=== PATIENT | male | born 1970 | race Caucasian/White ===

== ENCOUNTER 2016-10-03 21:45 | Inpatient (IN) | payer OTHER ==
--- NOTE | ~2016-10-03 | BMI ---
[facility] Nutrition Therapy DATE: 10/04/16 Patient: ASHLEY MEJIA Physician: RADHA Address: [address] [facility] Room/Bed: [address], Zip: [place] [address] Admit Date: 10/03/16 Date of : [birth year] Height: 5 5 Weight: 298 135.5 HIGH BMI NOTE: ANTHROPOMETRICS: HT: 65" WT: 135.5 KG BMI: 49.7 INTERVENTION: 1. HEART HEALTHY DIET RECOMMENDATIONS: 1. CONTINUE CURRENT DIET TOLERATED IN ORDER TO PROMOTE GRADUAL WEIGHT LOSS TOWARDS A HEALTHY BMI. Respectfully, LINSEY SORIA RD, LD Food and Nutritional Services [facility] cc: client file
--- NOTE | ~2016-10-03 | EKG ---
PATIENT: ASHLEY MEJIA UNIT #: [id number] Ventricular Rate: 106 BPM Atrial Rate: 106 BPM P-R Interval: 192 ms QRS Duration: 134 ms Q-T Interval: 358 ms QTC Calculation(Bezet): 475 ms P [place]: 58 degrees Calculated R [place]: 175 degrees Calculated T [place]: 35 degrees Diagnosis Line: Sinus tachycardia with Premature supraventricular Diagnosis Line: complexes Diagnosis Line: Right bundle branch block , plus right ventricular Diagnosis Line: hypertrophy Diagnosis Line: Abnormal ECG Diagnosis Line: When compared with ECG of 27-JUL-2016 23:30, Diagnosis Line: Premature supraventricular complexes are now Diagnosis Line: Present Diagnosis Line: QRS axis Shifted right Diagnosis Line: Questionable change in initial forces of Septal Diagnosis Line: leads Diagnosis Line: Confirmed by RENA CAR, MASON ([id number]) on 10/04/2016 Diagnosis Line: 6:34:30 AM INTERPRETING MD: RENA CAR
--- NOTE | ~2016-10-03 | HP ---
Unit #: [id number] #: [id number] Patient: ASHLEY MEJIA [id number] [address] [address] [id number] I MR#: [id number] NAME: ASHLEY MEJIA ROOM: 97838 Age: 46 Sex: M Admission Date: 10/03/2016 : 1970 Attending Physician: Carine Crisostomo M.D. Primary Care Physician: Primary Care Physician No HISTORY AND PHYSICAL CHIEF COMPLAINT Vrujp-lq-ombadnz respiratory failure secondary to pneumonia, COPD exacerbation, and decompensated congestive heart failure. HISTORY OF PRESENT ILLNESS This 46-year-old male with ischemic cardiomyopathy, COPD with chronic respiratory failure, obstructive sleep apnea, is admitted for usmjo-wf-uerzhzn respiratory failure. The patient states that he was well until two weeks prior to admission when he developed increasing shortness of breath with deep cough productive of brown sputum. He has been more short of breath over the past two days. Recently developed fevers, chills, pleuritic chest discomfort and wheezing. He presented to this emergency department where his initial O2 saturation was okay on nasal cannula. However, an ABG demonstrates kjiwc-zo-lkzrtus hypoxic hypercapnic respiratory failure. Therefore, BiPAP was placed. Chest x-ray shows right lower lobe pneumonia and likely congestive heart failure, patient's BNP is higher than usual. In the ER, he currently is receiving Solu-Medrol, Rocephin, Levaquin and Lasix. He looks to be quite comfortable. In fact, he pulls off his mask to give me history. Although he has a history of obstructive sleep apnea, he states that his BiPAP machine was recently taken away from him. He is having some difficulty I believe in obtaining his home oxygen as well possibly. PAST MEDICAL HISTORY 1. Admission in June for chronic cholecystitis requiring laparoscopic cholecystectomy. 2. Obstructive sleep apnea on BiPAP. 3. Ischemic cardiomyopathy status post two-vessel CABG in 2010. Prior to that, the patient had a PCI and stent. Ejection fraction 35%. He is status post tissue mitral valve replacement and is status post AICD placement. 4. Essential hypertension. 5. Hyperlipidemia. 6. COPD on 2.5 liters of oxygen. 7. Depression. 8. Chronic right bundle branch block. 9. Morbid obesity. 10. Cholecystectomy. ALLERGIES No known drug allergies. Unit #: [id number] #: [id number] Patient: ASHLEY MEJIA HOME MEDICATIONS 1. Lisinopril 10 mg daily. 2. Ventolin inhaler. 3. Lasix 20 mg daily. 4. Aldactone 25 mg daily. 5. Coreg 3.125 mg b.i.d. 6. Pravachol 20 mg h.s. 7. Singulair 10 mg q.a.m. 8. Breo Ellipta. However, in June, patient was discharged home on: Pulmike, Perforomist, Aaron Brunson. SOCIAL HISTORY The patient lives with his and son. He smokes two cigarettes daily, denies alcohol use. FAMILY HISTORY Negative for lung disease. REVIEW OF SYSTEMS Notable for increasing shortness of breath, productive cough, fevers, sweats, chills, wheezing, pleuritic chest discomfort, STANISLAW, COPD, ischemic cardiomyopathy, essential hypertension, hyperlipidemia, cholecystectomy, tobacco use. All other systems were reviewed and are negative. PHYSICAL EXAMINATION VITAL SIGNS: Temperature 98.1, pulse 89, respirations 18, blood pressure 155/96, O2 saturation 94% on arrival to the ER but I am unsure how much oxygen patient required. GENERAL: Pleasant, 46-year-old male currently in no acute distress. HEENT: Eyes PERRLA. Extraocular muscles are intact. Pharynx difficult to see due to BiPAP in place. NECK: Supple without adenopathy or thyromegaly. CHEST: Crackles at the bases, particularly at the right. Rhonchi noted. Mild wheeze noted. HEART: Normal S1, S2 with no definite murmur. ABDOMEN: Bowel sounds are present. There is a hard area subcutaneously mid abdomen. No tenderness or hepatosplenomegaly. EXTREMITIES: Without edema. Pedal pulses are diminished. NEUROLOGIC: Awake, alert, oriented. Cranial nerves are intact. Equal strength throughout. DIAGNOSTIC STUDIES LABORATORY: Hematocrit 41.8, white blood count 10.5, normal platelet count. SMA-12 chloride 91, CO2 is 42, albumin 3.3. BNP 754. Lactic acid normal. Cardiac markers negative. ABG pH 7.25, pCO2 is 103, pO2 is 90, O2 saturation 93.5% on 4 liters. IMAGING: Chest x-ray cardiomegaly, possible congestive heart failure, right lower lobe infiltrate. CARDIOVASCULAR: EKG shows sinus tachycardia rate 106 with a right bundle branch block which was noted previously. ASSESSMENT 1. Nmjen-ls-odgggrn hypoxic hypercapnic respiratory failure due to community-acquired pneumonia, chronic obstructive pulmonary disease Unit #: [id number] #: [id number] Patient: ASHLEY MEJIA exacerbation, and decompensated congestive heart failure. 2. Zqwwr-rs-wdxedfx systolic congestive heart failure. 3. Ischemic cardiomyopathy, ejection fraction 35%, status post AICD, CABG, and tissue mitral valve replacement. 4. Morbid obesity. 5. Ongoing tobacco abuse. 6. Essential hypertension. 7. Obstructive sleep apnea. For some reason, patient's BiPAP was removed from his home. 8. Hyperlipidemia. PLAN 1. IV Lasix, obtain I's and O's and daily weights. 2. Rocephin and Levaquin pending blood and sputum cultures. Will write for Perforomist, DuoNeb, steroids. 3. DVT prophylaxis. 4. 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 5. Repeat labs in the morning. 6. Obtain urinalysis. Critical care time spent in evaluating this patient was 35 minutes. Dictated by Carine Crisostomo M.D. AML/cs TD: 10/03/2016 22:41 JOB #: [id number] HISTORY AND PHYSICAL Page 1 of 1 X Carine Crisostomo MD X HISTORY AND PHYSICAL
--- NOTE | ~2016-10-03 | CO ---
Unit #: [id number] #: [id number] Patient: ASHLEY MEJIA [id number] [address] [place], [place] [address] [id number] I MR#: [id number] NAME: ASHLEY MEJIA ROOM: CICCU3 Age: 46 Sex: M Admission Date: 10/03/2016 : 1970 Attending Physician: Lul Rice M.D. Consultation Date: 10/04/2016 CONSULTATION REPORT REASON FOR CONSULTATION Congestive heart failure. HISTORY OF PRESENT ILLNESS This is a 46-year-old white male, who is known to our group, who has a history of coronary artery disease, where he underwent coronary artery bypass graft x2 with tissue mitral valve replacement in 2010. He is known to have chronic systolic heart failure and ischemic cardiomyopathy with echocardiogram in 2012 shows an ejection fraction of 20% to 25%. He has hypertension, hyperlipidemia, and nonsustained ventricular tachycardia. The patient is admitted with a complaint of shortness of breath and cough with productive sputum that is brown. His symptoms have been ongoing for the past one week. He has increased his use of pillows to three. He reports no leg edema. He had substernal chest pain, which he describes as sharp, constant that last for three days. There was no radiation to his neck, arm, or jaw. He had a subjective fever, where he was very "hot." He eventually came to the emergency room for evaluation, where he was found to have chest x-ray that was noted for congestive heart failure and pneumonia. BNP elevated at 752. His troponin was negative with no acute ischemic changes on his EKG. He has been diuresed with one dose of IV diuretics. He was started on antibiotics for pneumonia. From a cardiac standpoint, the patient states prior to a week ago, he was doing fine after recent ventral hernia repair with cholecystectomy in June. He does not follow a fluid restriction nor has he ever been told. He drinks "a lot of" water a day. He says he is compliant and taking medications and salt restriction. PAST MEDICAL HISTORY 1. 2D echocardiogram, 09/18/2012, which shows an ejection fraction of 20% to 25% with mild concentric left ventricular hypertrophy. There is mild mitral regurgitation. Prosthetic mitral valve. 2. Repeat echocardiogram, 04/03/2014, shows very technically limited study. 3. Lexiscan Cardiolite stress test, 02/16/2013, shows no obvious stress-induced ischemia. There was severe septal hypokinesis of the left ventricle. Ejection fraction of 38%. 4. Coronary artery bypass graft x2 with tissue mitral valve replacement, 11/2010, at [facility]. 5. Ischemic cardiomyopathy, status post [employer] AICD. 6. Chronic systolic heart failure with an ejection fraction of 35%. 7. Hypertension. 8. Hyperlipidemia. Unit #: [id number] #: [id number] Patient: ASHLEY MEJIA 9. Nonsustained ventricular tachycardia. 10. Right bundle-branch block. 11. Obstructive sleep apnea, currently without a CPAP. 12. COPD, on home oxygen. 13. Asthma. 14. Morbid obesity. 15. Active smoker. PAST SURGICAL HISTORY 1. Coronary artery bypass graft x2 with tissue mitral valve replacement, 11/2010. 2. AICD implantation. 3. Laparoscopic cholecystectomy with laparoscopic ventral hernia repair, 06/2016. SOCIAL HISTORY The patient is disabled. He says he smokes two cigarettes a day that has cut back from two packs per day. He mostly uses a wheelchair. Sedentary lifestyle. Denies illicit drug or alcohol use. FAMILY HISTORY Father in his 40s from a myocardial infarction. ALLERGIES No known drug allergies. HOME MEDICATIONS Lisinopril 10 mg daily, albuterol 2 puffs q.4 hours p.r.n., furosemide 20 mg b.i.d., Aldactone 25 mg daily, carvedilol 3.125 mg b.i.d., pravastatin 20 mg q.h.s., Singulair 10 mg daily, Breo Ellipta 200/25 mg daily. REVIEW OF SYSTEMS CONSTITUTIONAL: Negative for weight gain or weight loss. Has a subjective fever. Denies chills. HEENT: No headache. No vision changes or difficulty with swallowing. No dizziness. CARDIOVASCULAR: Has chest discomfort described in the HPI. Denies palpitations. No paroxysmal nocturnal dyspnea with 3-pillow orthopnea. Denies syncope or near syncope. Denies discharge in his AICD. RESPIRATORY: Has dyspnea at rest or with productive cough with brown sputum. No hemoptysis. GASTROINTESTINAL: No abdominal pain, nausea, or vomiting. No constipation or melena. EXTREMITIES: Negative for lower extremity edema. PHYSICAL EXAMINATION VITAL SIGNS: Blood pressure 127/81, heart rate 108, temperature 97.7, BMI is 49. GENERAL: This is a very pleasant 46-year-old young, morbidly obese, white male, who is in no acute respiratory distress. NEUROLOGIC: He is awake, alert, and oriented. There are no focal weaknesses. NECK: Trachea is midline. No thyromegaly. No lymphadenopathy. No jugular venous distention. HEART: S1, S2. Heart sounds are normal. No murmurs, rubs, or clicks. Regular rate and rhythm. LUNGS: With fine crackles at both lung bases. No rhonchi or rales. ABDOMEN: Soft and obese with bowel sounds are present. No organomegaly. Unit #: [id number] #: [id number] Patient: ASHLEY MEJIA EXTREMITIES: Without leg edema. SKIN: Warm and dry. DIAGNOSTIC STUDIES LABORATORY RESULTS: Glucose 125, BUN 27, creatinine 0.8, sodium 138, potassium 4.7. BNP 754. Troponin less than 0.05 and less than 0.03. White count 11.3, hemoglobin 12.3, hematocrit 39.7, platelet count 258. IMAGING STUDIES: Chest x-ray noted for congestive heart failure. There is cardiomegaly with diffuse prominence of the pulmonary vasculature. Air space disease in the right lateral lung base, concerning for pneumonia. CARDIOVASCULAR: EKG; sinus tachycardia with a rate of 105 beats per minute with rightward axis deviation. Right bundle-branch block. Questionable old septal infarct with Q waves noted in V1 and V2. IMPRESSION 1. Acute on chronic respiratory failure. 2. Acute on chronic systolic heart failure with reduced ejection fraction of 35%. 3. Chronic obstructive pulmonary disease exacerbation. 4. Hypertension. 5. Hyperlipidemia. 6. Right bundle-branch block. 7. History of coronary artery bypass graft x2 with tissue mitral valve replacement in 2010. PLAN 1. Cardiology was consulted for congestive heart failure. The patient has been given IV diuretics, but it is changed to oral. We will start the patient on dobutamine drip and give IV diuretics. 2. Carvedilol will be held while on dobutamine drip. 3. Encourage the patient to quit smoking. 4. Encourage weight loss. 5. We will have cardiac rehab to see the patient. 6. Start on aspirin 81 mg daily. 7. Continue LAILA inhibitor for afterload reduction. 8. Trend cardiac enzymes, troponin, and EKG. 9. We will follow the patient with you. Thank you for allowing us to assist in this patient's care. Dictated by... Yonis Mahajan/bryan TD: 10/05/2016 03:26 JOB #: [id number] Unit #: [id number] #: [id number] Patient: ASHLEY MEJIA CONSULTATION REPORT Page 1 of 1 X Edward Stein APRN X CONSULTATION REPORT
--- NOTE | ~2016-10-03 | EKG ---
PATIENT: ASHLEY MEJIA UNIT #: [id number] Ventricular Rate: 110 BPM Atrial Rate: 110 BPM P-R Interval: 158 ms QRS Duration: 128 ms Q-T Interval: 346 ms QTC Calculation(Bezet): 468 ms P [place]: 61 degrees Calculated R [place]: 120 degrees Calculated T [place]: 31 degrees Diagnosis Line: Sinus tachycardia Diagnosis Line: Possible Left atrial enlargement Diagnosis Line: Right bundle branch block Diagnosis Line: Left posterior fascicular block Diagnosis Line: Bifascicular block Diagnosis Line: Anteroseptal infarct (cited on or before Diagnosis Line: 04-OCT-2016) Diagnosis Line: Abnormal ECG Diagnosis Line: When compared with ECG of 04-OCT-2016 03:49, Diagnosis Line: (unconfirmed) Diagnosis Line: No significant change was found Diagnosis Line: Confirmed by MASON CHASE MD ([id number]) on 10/06/2016 Diagnosis Line: 7:06:22 AM INTERPRETING MD: RENA CAR
--- NOTE | ~2016-10-03 | CR72 ---
[facility] A Service of [facility] & [facility] RADIOLOGY TEXT RESULTS PATIENT: ASHLEY MEJIA LOCATION: [facility] CICCU3-20 : [birth year] UNIT #: [id number] AGE: [address]: Lul Rice MD SEX: M ORDER DR: [id number] [facility] [address]. [place], [place] [address] [id number] I MR#: [id number] Acc #: [id number] NAME: ASHLEY MEJIA : 1970 SEX: M STUDY DATE/TIME: 10/03/2016 20:44 UNIT: CEDOF ROOM: 33200 STUDY DESCRIPTION: CR Chest Single View Portable Attending Physician: Carine Crisostomo M.D. Ordering Physician: Cedrick Cox M.D. Primary Care Physician: Primary Care Physician No MEDICAL IMAGING REPORT This report is preliminary unless electronic signature is present EXAM Portable chest HISTORY Shortness of air, chest pain x2 days. COMPARISON 07/27/2016 FINDINGS Portable view of the chest demonstrates parenchymal opacity right lateral lung base concerning for acute airspace disease or pneumonia. This could also represent pulmonary edema. There is cardiomegaly with diffuse prominence of the pulmonary vascularity and interstitium, which does support diffuse pulmonary edema. No sizable effusions. Stable cardiomegaly in this patient post median sternotomy. Single-lead pacemaker noted. No visible pneumothorax. Dictated by... Iris Vanessa M.D. THIS IS AN ELECTRONICALLY VERIFIED REPORT Iris Vanessa M.D. at 10/04/2016 6:36 PM BARRINGTON/yoli TD: 10/04/2016 00:47 JOB #: [id number] MEDICAL IMAGING REPORT Page 1 of 1 COPY
--- NOTE | ~2016-10-03 | CO ---
Unit #: [id number] #: [id number] Patient: ASHLEY EMJIA [id number] [address] [place], [place] [address] [id number] MR#: [id number] NAME: ASHLEY MEJIA ROOM: CIC3 Age: 46 Sex: M Admission Date: 10/03/2016 : 1970 Attending Physician: Lul Rice M.D. Primary Care Physician: Primary Care Physician No Consultation Date: 10/05/2016 CONSULTATION REPORT REASON FOR CONSULTATION Positive blood cultures. HISTORY OF PRESENT ILLNESS This is a 46-year-old morbidly obese gentleman with a history of ischemic cardiomyopathy, COPD, chronic respiratory failure, obstructive sleep apnea, history of AICD and tissue mitral valve replacement, was admitted with shortness of breath with cough and purulent sputum production. There is apparently history of subjective fever as well, but none was documented in the hospital. He was admitted to the ICU and started on ceftriaxone and Levaquin. Today, the blood cultures grew coag-negative Staph, 2/2 sets 30 minutes apart for which ID was consulted. The patient is clinically stable. He is awake and alert and does not appear to be in any distress. There is no documented hypotension, fever, etc. He does have AICD in place without any swelling or pain in that area. He also has a history of mitral valve replacement. Chest x-ray shows possible right lower lobe infiltrate. Epidemiologic history was negative. PAST MEDICAL HISTORY Chronic cholecystitis, recent cholecystectomy, obstructive sleep apnea on BiPAP, ischemic cardiomyopathy, history of AICD and tissue mitral valve, hypertension, hyperlipidemia, COPD on home oxygen, depression, chronic right bundle-branch block, morbid obesity, recent cholecystectomy, and hernia. ALLERGIES None. CURRENT MEDICATIONS Methylprednisolone, albuterol, ipratropium, budesonide, enoxaparin, formoterol, levofloxacin, and ceftriaxone. Home medications; lisinopril, Ventolin, Lasix, Aldactone, Coreg, Pravachol, Singulair, and Breo Ellipta. SOCIAL HISTORY He is . Lives with his at home. He continued to smoke daily. No history of alcohol use. FAMILY HISTORY Negative. SYSTEMIC REVIEW Shortness of breath, mild cough, subjective fever. No chest pain, headache, focal neurologic symptoms, abdominal pain, dysuria, frequency, urgency, hematuria, nausea, vomiting, or diarrhea. Unit #: [id number] #: [id number] Patient: ASHLEY MEJIA PHYSICAL EXAMINATION GENERAL: Reveals a morbidly obese male, who is awake and alert, in no acute distress. VITAL SIGNS: Stable, temperature 97.9, heart rate 100, respirations 20, blood pressure 122/62. No fever documented during this admission. HEENT: Shows poor dental hygiene. NECK: Supple. There is trace edema bilaterally. LUNGS: Reveals scattered crackles at the bases. HEART: Sounds are muffled. There are no murmurs. AICD site is clean. There is no abscess or cellulitis locally. PICC line which was placed yesterday looks fine and blood culture were drawn a day earlier, however. NEUROLOGIC: Nonfocal. DIAGNOSTIC STUDIES LABORATORY RESULTS: Blood culture 2/2 sets 30 minutes apart positive for coag-negative Staph. Sputum culture is pending. White count is 15, hematocrit 37, platelets 254, neutrophils 93%. Legionella antigen is negative. Sodium 138, potassium 4.7, chloride 90, CO2 of 41, glucose 133, BUN 28, creatinine 0.8. Strep pneumo antigen is negative. Troponin less than 0.3. Urinalysis, negative for UTI. ABG shows pCO2 of 92, pH of 7.3, PO2 of 125 on 5 L nasal cannula. Lactic acid 0.8. IMAGING STUDIES: Chest x-ray, parenchymal opacity right lateral lung base concerning for acute airspace disease, could also be consistent with pulmonary edema. Diffuse pulmonary vascularity and interstitium. No effusion. IMPRESSION Coag-negative Staph bacteremia in the setting of automatic implantable cardioverter-defibrillator and tissue mitral valve with possible congestive heart failure exacerbation versus pneumonia. There is a high suspicion for mitral endocarditis and/or pacemaker endocarditis. RECOMMENDATIONS I will repeat 2 blood cultures straightaway, ordered 2D echo. Continue vancomycin, add rifampin, discontinue levofloxacin, ceftriaxone should be adequate for community-acquired pneumonia. Further recommendation will follow. Prognosis is guarded. Dictated by... Cuauhtemoc Del Angel/bryan TD: 10/06/2016 00:56 JOB #: [id number] Unit #: [id number] #: [id number] Patient: ASHLEY MEJIA CONSULTATION REPORT Page 1 of 1 X Rafael Solomon MD CONSULTATION REPORT
--- NOTE | ~2016-10-03 | DS ---
Unit #: [id number] #: [id number] Patient: ASHLEY MEJIA [id number] [facility]. [place], [place] [address] [id number] I MR#: [id number] NAME: ASHLEY MEJIA ROOM: 310 Age: 46 Sex: M Admission Date: 10/03/2016 : 1970 Discharge Date: 10/09/2016 Attending Physician: Lul Rice M.D. Primary Care Physician: No Primary Care Physician DISCHARGE SUMMARY REASON FOR ADMISSION Acute hypoxic respiratory failure. HISTORY OF PRESENT ILLNESS/HOSPITAL COURSE Patient is a 46-year-old, morbidly obese gentleman with underlying history of chronic respiratory failure secondary to end stage COPD on home 2 liters, ischemic cardiomyopathy, obstructive sleep apnea with longstanding history of noncompliance who presents with a 2-weeks history of shortness of breath and dyspnea. Initial ABG did demonstrate acute on chronic hypoxic hypercapnic respiratory failure. BiPAP was placed. Chest x-ray revealed right lower lobe pneumonia as well as fluid overload/congestive heart failure. Patient was subsequently placed in the ICU for further evaluation. In regards to his respiratory status as well as ICU management, consultation was placed to Dr. Cabrera and associates. He was initially placed on BiPAP support, which was gradually weaned as well as IV Solu-Medrol, aerosols, and IV antibiotics. These were later discontinued and transitioned to p.o. medications. From a respiratory standpoint, they have stated patient is currently clear for discharge home. He does have a longstanding history of noncompliance with (1) nebulizers and inhalers. He, at this point in time, appears to be at baseline. His O2 requirements are ranging anywhere from 2-4 liters with ambulation. Sometimes, his O2 saturations do diminish and he will be appropriately adjusted at time of discharge. In regards to his respiratory status as well as prior history of heart failure, a consultation was placed to Dr. Joseph of [facility] Cardiology services. Patient underwent a transthoracic echocardiogram, which did reveal an ejection fraction of approximately 50%. At that time, he was on dobutamine drip secondary to heart failure exacerbation. It also revealed a bioprosthetic mitral valve versus mitral valve repair, which was not well visualized. A severely dilated right ventricle as well as severe septal hypokinesis, which was noted. From a cardiac standpoint, they continued to follow the patient. His medications were adjusted as appropriate. His initial blood cultures did come back from 10/03/2016 Staph. coag. Negative bacteremia, 07/25, and in regard to same, we placed consultation to ID services. ID services did recommend ABDIRAHMAN to which patient underwent, which did reveal ejection fraction closer to 35% with a prosthetic valve in the mitral area with no obvious vegetation. His AICD lead was very Unit #: [id number] #: [id number] Patient: ASHLEY MEJIA thickened, but there was no obvious vegetation which was noted. Repeat blood cultures from 10/05/2016 did not yield an acute bacterial growth and through the course here, he was maintained on IV antibiotics per the discussion of ID services. At time of discharge, ID has recommended IV vancomycin to be continued until 10/19/2016 as well as Omnicef 300 mg p.o. b.i.d. until 10/19/16. Once IV vancomycin is set up for the patient at home, he will be transitioned and/or discharged home. Physical and occupational therapy services have both seen and evaluated patient and have felt as though he is at baseline and stable for discharge. Overall, this patient's prognosis is guarded/poor. His chance of readmission is elevated secondary to the longstanding history of noncompliance as well as poor insight into his chronic medial conditions. He continues to smoke on a daily basis. FINAL DISCHARGE DIAGNOSES 1. Acute on chronic respiratory failure. 2. Acute hypercapnic hypoxic respiratory failure on admission. 3. Heart failure exacerbation. 4. Fluid overload. 5. Systolic heart failure, ejection fraction 35%. 6. Prosthetic mitral valve replacement. 7. Status post automatic implantable cardioverter-defibrillator placement. 8. Ischemic cardiomyopathy. 9. Obstructive sleep apnea with longstanding history of noncompliance. 10. Hypertension. 11. Hyperlipidemia. 12. End stage chronic obstructive pulmonary disease on 2-3 liters of home O2. 13. Depression. 14. Chronic right bundle branch block. 15. Morbid obesity. 16. Chronic immobility syndrome. FINAL DISCHARGE MEDICATIONS 1. Albuterol aerosol 2 puffs q.4 p.r.n. 2. DuoNeb aerosol solution q.6 scheduled. 3. Tylenol 650 mg p.o. q.4-6 p.r.n. 4. Omnicef 300 mg p.o. b.i.d. until 10/19/2016. 5. Breo Ellipta 200/25 one inhalation daily. 6. Lasix 40 mg p.o. b.i.d. 7. Pravachol 20 mg p.o. q.h.s. 8. Singulair 10 mg p.o. q.a.m. 9. Aspirin 81 mg daily. 10. Aldactone 25 mg p.o. every day. 11. Vancomycin to be administered until 10/19/2016. 12. Prednisone 40 mg p.o. every day x5 days. Dictated by... Cuauhtemoc Aguillon/lilliana TD: 10/10/2016 08:22 JOB #: [id number] Unit #: [id number] #: [id number] Patient: ASHLEY MEJIA DISCHARGE SUMMARY Page 1 of 1 X Lul Rice MD X DISCHARGE SUMMARY
--- NOTE | ~2016-10-03 | CR72 ---
[facility] A Service of [facility] RADIOLOGY TEXT RESULTS PATIENT: ASHLEY MEJIA [facility]ATION: [facility] UNIT #: [id number] AGE: [address]: Lul Rice MD SEX: M ORDER DR: [id number] [facility] [address] [facility]. [place], [place] [address] [id number] I MR#: [id number] Acc #: [id number] NAME: ASHLEY MEJIA : 1970 SEX: M STUDY DATE/TIME: 10/05/2016 5:27 UNIT: [facility] ROOM: [facility] STUDY DESCRIPTION: CR Chest Single View Portable Attending Physician: Lul Rice M.D. Ordering Physician: Rufino Cabrera M.D. Primary Care Physician: No Primary Care Physician MEDICAL IMAGING REPORT This report is preliminary unless electronic signature is present EXAM Portable chest, 10/05/2016 HISTORY Respiratory failure. Shortness of air 3 days. COMPARISON STUDIES Comparison chest 10/03/2016 FINDINGS Two frontal views of the chest demonstrate stable cardiomegaly. Persistent mild central vascular congestion and diffuse bilateral interstitial opacities are unchanged. Small right pleural effusion is slightly improved. Median sternotomy wires. Right PICC line has been placed with tip projecting over the lower SVC. No pneumothorax. Left-sided AICD complex. IMPRESSION 1. Placement of right PICC line with tip projecting over the lower SVC. No pneumothorax. 2. No change in cardiomegaly and mild bilateral interstitial opacities. 3. Slight interval improvement in small right pleural effusion Dictated by... Braden Lucas M.D. THIS IS AN ELECTRONICALLY VERIFIED REPORT Braden Lucas M.D. at 10/06/2016 8:12 AM GURPREET/olaf [facility] A Service of [facility] RADIOLOGY TEXT RESULTS PATIENT: ASHLEY MEJIA [facility] UNIT #: [id number] AGE: [address]: Lul Rice MD SEX: M ORDER DR: TD: 10/06/2016 00:11 JOB #: [id number] MEDICAL IMAGING REPORT Page 1 of 1 COPY
--- NOTE | ~2016-10-03 | CR63 ---
[facility] A Service of [facility] RADIOLOGY TEXT RESULTS PATIENT: ASHLEY MEJIA LOCATION: [facility] 310-01 : 72 UNIT #: [id number] AGE: [address]: Lul Rice MD SEX: M ORDER DR: [id number] [facility] [address] [facility]. [place], [place] [address] [id number] I MR#: [id number] Acc #: [id number] NAME: ASHLEY MEJIA : 1970 SEX: M STUDY DATE/TIME: 10/07/2016 18:20 UNIT: A U ROOM: 310 STUDY DESCRIPTION: CR Chest 2 View Attending Physician: Lul Rice M.D. Ordering Physician: Boris Garcia M.D. Primary Care Physician: Primary Care Physician No MEDICAL IMAGING REPORT This report is preliminary unless electronic signature is present EXAM Two-view chest 10/07/2016 INDICATIONS Congestive heart failure, shortness of air and weakness, respiratory failure symptoms for the past 5 days, hypertension. TECHNIQUE Frontal chest compared with 10/05/2016 FINDINGS Portions of both lung apices are excluded from view. Right-sided PICC line extends to the mid SVC level. Postop changes of median sternotomy, heart valve replacement and left-sided pacemaker/defibrillator placement present. Cardiac silhouette is enlarged; there is mild vascular congestion and interstitial edema. No new effusion, pneumothorax or dense consolidation. Faint atelectasis or infiltrate at the right CP angle. IMPRESSION 1. Cardiomegaly and mild volume overload. Findings are similar to the prior study. No pneumothorax. Dictated by... Fausto Fiore M.D. THIS IS AN ELECTRONICALLY VERIFIED REPORT Fausto Fiore M.D. at 10/08/2016 2:51 PM CHIRAG/yoli TD: 10/08/2016 00:28 JOB #: [id number] [facility] A Service of [facility] RADIOLOGY TEXT RESULTS PATIENT: ASHLEY MEJIA LOCATION: [facility] 310-01 : 72 UNIT #: [id number] AGE: [address]: Lul Rice MD SEX: M ORDER DR: MEDICAL IMAGING REPORT Page 1 of 1 COPY
--- NOTE | ~2016-10-03 | CO ---
Unit #: [id number] #: [id number] Patient: ASHLEY MEJIA [id number] [address] [place], [place] [address] [id number] I MR#: [id number] NAME: ASHLEY MEJIA ROOM: CIC3 Age: 46 Sex: M Admission Date: 10/03/2016 : 1970 Attending Physician: Lul Rice M.D. Primary Care Physician: Primary Care Physician No Consultation Date: 10/04/2016 CONSULTATION REPORT HISTORY OF PRESENT ILLNESS This is a pleasant 46-year-old gentleman with a history of obstructive sleep apnea, ischemic cardiomyopathy, COPD. The patient was previously here in 06/2016 for cholecystitis and ventral hernia repair as well as COPD exacerbation. The patient was treated and was sent home. The patient had been doing well until approximately 2 weeks prior when he started having progressive shortness of breath. However, in the past 3 to 4 days, it has gotten significantly worse with cough, shortness of air, fever, chills, nausea, vomiting, diarrhea. The cough was productive of brown sputum. The patient is having some chest pain. Chest x-ray shows right lateral lung infiltrate consistent with a new pneumonia infiltrate towards the pleura. The patient had been on his BiPAP; however, recently it was taken away from him likely for noncompliance. We are going to try to re-titrate him as an outpatient. For now, I agree with the BiPAP of 05/28 to 14 and we have been asked to see him for treatment of this pneumonia. PAST MEDICAL HISTORY Significant for chronic cholecystitis requiring laparoscopic cholecystectomy last hospitalization; obstructive sleep apnea, on BiPAP; ischemic cardiomyopathy, status post 2-vessel CABG in 2010; history of PCI; history of ejection fraction of 35%. The patient has essential hypertension and hyperlipidemia. At home, he is on 2.5 L of oxygen at rest. The patient also has a chronic right bundle-branch block and depression. PAST SURGICAL HISTORY Significant for cholecystectomy, coronary artery bypass graft. ALLERGIES The patient has no known medical allergies. HOME MEDICATIONS Include lisinopril 10 mg daily; Ventolin 2 puffs q.4 hours as needed; Lasix 20 mg daily; Aldactone 25 mg daily; Coreg 3.125 mg b.i.d.; Pravachol 20 mg q.h.s.; Singulair 10 mg q.a.m.; Breo Ellipta. SOCIAL HISTORY The patient lives with and son. Smokes about 2 cigarettes daily. FAMILY HISTORY Negative for lung disease. PHYSICAL EXAMINATION Unit #: [id number] #: [id number] Patient: ASHLEY MEJIA HEENT: Extraocular movements are intact. CHEST: Clear to auscultation bilaterally. CARDIOVASCULAR: Regular rate. No gallop. ABDOMEN: Soft, nontender, nondistended. EXTREMITIES: Show no evidence of edema. DIAGNOSTIC STUDIES LABORATORY RESULTS: Potassium 4.7, BUN and creatinine 27 and 0.8, glucose 125. Average CK of 24. INR is 1.1. White count 11.3, hemoglobin 12.3, platelets of 258. ASSESSMENT 1. Pneumonia. 2. Failure of outpatient treatment. 3. Chronic obstructive pulmonary disease exacerbation. 4. Ischemic cardiomyopathy. 5. Acute on chronic respiratory failure. 6. Ischemic cardiomyopathy. PLAN The patient is on dobutamine drip. We are going to continue broad-spectrum antibiotics. Continue flutter valve. Continue scheduled nebs. Continue steroids for another day. Hopefully, the patient will be feeling better in a day or so and we will be able to get him off the unit. The patient has 1/2 gram-positive cocci in clusters. We will continue antibiotics for now and hopefully the patient's respiratory status will return. Dictated by... Rufino Cabrera M.D. MARIE/bryan TD: 10/05/2016 06:11 JOB #: [id number] CONSULTATION REPORT Page 1 of 1 X Romel Cabrera MD X CONSULTATION REPORT
--- NOTE | ~2016-10-03 | EKG ---
PATIENT: ASHLEY MEJIA UNIT #: [id number] Ventricular Rate: 108 BPM Atrial Rate: 108 BPM P-R Interval: 170 ms QRS Duration: 134 ms Q-T Interval: 338 ms QTC Calculation(Bezet): 452 ms P [place]: 70 degrees Calculated R [place]: 132 degrees Calculated T [place]: 68 degrees Diagnosis Line: Sinus tachycardia Diagnosis Line: Possible Left atrial enlargement Diagnosis Line: Right bundle branch block , plus right ventricular Diagnosis Line: hypertrophy Diagnosis Line: Septal infarct (cited on or before 04-OCT-2016) Diagnosis Line: Abnormal ECG Diagnosis Line: When compared with ECG of 04-OCT-2016 17:30, Diagnosis Line: (unconfirmed) Diagnosis Line: Serial changes of Septal infarct Present Diagnosis Line: Confirmed by MASON CHASE MD ([id number]) on 10/06/2016 Diagnosis Line: 7:16:06 AM INTERPRETING MD: RENA CAR
--- NOTE | ~2016-10-03 | EKG ---
PATIENT: ASHLEY MEJIA UNIT #: [id number] Ventricular Rate: 105 BPM Atrial Rate: 105 BPM P-R Interval: 182 ms QRS Duration: 134 ms Q-T Interval: 360 ms QTC Calculation(Bezet): 475 ms P [place]: 62 degrees Calculated R [place]: 110 degrees Calculated T [place]: 48 degrees Diagnosis Line: Sinus tachycardia Diagnosis Line: Possible Left atrial enlargement Diagnosis Line: Right bundle branch block Diagnosis Line: Septal infarct (cited on or before 04-OCT-2016) Diagnosis Line: Abnormal ECG Diagnosis Line: When compared with ECG of 03-OCT-2016 20:14, Diagnosis Line: Premature supraventricular complexes are no longer Diagnosis Line: Present Diagnosis Line: Questionable change in initial forces of Septal Diagnosis Line: leads Diagnosis Line: Confirmed by RENA CAR, MASON ([id number]) on 10/06/2016 Diagnosis Line: 6:59:39 AM INTERPRETING MD: RENA CAR
[2016-10-03 20:22] LABS: ARTERIAL BLD GAS O2 SATURATION 93.5 % (90.0-100.0); ARTERIAL BLOOD GAS CARBOXY HB 1.2 %sat (0.0-9.0); ARTERIAL BLOOD GAS HCO3 45.2 mmol/L; ARTERIAL BLOOD GAS MET HB 1.3 %sat (0.0-2.0); ARTERIAL BLOOD GAS PO2 90.5 mmHg (80.0-100); ARTERIAL BLOOD GAS pH 7.252 (7.350-7.450)
[2016-10-03 20:26] LABS: ARTERIAL BLOOD GAS ALLEN TEST NORMAL; ARTERIAL BLOOD GAS ART SITE RIGHT RADIAL; ARTERIAL BLOOD GAS DELIVERY NASAL CANNULA; ARTERIAL DRAW? YES
[2016-10-03 20:30] LABS: POC - CKMB 2.4 ng/mL (0.0-7.9); POC - TROPONIN <0.05 ng/mL (<=0.05)
[2016-10-03 20:43] LABS: BASOPHIL% 0.3 % (0-2.5); EOSINOPHIL% 0.4 % (0.0-7.0); HEMATOCRIT 41.8 % (38.0-50.0); HEMOGLOBIN 13.1 gm/dL (13.0-16.0); LYMPHOCYTE# 1.3 X10e3 (1.0-3.5); LYMPHOCYTE% 12.1 % (17.0-45.0); MEAN CELL VOLUME 92.4 FL (83-96); MEAN CORPUSCULAR HEMOGLOBIN 28.9 PG (28-34); MEAN CORPUSCULAR HGB CONC 31.3 g/dL (30-36); MEAN PLATELET VOLUME 6.7 FL (6.5-11.5); MONOCYTE% 9.9 % (3.0-12.0); NEUTROPHIL# 8.2 X10e3 (1.5-7.1); NEUTROPHIL% 77.3 % (40-75); PLATELET COUNT 298 X10e3 (140-420); RED BLOOD COUNT 4.52 X10e (3.90-5.60); RED CELL DISTRIBUTION WIDTH 15.7 % (11.0-15.5); WHITE BLOOD COUNT 10.5 X10e3 (4.0-10.5)
[2016-10-03 20:44] LABS: DIFF IND NO
[2016-10-03 21:11] LABS: ALBUMIN SERUM 3.3 g/dL (3.5-5.0); BILIRUBIN, DIRECT 0.1 mg/dL (0.0-0.2); BILIRUBIN,INDIRECT 0.2 mg/dL (0.0-0.9); BILIRUBIN,TOTAL 0.3 mg/dL (0.2-2.0); BUN/CREATININE RATIO 28.75; CREATININE SERUM 0.8 mg/dL (0.6-1.4); GLOM FILT RATE Estimated 107.9 mL/min (>60); POTASSIUM 5.1 mmol/L (3.5-5.1); PROTEIN TOTAL SERUM 8.2 g/dL (6.0-8.3)
[~2016-10-03 21:45] MED LIST: ALB/IPRATROPIUM/1 E1 INH; ALBUTEROL MININEB NEB; ALBUTEROL17 GM INH; ALBUTEROL20 ml INH; ALDACTONE25 MG PO; ASPIRIN ENTERI325 M1 PO; ASPIRIN325 M1 PO; ASPIRIN81 MG PO; BACTROBAN22 GM TP; BREO ELLIPTA 21 EACH; CORDARONE200 M1 PO; COREG3.125 MG PO; COREG6.25 MG PO; DELTASONE20 MG PO; DUONEBS INH; HYDROCODON-ACE1 EAC9 PO; LASIX PO; LASIX20 MG PO; LASIX80 MG PO; LISINOPRIL10 MG PO; LISINOPRIL20 MG PO; LOPRESSOR PO; MONTELUKAST SOD10 MG PO; MYCOSTATIN POWD15 GM EXT; NAPROSYN500 MG PO; NEBULIZER; NO MEDICATIONS; PERFOROMIS20 MCG/2 M INH; PHENOL-SODIUM180 M1 MM; PRAVASTATIN SOD20 MG PO; PREDNISONE10 MG PO; PREDNISONE50 MG PO; PULMICORT0.5 MG/21 INH; SENNA8.6 M1 PO; SIMVASTATIN20 MG PO; SIMVASTATIN40 MG PO; SPIRIVA RESPIMAT4 G1 INH; SYMBICORT; VIBRAMYCIN100 M1 PO; ZESTRIL10 M1 PO
[2016-10-03 22:58] LABS: ARTERIAL BLD GAS O2 SATURATION 87.2 % (90.0-100.0); ARTERIAL BLOOD GAS CARBOXY HB 1.2 %sat (0.0-9.0); ARTERIAL BLOOD GAS HCO3 44.7 mmol/L; ARTERIAL BLOOD GAS pH 7.317 (7.350-7.450)
[2016-10-03 23:03] LABS: ARTERIAL BLOOD GAS ALLEN TEST NORMAL; ARTERIAL BLOOD GAS ART SITE RIGHT RADIAL; ARTERIAL BLOOD GAS PCO2 87.6 mmHg (35.0-45.0); ARTERIAL BLOOD GAS PO2 58.4 mmHg (80.0-100); ARTERIAL DRAW? YES
[2016-10-03 23:35] LABS: URINE APPEARANCE CLEAR; URINE BILIRUBIN NEG (NEG); URINE BLOOD NEG (NEG); URINE COLOR DK YELLOW; URINE GLUCOSE NEG (NEG); URINE KETONE NEG (NEG); URINE LEUKOCYTE ESTERASE NEG (NEG); URINE NITRATE NEG (NEG); URINE PH 5.5 (5-8); URINE PROTEIN TRACE (NEG); URINE SOURCE CATH; URINE SPECIFIC GRAVITY 1.018 (1.003-1.035)
[2016-10-03 23:36] LABS: CULTURE INDICATED? NO
[2016-10-04 03:28] LABS: ARTERIAL BLD GAS O2 SATURATION 96.3 % (90.0-100.0); ARTERIAL BLOOD GAS CARBOXY HB 1.1 %sat (0.0-9.0); ARTERIAL BLOOD GAS HCO3 46.4 mmol/L; ARTERIAL BLOOD GAS MET HB 1.2 %sat (0.0-2.0); ARTERIAL BLOOD GAS pH 7.308 (7.350-7.450)
[2016-10-04 03:33] LABS: ARTERIAL BLOOD GAS PCO2 92.7 mmHg (35.0-45.0)
[2016-10-04 03:34] LABS: ARTERIAL BLOOD GAS ALLEN TEST NORMAL; ARTERIAL BLOOD GAS ART SITE RIGHT RADIAL; ARTERIAL BLOOD GAS DELIVERY NASAL CANNULA; ARTERIAL DRAW? YES
[2016-10-04 08:41] LABS: BASOPHIL% 0.2 % (0-2.5); HEMATOCRIT 39.7 % (38.0-50.0); HEMOGLOBIN 12.3 gm/dL (13.0-16.0); LYMPHOCYTE# 0.6 X10e3 (1.0-3.5); LYMPHOCYTE% 5.1 % (17.0-45.0); MEAN CELL VOLUME 92.7 FL (83-96); MEAN CORPUSCULAR HEMOGLOBIN 28.6 PG (28-34); MEAN CORPUSCULAR HGB CONC 30.9 g/dL (30-36); MEAN PLATELET VOLUME 6.6 FL (6.5-11.5); MONOCYTE# 0.4 X10e3 (0-1.0); MONOCYTE% 3.7 % (3.0-12.0); NEUTROPHIL# 10.3 X10e3 (1.5-7.1); PLATELET COUNT 258 X10e3 (140-420); RED BLOOD COUNT 4.28 X10e (3.90-5.60); RED CELL DISTRIBUTION WIDTH 15.8 % (11.0-15.5); WHITE BLOOD COUNT 11.3 X10e3 (4.0-10.5)
[2016-10-04 08:43] LABS: DIFF IND NO
[2016-10-04 09:02] LABS: INR 1.1; PARTIAL THROMBOPLASTIN TIME 24.9 SECONDS (23.5-31.3); PROTHROMBIN TIME (PATIENT) 11.6 SECONDS (9.6-11.5)
[2016-10-04 09:20] LABS: BUN/CREATININE RATIO 33.75; CALCIUM SERUM 8.7 mg/dL (8.4-10.2); CREATININE SERUM 0.8 mg/dL (0.6-1.4); GLOM FILT RATE Estimated 107.9 mL/min (>60); POTASSIUM 4.7 mmol/L (3.5-5.1)
[2016-10-05 06:53] LABS: CALCIUM SERUM 8.5 mg/dL (8.4-10.2); CREATININE SERUM 0.8 mg/dL (0.6-1.4); GLOM FILT RATE Estimated 107.9 mL/min (>60); POTASSIUM 4.7 mmol/L (3.5-5.1)
[2016-10-05 09:35] LABS: BASOPHIL% 0.2 % (0-2.5); HEMATOCRIT 37.4 % (38.0-50.0); HEMOGLOBIN 11.5 gm/dL (13.0-16.0); LYMPHOCYTE# 0.5 X10e3 (1.0-3.5); LYMPHOCYTE% 3.5 % (17.0-45.0); MEAN CELL VOLUME 92.2 FL (83-96); MEAN CORPUSCULAR HEMOGLOBIN 28.4 PG (28-34); MEAN CORPUSCULAR HGB CONC 30.8 g/dL (30-36); MEAN PLATELET VOLUME 6.8 FL (6.5-11.5); MONOCYTE# 0.4 X10e3 (0-1.0); MONOCYTE% 2.5 % (3.0-12.0); NEUTROPHIL% 93.8 % (40-75); PLATELET COUNT 254 X10e3 (140-420); RED BLOOD COUNT 4.05 X10e (3.90-5.60); RED CELL DISTRIBUTION WIDTH 15.5 % (11.0-15.5)
[2016-10-05 09:36] LABS: DIFF IND NO
[2016-10-06 05:47] LABS: BASOPHIL% 0.2 % (0-2.5); HEMATOCRIT 37.4 % (38.0-50.0); HEMOGLOBIN 11.5 gm/dL (13.0-16.0); LYMPHOCYTE# 0.5 X10e3 (1.0-3.5); LYMPHOCYTE% 4.2 % (17.0-45.0); MEAN CELL VOLUME 91.9 FL (83-96); MEAN CORPUSCULAR HEMOGLOBIN 28.2 PG (28-34); MEAN CORPUSCULAR HGB CONC 30.7 g/dL (30-36); MEAN PLATELET VOLUME 6.9 FL (6.5-11.5); MONOCYTE# 0.5 X10e3 (0-1.0); MONOCYTE% 3.7 % (3.0-12.0); NEUTROPHIL# 11.6 X10e3 (1.5-7.1); NEUTROPHIL% 91.9 % (40-75); PLATELET COUNT 229 X10e3 (140-420); RED BLOOD COUNT 4.07 X10e (3.90-5.60); RED CELL DISTRIBUTION WIDTH 15.7 % (11.0-15.5); WHITE BLOOD COUNT 12.6 X10e3 (4.0-10.5)
[2016-10-06 05:51] LABS: DIFF IND NO
[2016-10-06 06:34] LABS: BUN/CREATININE RATIO 31.25; CALCIUM SERUM 8.5 mg/dL (8.4-10.2); CREATININE SERUM 0.8 mg/dL (0.6-1.4); GLOM FILT RATE Estimated 107.9 mL/min (>60)
[2016-10-07 06:06] LABS: BUN/CREATININE RATIO 32.22; CALCIUM SERUM 7.8 mg/dL (8.4-10.2); CREATININE SERUM 0.9 mg/dL (0.6-1.4); GLOM FILT RATE Estimated 102.8 mL/min (>60)
[2016-10-08 05:38] LABS: HEMATOCRIT 38.6 % (38.0-50.0); LYMPHOCYTE# 0.8 X10e3 (1.0-3.5); LYMPHOCYTE% 5.2 % (17.0-45.0); MEAN CELL VOLUME 92.5 FL (83-96); MEAN CORPUSCULAR HEMOGLOBIN 28.8 PG (28-34); MEAN CORPUSCULAR HGB CONC 31.1 g/dL (30-36); MEAN PLATELET VOLUME 7.2 FL (6.5-11.5); MONOCYTE# 0.9 X10e3 (0-1.0); MONOCYTE% 6.3 % (3.0-12.0); NEUTROPHIL# 12.9 X10e3 (1.5-7.1); NEUTROPHIL% 88.5 % (40-75); PLATELET COUNT 194 X10e3 (140-420); RED BLOOD COUNT 4.17 X10e (3.90-5.60); RED CELL DISTRIBUTION WIDTH 15.8 % (11.0-15.5); WHITE BLOOD COUNT 14.6 X10e3 (4.0-10.5)
[2016-10-08 05:41] LABS: DIFF IND YES
[2016-10-08 06:08] LABS: ANISOCYTOSIS SL; PLATELET ESTIMATE NORMAL (NORMAL); RBC NORMAL YES
[2016-10-09 06:17] LABS: HEMATOCRIT 37.5 % (38.0-50.0); HEMOGLOBIN 11.5 gm/dL (13.0-16.0); MEAN CELL VOLUME 92.2 FL (83-96); MEAN CORPUSCULAR HEMOGLOBIN 28.3 PG (28-34); MEAN CORPUSCULAR HGB CONC 30.7 g/dL (30-36); MEAN PLATELET VOLUME 7.3 FL (6.5-11.5); RED BLOOD COUNT 4.06 X10e (3.90-5.60); RED CELL DISTRIBUTION WIDTH 15.8 % (11.0-15.5); WHITE BLOOD COUNT 11.4 X10e3 (4.0-10.5)
[2016-10-09 07:04] LABS: BUN/CREATININE RATIO 25.71; CALCIUM SERUM 7.5 mg/dL (8.4-10.2); CREATININE SERUM 0.7 mg/dL (0.6-1.4)
[2016-10-09] MEDS ORDERED: COMBIVENT U/D3 M2 INH (13:18)
[2016-10-09] MEDS ORDERED: ACETAMINOPHEN650 M1 PO (13:18)
[2016-10-09] MEDS ORDERED: ASPIRIN81 M2 PO (13:19)
[2016-10-09] MEDS ORDERED: OMNICEF300 MG PO (13:19)
[2016-10-09] MEDS ORDERED: LASIX PO (13:19)
[2016-10-09] MEDS ORDERED: VANCOCIN HCL2 GM IV (13:20)
[2016-10-09] MEDS ORDERED: PREDNISONE PO (13:21)
== END 2016-10-09 17:04 | disposition home or self-care (01) | DRG 291 ==
LOC: CED 21:45 → CEDOF 22:20 → CICCU3 10-04 05:49 → C3A PCU 10-07 15:37
PROVIDERS: Emergency Medicine; Family Medicine; Internal Medicine; Internal Medicine Cardiovascular Disease
PROC: B246YZZ Ultrasonography of Right and Left Heart using Other Contrast (ICD-10-PCS; principal; 2016-10-05)
DX: I50.23 Acute on chronic systolic (congestive) heart failure (principal); J96.21 Acute and chronic respiratory failure with hypoxia; I47.2 Ventricular tachycardia; J18.9 Pneumonia, unspecified organism; J44.1 Chronic obstructive pulmonary disease with (acute) exacerbation; J44.0 Chronic obstructive pulmonary disease with (acute) lower respiratory infection; I25.10 Atherosclerotic heart disease of native coronary artery without angina pectoris; Z95.1 Presence of aortocoronary bypass graft; Z95.2 Presence of prosthetic heart valve; I25.5 Ischemic cardiomyopathy; I10 Essential (primary) hypertension; E78.5 Hyperlipidemia, unspecified; Z90.49 Acquired absence of other specified parts of digestive tract; J45.909 Unspecified asthma, uncomplicated; E66.01 Morbid (severe) obesity due to excess calories; Z95.810 Presence of automatic (implantable) cardiac defibrillator; I45.10 Unspecified right bundle-branch block
CPT/HCPCS: 36415; 36600; 51702; 71010; 71020; 80048; 80076; 80202; 81003; 82550; 82553; 82803; 83605; 83880; 84484; 85025; 85027; 85610; 85730; 87040; 87070; 87077; 87086; 87186; 87205; 87449; 87899; 93005; 93306; 93312; 94640; 94660; 94760; 94761; 96374; 97163; 99285; G0238; J0696; J1250; J1650; J1940; J1956; J2250; J2920; J2930; J3010; J3370

== ENCOUNTER 2016-10-16 23:06 | Inpatient (IN) | payer OTHER ==
--- NOTE | ~2016-10-16 | EKG ---
PATIENT: ASHLEY MEJIA UNIT #: [id number] Ventricular Rate: 105 BPM Atrial Rate: 105 BPM P-R Interval: 212 ms QRS Duration: 134 ms Q-T Interval: 330 ms QTC Calculation(Bezet): 436 ms P [place]: 65 degrees Calculated R [place]: 78 degrees Calculated T [place]: 23 degrees Diagnosis Line: Sinus tachycardia with 1st degree A-V block with Diagnosis Line: occasional PAC's Diagnosis Line: Right bundle branch block Diagnosis Line: Abnormal ECG Diagnosis Line: When compared with ECG of 05-OCT-2016 10:25, Diagnosis Line: PAC's4 are now Present Diagnosis Line: SC interval has increased Diagnosis Line: QRS axis Shifted left Diagnosis Line: Questionable change in initial forces of Septal Diagnosis Line: leads Diagnosis Line: T wave inversion now evident in Inferior leads Diagnosis Line: Confirmed by SHARON TIM MD ([id number]) on Diagnosis Line: 10/18/2016 10:55:56 PM INTERPRETING MD: ANGELIC
--- NOTE | ~2016-10-16 | HP ---
Unit #: [id number] #: [id number] Patient: ASHLEY MEJIA [id number] [address] [place], [place] [address] [id number] MR#: [id number] NAME: ASHLEY MEJIA ROOM: 325 Age: 46 Sex: M Admission Date: 10/17/2016 : 1970 Attending Physician: Carine Crisostomo M.D. Primary Care Physician: [facility] HISTORY AND PHYSICAL CHIEF COMPLAINT Acute kidney injury while on vancomycin. HISTORY This pleasant, 46-year-old male with an ischemic cardiomyopathy and COPD is admitted for acute kidney injury. The patient was admitted to this facility 10/03/2016 for community-acquired pneumonia and decompensated congestive heart failure. He had two out of two blood culture bottles positive for coag-negative Staph. He was placed on vancomycin and Rocephin, which should finish 10/19/2016. He had routine blood work performed yesterday and was told to go to the emergency department for abnormal labs. His BUN is 30 with a creatinine of 2.2 up from a BUN of 10 and creatinine of 0.7 for 10/09/2016. Patient denies recent change in his urinary output. He is taking Aldactone and Lasix. Potassium is 5.3. In the ER, he was bolused with a liter of saline. His chest x-ray shows mild vascular congestion, which is unchanged since 10/07/2016. During the patient's last hospital stay, a ABDIRAHMAN was performed, which was negative for vegetation. He was noted to have a thickened AICD lead, but without obvious infection or vegetation. PAST MEDICAL HISTORY 1. Admission 06/2016 for chronic cholecystitis requiring laparoscopic cholecystectomy. 2. Obstructive sleep apnea no longer on BiPAP. 3. Ischemic cardiomyopathy, status post 2-vessel CABG 2010. Ejection fraction 35%. Patient is status post tissue mitral valve replacement and is status post AICD placement. 4. Recent admission for community-acquired pneumonia, 10/03 through 10/09/2016. Two out of two blood culture bottles were positive for coag-negative Staph. ABDIRAHMAN did not reveal a vegetation. Ejection fraction was 35% 5. Essential hypertension. 6. Hyperlipidemia. 7. COPD on 2.5 liters of oxygen. 8. Depression. 9. Chronic right bundle branch block. 10. Morbid obesity. 11. Cholecystectomy. ALLERGIES No known drug allergies. Unit #: [id number] #: [id number] Patient: ASHLEY MEJIA HOME MEDICATIONS 1. DuoNeb q.6 hours. 2. Ventolin p.r.n. 3. Tylenol p.r.n. 4. Omnicef 300 mg b.i.d. until 10/19/2016. 5. Lasix was increased to 40 mg b.i.d. 6. Aspirin 81 mg daily. 7. Vancomycin 2 g b.i.d. until 10/19/2016. 8. Prednisone 40 mg daily. 9. Aldactone 25 mg daily. 10. Pravachol 20 mg q.h.s. 11. Singulair 10 mg q.a.m. 12. Breo Ellipta 200/25 one puff daily. FAMILY HISTORY Negative for lung disease. SOCIAL HISTORY The patient lives with his and son. He smoked up to two packs per day of tobacco, but only smokes two cigarettes daily currently. Does not drink alcohol. REVIEW OF SYSTEMS Notable for STANISLAW, COPD, ischemic cardiomyopathy with abovementioned cardiac procedures, essential hypertension, hyperlipidemia, depression, and abovementioned surgeries. All other systems were reviewed and are otherwise negative. PHYSICAL EXAMINATION GENERAL APPEARANCE: Pleasant, morbidly obese, 46-year-old male currently in no acute distress. VITAL SIGNS: Temperature 97.7, pulse 111, respirations 22, blood pressure 152/100, and O2 saturation 91% on 4 liters of oxygen. HEENT: Eyes: PERRLA. Extraocular muscles are intact. Pharynx: Benign. NECK: Supple without adenopathy or thyromegaly. CHEST: Diminished breath sounds, but clear. CARDIAC: Normal S1 and S2 without definite murmur. ABDOMEN: Bowels sounds are present. Well healed scars are noted. There is a mass-like lesion midline around the midline scar. No definite hepatosplenomegaly. EXTREMITIES: Without edema. No splinter hemorrhages noted over the fingernail beds. Patient has a right arm PICC in place. NEUROLOGIC: Patient is awake, alert, and oriented. Cranial nerves are intact. He has equal strength throughout. DIAGNOSTIC STUDIES LABORATORY: Hematocrit 35.2, down from 37.5; white blood count is 15.7 on steroids; and normal platelet count. INR is 1 and PTT is 23.2. SMA-12: BUN 30 and creatinine 2.2, up from a BUN of 18 and creatinine of 0.7 last week; potassium 4.3; calcium 8.2; and albumin is 3. Random vanc. level is pending. Lactic acid is normal. IMAGING: Chest x-ray: Cardiomegaly and mild vascular congestion unchanged from 10/07/2016. CARDIOVASCULAR: EKG shows a sinus tachycardia, rate 105, with a first degree AV block and APCs. Right bundle branch block noted. Right bundle Unit #: [id number] #: [id number] Patient: ASHLEY MEJIA branch block is old. ASSESSMENT 1. Acute kidney injury while on IV vancomycin. 2. Recent community-acquired pneumonia. Two out of two bottles were positive for coag-negative Staph. No vegetations on ABDIRAHMAN. Patient was to take vancomycin and Omnicef until 10/19/2016. 3. Ischemic cardiomyopathy. Ejection fraction 35%. Status post CABG and porcine mitral valve replacement and status post AICD. 4. COPD and obstructive sleep apnea on oxygen. 5. Essential hypertension. 6. Morbid obesity. PLANS 1. Discontinue Aldactone. One small dose of Kayexalate. Patient received a liter of saline in the ER. I will recheck the kidney function in the morning. Obviously, we will discontinue vancomycin. If worsening acute kidney injury, will consult renal. 2. Consult infectious disease. Patient may need daptomycin for a couple of days. 3. DVT prophylaxis. 4. Decrease Lasix. 5. Random vancomycin level is pending as are blood cultures. Dictated by Carine Crisostomo M.D. TAMIKA/lilliana TD: 10/17/2016 05:02 JOB #: [id number] HISTORY AND PHYSICAL Page 1 of 1 X Carine Crisostomo MD X HISTORY AND PHYSICAL
--- NOTE | ~2016-10-16 | CO ---
Unit #: [id number] #: [id number] Patient: ASHLEY MEJIA [id number] [address] [place], [place] [address] [id number] I MR#: [id number] NAME: ASHLEY MEJIA ROOM: 325 Age: 46 Sex: M Admission Date: 10/17/2016 : 1970 Attending Physician: Lul Rice M.D. Primary Care Physician: [facility] Sil[facility] Consultation Date: 10/17/2016 CONSULTATION REPORT REASON FOR CONSULTATION Follow up on patient with [employer] bacteremia. HISTORY OF PRESENT ILLNESS This is a 46-year-old male that is well known to our service who was recently discharged from the hospital on 10/09/2016. At that time, the patient was being treated by our service for coag-negative Staph. bacteremia as well as community-acquired pneumonia. The patient was discharged on IV vancomycin as well as oral Omnicef until 10/19/2016. The patient reports that he was at home and he was getting his IV antibiotics. However, they were having difficulty pulling his blood from his PICC line and does not feel like his labs were drawn twice a week. The specifics of this is unclear to me as I have not spoken with the home health team. The patient did have eventually a BMP drawn which showed an elevated creatinine and potassium and patient was admitted for acute kidney injury and ID was asked to evaluate. In discussion with patient, he denies any fever at home but does report some occasional sweats. He denies any shortness of breath or cough and reports that he is on his home oxygen level of two liters of oxygen. The patient denies any nausea, vomiting, diarrhea. He denies any nonhealing wounds but he does report decreasing urination. The patient has not been placed on any IV antibiotics at this admission. ID was asked to evaluate for further management. PAST MEDICAL HISTORY Please prior dictation. SOCIAL HISTORY The patient lives with others. He has past tobacco abuse does not drink alcohol or any other drug use. ALLERGIES No known allergies. MEDICATION The patient is not currently on any antibiotic therapy. For other medications, please refer to patient's MAR. REVIEW OF SYSTEMS Negative except for as previously mentioned in the history of present illness. PHYSICAL EXAMINATION GENERAL APPEARANCE: This is a no apparent distress male who is resting in the bed comfortably. Unit #: [id number] #: [id number] Patient: ASHLEY MEJIA VITAL SIGNS: Temperature 97.9 with a T-max of 99.4. Pulse 103. Blood pressure 116/76. Respiratory rate 18. HEENT: His pupils are equal. NECK: Supple. CARDIOVASCULAR: S1, S2 with tachycardia. PULMONARY: Diminished in the bases but no significant wheezes or rhonchi noted. ABDOMEN: Positive bowel sounds. Soft and obese but no organomegaly appreciated. EXTREMITIES: No clubbing, cyanosis or edema. DIAGNOSTIC STUDIES LABORATORY: BUN 30, creatinine 2.2, sodium 136, potassium 5.3, chloride 101, CO2 28, bilirubin 0.7, AST 12, ALT 14, lactic acid 0.6. Procalcitonin not done this admission. Vancomycin random level 6.19. WBC count 10.9 which is improved from 15.7 yesterday, hemoglobin 10.3, hematocrit 34.2, platelets 224. 10/16 blood cultures are currently pending. 10/08 blood cultures negative. 10/03 blood cultures 2/2 coag-negative Staph. IMAGIN/26, chest x-ray, please see full report for complete details. It does not show any visible airspace consolidation or pleural effusion and mild vascular congestion without significant change since last done on 10/07. CARDIOVASCULAR: Recent ABDIRAHMAN was negative. IMPRESSION This is a 46-year-old male that is known to our service with recent coag-negative Staph. bacteremia with negative ABDIRAHMAN and community-acquired pneumonia on IV vancomycin and p.o. Omnicef until 10/19/2016. The patient now is admitted with increasing creatine and potassium as well as toxic vancomycin levels. At this time, the patient does not appear that he has ongoing sepsis and will have enough vancomycin in his system without the need for any additional antistaphylococcal coverage. The patient's chest x-ray is without infiltrate and does not show any clinical signs of pneumonia. At this time, we will hold any additional doses of Omnicef. At this time, suspect that he does have antibiotic-associated acute kidney injury but would also check a UA and culture. We will follow up blood culture results. The patient may require a Nephrology consult but we will discuss with Dr. Rafael Solomon. We will check a CBC and BMP today if not already done and we will also check a BMP in the morning. We will have the nursing staff call with any positive blood cultures. Thank you for allowing us to participate in the care of this patient and further recommendations to follow pending patient's clinical course. Dictated by... Leana Brownlee A.P.R.N. for Cuauhtemoc Del Angel/oliver TD: 10/17/2016 09:40 JOB #: [id number] Unit #: [id number] #: [id number] Patient: ASHLEY MEJIA CONSULTATION REPORT Page 1 of 1 X X CONSULTATION REPORT
--- NOTE | ~2016-10-16 | US77 ---
[facility] A Service of [facility] RADIOLOGY TEXT RESULTS PATIENT: ASHLEY MEJIA LOCATION: [facility] 325-01 : 71 UNIT #: [id number] AGE: [address]: Lul Rice MD SEX: M ORDER DR: [id number] [facility] [address]. [place], [place] [address] [id number] I MR#: [id number] Acc #: [id number] NAME: ASHLEY MEJIA : 1970 SEX: M STUDY DATE/TIME: 10/18/2016 15:08 UNIT: A U ROOM: [facility] STUDY DESCRIPTION: US Kidney Bilateral Complete Attending Physician: Lul Rice M.D. Ordering Physician: Selvin Woody M.D. Primary Care Physician: [facility], MEDICAL IMAGING REPORT This report is preliminary unless electronic signature is present EXAM Bilateral renal ultrasound. INDICATION Acute kidney insufficiency. Kidney pain for 2 weeks. Pain with urination. FINDINGS The study is limited by patient's size. The left kidney appears to be about 9.8 cm in length, and no hydronephrosis is visible. Right kidney is about 7.7 cm in length and no hydronephrosis visible. The bladder has collapsed. IMPRESSION The study is limited by patient size. Both kidneys are visualized and no hydronephrosis identified. The right kidney is slightly smaller than the left. The bladder was not distended. Dictated by... Marc Holman M.D. THIS IS AN ELECTRONICALLY VERIFIED REPORT Marc Holman M.D. at 10/19/2016 10:40 PM SUMA/micheline TD: 10/18/2016 18:18 JOB #: [id number] MEDICAL IMAGING REPORT Page 1 of 1 COPY
--- NOTE | ~2016-10-16 | CR72 ---
[facility] A Service of [facility] & [facility] RADIOLOGY TEXT RESULTS PATIENT: ASHLEY MEJIA LOCATION: [facility] 325-01 : [birth year] UNIT #: [id number] AGE: [address]: Lul Rice MD SEX: M ORDER DR: [id number] [facility] [address]. [place], [place] [address] [id number] I MR#: [id number] Acc #: [id number] NAME: ASHLEY MEJIA : 1970 SEX: M STUDY DATE/TIME: 10/18/2016 1:44 UNIT: [address] ROOM: [facility] STUDY DESCRIPTION: CR Chest Single View Portable Attending Physician: Lul Rice M.D. Ordering Physician: Lul Rice M.D. Primary Care Physician: [facility], MEDICAL IMAGING REPORT This report is preliminary unless electronic signature is present EXAM Chest x-ray 10/18/2016 HISTORY Hospital inpatient complaining of left side chest pain and shortness of air tonight. Acute kidney injury. TECHNIQUE AP portable chest x-ray. FINDINGS The examination again shows moderate cardiomegaly and probable mild vascular congestion, radiographically stable since 10/16/2016. Postop changes prior cardiac surgery, including mitral valve replacement. Cardiac pacer/AICD. No airspace consolidation or pleural effusion is visible. IMPRESSION Stable portable chest radiograph, unchanged since 10/16/2016. Dictated by... Kiel Baron M.D. THIS IS AN ELECTRONICALLY VERIFIED REPORT Kiel Baron M.D. at 10/18/2016 6:01 AM MARGUERITE/yoli TD: 10/18/2016 02:55 JOB #: [id number] MEDICAL IMAGING REPORT Page 1 of 1 COPY
--- NOTE | ~2016-10-16 | CR72 ---
[facility] A Service of [facility] RADIOLOGY TEXT RESULTS PATIENT: ASHLEY MEJIA LOCATION: [facility] 325 : [birth year] UNIT #: [id number] AGE: [address]: Lul Rice MD SEX: M ORDER DR: [id number] [facility] [address] [facility]. [place], [place] [address] [id number] I MR#: [id number] Acc #: [id number] NAME: ASHLEY MEJIA : 1970 SEX: M STUDY DATE/TIME: 10/16/2016 23:18 UNIT: [address] ROOM: [facility] STUDY DESCRIPTION: CR Chest Single View Portable Attending Physician: Carine Crisostomo M.D. Ordering Physician: Jose Simpson M.D. [facility] REPORT This report is preliminary unless electronic signature is present EXAM Chest x-ray 10/16/2016 HISTORY 46-year-old male in the ED complaining of continued shortness of air, weakness and chest pain beginning at the time of the prior visit here on 10/03/2016. TECHNIQUE The examination again shows moderate cardiomegaly with pulmonary venous redistribution and diffuse interstitial prominence suggesting mild vascular congestion, unchanged since 10/07/2016. Postop changes prior heart surgery, including valve replacement. PICC in good position. No visible airspace consolidation or pleural effusion. IMPRESSION Cardiomegaly and mild vascular congestion without radiographic change since 10/07/2016. Dictated by... Kiel Baron M.D. THIS IS AN ELECTRONICALLY VERIFIED REPORT Kiel Baron M.D. at 10/17/2016 10:18 PM MARGUERITE/avelina TD: 10/16/2016 23:49 JOB #: [id number] [facility] A Service of [facility] RADIOLOGY TEXT RESULTS PATIENT: ASHLEY MEJIA LOCATION: [facility] 325- : 72 UNIT #: [id number] AGE: [address]: Lul Rice MD SEX: M ORDER DR: MEDICAL IMAGING REPORT Page 1 of 1 COPY
--- NOTE | ~2016-10-16 | DS ---
Unit #: [id number] #: [id number] Patient: ASHLEY MEJIA [id number] [address] [address] [id number] I MR#: [id number] NAME: ASHLEY MEJIA ROOM: 325 Age: 46 Sex: M Admission Date: 10/17/2016 : 1970 Discharge Date: 10/20/2016 Attending Physician: Lul Rice M.D. [facility] DIS[facility]GE SUMMARY REASON FOR ADMISSION Acute kidney injury. HISTORY OF PRESENT ILLNESS/HOSPITAL COURSE The patient is a 46-year-old male recently admitted to [facility] in the early part of September for positive bacteremia with coag negative staph. He was discharged on IV vancomycin as well as Omnicef. [facility] services continued to follow the patient at home. It was noted that he had a creatinine of 2.2, a routine baseline close to 1. Subsequently he was asked to come to [facility] for further evaluation. While here we placed consultation to infectious disease services in regard to overall antibiotic management. They stated that he has completed his course and no further antibiotics are necessary. Repeat blood cultures did not yield any bacterial growth. We also placed consultation to Dr. Kennedy of renal/nephrology services. At the time of discharge there will be no LAILA inhibitor, ARBS or Aldactone. Lasix has been restarted. The patient is to have a repeat BMP in one week post discharge per the directions of Dr. eKnnedy. He is to avoid all NSAIDs at the time of discharge. At this point in time he is medically stable for discharge home. FINAL DISCHARGE DIAGNOSES 1. Acute kidney injury. 2. Recent hospital admission secondary to coag negative staff bacteremia with antibiotic course completed. 3. Obstructive sleep apnea and noncompliance. 4. Ischemic cardiomyopathy. Estimated ejection fraction 35%. 5. Status post atrial implantable cardioverter defibrillator placement. 6. Status post in the past tissue mitral valve replacement. 7. Recent hospital admission for community acquired pneumonia 10/03/2016. 8. Hypertension. 9. Hyperlipidemia. 10. Endstage chronic obstructive pulmonary disease on 2-3 liters of home O2. 11. Major depressive disorder. 12. Morbid obesity. DISCHARGE MEDICATIONS 1. Ventolin 2 puffs q.4 h. p.r.n. 2. Duo-Neb aerosol solution q.6 h. scheduled. Unit #: [id number] #: [id number] Patient: ASHLEY MEJIA 3. Tylenol 650 mg p.o. q.6 h. p.r.n. 4. Brio/Ellipta 200/25 one inhalation daily. 5. Lasix 20 mg p.o. b.i.d., note dosage. 6. Pravastatin 20 mg p.o. at nighttime. 7. Singulair 10 mg p.o. q.a.m. 8. Aspirin 81 mg p.o. daily. DISCHARGE CONDITION Stable. DISCHARGE DISPOSITION Home. PROGNOSIS Overall long-term prognosis for this patient is guarded at best secondary to associated comorbid conditions as well as longstanding history of noncompliance. Chance of readmission significantly elevated. Dictated by... Cuauhtemoc Aguillon/reg TD: 10/21/2016 11:31 JOB #: [id number] DISCHARGE SUMMARY Page 1 of 1 X Lul Rice MD X DISCHARGE SUMMARY
--- NOTE | ~2016-10-16 | BMI ---
[facility] Nutrition Therapy DATE: 10/17/16 Patient: ASHLEY MEJIA Physician: RADHA Address: [address] [facility] Room/Bed: [address] [place] [address], Zip: [place] [address] Admit Date: 10/17/16 Date of : [birth year] Height: 5 4 Weight: 304 138 HIGH BMI NOTE: ANTHROPOMETRICS: HT: 64" WT: 138 KG BMI: 52.2 DIET: HEART HEALTHY RECOMMENDATIONS: 1. CONTINUE CURRENT DIET TO PROMOTE GRADUAL WEIGHT LOSS. Respectfully, LINSEY SORIA RD, LD [employer] and Nutrition[facility] cc: client file
--- NOTE | ~2016-10-16 | CO ---
Unit #: [id number] #: [id number] Patient: ASHLEY CASIANO [id number] [address] [place], [place] [address] [id number] I MR#: [id number] NAME: ASHLEY CASIANO ROOM: 325 Age: 46 Sex: M Admission Date: 10/17/2016 : 1970 Attending Physician: Lul Rice M.D. Primary Care Physician: [facility] Sil[facility] Consultation Date: 10/19/2016 CONSULTATION REPORT REASON FOR CONSULT Renal insufficiency, hyperkalemia. Thank you very much for asking us to see this patient in consultation. HISTORY OF PRESENT ILLNESS Mr. Ashley Casiano is a 46-year-old, male, who was here in the hospital from 10/03/2016 to 10/09/2016, where he had Staph bacteremia, pneumonia, worsening heart failure, was discharged home on Omnicef and vancomycin. The patient apparently had blood work done as an outpatient, noted to have an increased creatinine. Upon presentation here, he had a creatinine up to 2.2 on 10/16/2016, 1.9, then 1.8, and 1.8. He had a potassium that was up to 5.3 today. Because of this, I was asked to see the patient. The patient was noted on 10/09/2016 to have a creatinine of 0.7. After his discharge, he also had his Lasix went up from 20 mg a day up to 40 mg b.i.d. He also has been taking Aleve at least 2 a day over the last few months including up until the time of presentation here. He denies any chest pain. He had some chronic shortness of breath. No nausea, vomiting, or diarrhea. No skin rashes. PAST MEDICAL HISTORY History of cardiomyopathy with decreased EF around 35%, history of COPD, history of AICD, history of prosthetic mitral valve, history of obstructive sleep apnea, history of obesity, history of hypertension, history of hyperlipidemia, history of depression, history of noncompliance. ALLERGIES No known drug allergies. SOCIAL HISTORY He is . Positive smoker. No alcohol. FAMILY HISTORY Noncontributory. MEDICATIONS When he was discharged include vancomycin, inhalers, Omnicef, Lasix 40 mg b.i.d., Pravachol, 81 mg of aspirin, Aldactone 25 mg. He was on prednisone, which was discontinued. REVIEW OF SYSTEMS As mentioned in the HPI. Denies any fever or chills. Does have intermittent headaches, none now. No sinus problems. No cough or hemoptysis. No neck pain or neck stiffness. No severe abdominal pain. Unit #: [id number] #: [id number] Patient: ASHLEY CASIANO No skin rashes as mentioned above. Rest is as in the HPI. PHYSICAL EXAMINATION GENERAL: He is alert and oriented. VITAL SIGNS: Temperature is 98.7, pulse 87 to 109, blood pressure 90 to 123 over 55 to 71. He has 1240 plus in and 2500 plus out. HEENT: Normocephalic and atraumatic. Pupils are equal, round, and reactive to light. Extraocular muscles are intact. Hearing appears to be normal. Mouth is clear. No erythema. No exudate. NECK: Supple. No JVD. No adenopathy. CARDIAC: Regular rhythm without a rub. No S3 or S4. LUNGS: Have a few wheezes bilaterally. No rales are appreciated. ABDOMEN: Very obese. Bowel sounds positive. Nontender, soft. No masses felt, but limited exam. EXTREMITIES: He has no lower extremity swelling. His pulses are intact in upper and lower extremities. JOINTS: No joint pain or joint swelling. SKIN: No acute rashes. NEUROLOGIC: Appears to be intact motor and sensory grossly. : Deferred. DIAGNOSTIC STUDIES IMAGING STUDIES: He had a renal ultrasound that showed no hydronephrosis. Chest x-ray showed possible increased volume. LABORATORY RESULTS: Sodium is 138, potassium 5.3, chloride is 101, bicarb is 28, BUN and creatinine are 27 and 1.8, glucose of 98. Again, when he presented on 10/16/2016, he had a creatinine of 2.2. Calcium is 8.0, magnesium is 2.0. White count 10,800, hemoglobin is 9.5, platelets 211,000. UA shows a specific gravity of 1.01, no hematuria, no proteinuria, 5 to 10 wbc's. Blood culture negative. ASSESSMENT AND PLAN 1. Acute kidney injury. This gentleman has increased creatinine upon presentation, although slowly improving now. Most likely, it is a combination of vancomycin toxicity as well as on top of being on Aleve at home probably as well as increased dose of diuretics. All contributing to his acute renal insufficiency is slowly improving. It should hopefully continue to improve. His renal ultrasound without any obstruction. Kidneys were little small, I am not sure what is the size if that is really attributing or not, but again, no obstruction. His urinalysis showed no hematuria or proteinuria. So, I doubt if he has any type of active glomerulonephritis or post-infectious GN, etc. In reality, I am not going to do any further workup on him at this time. We will restart him on a little bit of Lasix 20 mg b.i.d. tonight. Check labs in the morning, and if everything is stable or better, then probably home tomorrow with a BMP in 1 week and follow up in 3 to 4 weeks. 2. Hyperkalemia secondary to renal insufficiency, on Aldactone. Aldactone has been stopped, which probably stay off that as well as LAILA inhibitors and angiotensin receptor blockers right now. We will put him on a 2 g potassium diet and check in a.m. 3. Cardiomyopathy, decreased ejection fraction, automatic implantable cardioverter-defibrillator, mitral valve replacement. 4. Staph bacteremia, treated. 5. Chronic obstructive pulmonary disease, on home O2, severe. 6. Hypertension. Unit #: [id number] #: [id number] Patient: ASHLEY CASIANO Dictated by.Juan C Kennedy M.D. RACHAEL/bryan TD: 10/19/2016 18:54 JOB #: [id number] CONSULTATION REPORT Page 1 of 1 X Leandro Kennedy MD X CONSULTATION REPORT
[~2016-10-16 23:06] MED LIST changes: +ACETAMINOPHEN650 M1 PO; +ASPIRIN81 M2 PO; +COMBIVENT U/D3 M2 INH; +OMNICEF300 MG PO; +PREDNISONE PO; +VANCOCIN HCL2 GM IV
[2016-10-17 00:05] LABS: BASOPHIL# 0.1 X10e3 (0-0.3); BASOPHIL% 0.8 % (0-2.5); DIFF IND YES; EOSINOPHIL# 0.2 X10e3 (0-0.7); EOSINOPHIL% 1.6 % (0.0-7.0); HEMATOCRIT 35.2 % (38.0-50.0); HEMOGLOBIN 10.7 gm/dL (13.0-16.0); LYMPHOCYTE# 1.1 X10e3 (1.0-3.5); LYMPHOCYTE% 6.7 % (17.0-45.0); MEAN CELL VOLUME 92.5 FL (83-96); MEAN CORPUSCULAR HEMOGLOBIN 28.2 PG (28-34); MEAN CORPUSCULAR HGB CONC 30.5 g/dL (30-36); MEAN PLATELET VOLUME 8.4 FL (6.5-11.5); MONOCYTE# 1.8 X10e3 (0-1.0); MONOCYTE% 11.2 % (3.0-12.0); NEUTROPHIL# 12.5 X10e3 (1.5-7.1); NEUTROPHIL% 79.7 % (40-75); PLATELET COUNT 234 X10e3 (140-420); RED BLOOD COUNT 3.81 X10e (3.90-5.60); RED CELL DISTRIBUTION WIDTH 16.1 % (11.0-15.5); WHITE BLOOD COUNT 15.7 X10e3 (4.0-10.5)
[2016-10-17 00:11] LABS: PARTIAL THROMBOPLASTIN TIME 23.2 SECONDS (23.5-31.3); PROTHROMBIN TIME (PATIENT) 10.7 SECONDS (9.6-11.5)
[2016-10-17 00:18] LABS: BILIRUBIN, DIRECT 0.1 mg/dL (0.0-0.2); BILIRUBIN,INDIRECT 0.6 mg/dL (0.0-0.9); BILIRUBIN,TOTAL 0.7 mg/dL (0.2-2.0); BUN/CREATININE RATIO 13.63; CALCIUM SERUM 8.2 mg/dL (8.4-10.2); CREATININE SERUM 2.2 mg/dL (0.6-1.4); GLOM FILT RATE Estimated 34.9 mL/min (>60); POTASSIUM 5.3 mmol/L (3.5-5.1); PROTEIN TOTAL SERUM 6.8 g/dL (6.0-8.3)
[2016-10-17 00:48] LABS: ANISOCYTOSIS MOD; PLATELET ESTIMATE NORMAL (NORMAL)
[2016-10-17 07:26] LABS: HEMATOCRIT 34.2 % (38.0-50.0); HEMOGLOBIN 10.3 gm/dL (13.0-16.0); MEAN CELL VOLUME 93.1 FL (83-96); MEAN CORPUSCULAR HGB CONC 30.1 g/dL (30-36); MEAN PLATELET VOLUME 7.8 FL (6.5-11.5); RED BLOOD COUNT 3.68 X10e (3.90-5.60); WHITE BLOOD COUNT 10.9 X10e3 (4.0-10.5)
[2016-10-17 09:49] LABS: BUN/CREATININE RATIO 16.84; CREATININE SERUM 1.9 mg/dL (0.6-1.4); GLOM FILT RATE Estimated 41.7 mL/min (>60); POTASSIUM 4.9 mmol/L (3.5-5.1)
[2016-10-17 13:23] LABS: URINE APPEARANCE CLEAR; URINE BILIRUBIN NEG (NEG); URINE BLOOD TRACE (NEG); URINE COLOR YELLOW; URINE GLUCOSE NEG (NEG); URINE KETONE NEG (NEG); URINE LEUKOCYTE ESTERASE 1+ (NEG); URINE NITRATE NEG (NEG); URINE PH 5.5 (5-8); URINE PROTEIN NEG (NEG); URINE UROBILINOGEN 0.2 MG/DL (NEG)
[2016-10-17 13:25] LABS: URBCS1 AUWI 0-2 /[HPF] (0-2); URINE BACTERIA AUWI NEG (NEGATIVE); URINE SQUAMOUS EPITHELIAL CELL NONE SEEN /[HPF]
[2016-10-18 06:18] LABS: BUN/CREATININE RATIO 16.11; CALCIUM SERUM 7.7 mg/dL (8.4-10.2); CREATININE SERUM 1.8 mg/dL (0.6-1.4); GLOM FILT RATE Estimated 44.5 mL/min (>60); POTASSIUM 4.9 mmol/L (3.5-5.1)
[2016-10-19 05:13] LABS: HEMATOCRIT 30.8 % (38.0-50.0); HEMOGLOBIN 9.5 gm/dL (13.0-16.0); MEAN CELL VOLUME 92.4 FL (83-96); MEAN CORPUSCULAR HEMOGLOBIN 28.5 PG (28-34); MEAN CORPUSCULAR HGB CONC 30.8 g/dL (30-36); MEAN PLATELET VOLUME 8.2 FL (6.5-11.5); RED BLOOD COUNT 3.34 X10e (3.90-5.60); RED CELL DISTRIBUTION WIDTH 15.8 % (11.0-15.5); WHITE BLOOD COUNT 10.8 X10e3 (4.0-10.5)
[2016-10-19 06:16] LABS: CREATININE SERUM 1.8 mg/dL (0.6-1.4); GLOM FILT RATE Estimated 44.5 mL/min (>60); POTASSIUM 5.3 mmol/L (3.5-5.1)
[2016-10-20 06:12] LABS: HEMOGLOBIN 9.6 gm/dL (13.0-16.0); MEAN CELL VOLUME 91.9 FL (83-96); MEAN CORPUSCULAR HEMOGLOBIN 28.3 PG (28-34); MEAN CORPUSCULAR HGB CONC 30.8 g/dL (30-36); MEAN PLATELET VOLUME 7.8 FL (6.5-11.5); RED BLOOD COUNT 3.37 X10e (3.90-5.60); RED CELL DISTRIBUTION WIDTH 15.8 % (11.0-15.5); WHITE BLOOD COUNT 9.8 X10e3 (4.0-10.5)
[2016-10-20 06:41] LABS: CALCIUM SERUM 8.2 mg/dL (8.4-10.2); CREATININE SERUM 1.5 mg/dL (0.6-1.4); GLOM FILT RATE Estimated 55.5 mL/min (>60); MAGNESIUM 1.9 mg/dL (1.6-3.0); PHOSPHOROUS 4.1 mg/dL (2.5-4.6); POTASSIUM 5.2 mmol/L (3.5-5.1)
== END 2016-10-20 19:05 | disposition home or self-care (01) | DRG 684 ==
LOC: CED 23:06 → CEDOF 10-17 02:25 → C3A PCU 10-17 03:31
PROVIDERS: Emergency Medicine; Family Medicine; Internal Medicine; Internal Medicine Nephrology; Physician Assistant Medical
DX: N17.9 Acute kidney failure, unspecified (principal); E87.5 Hyperkalemia; I10 Essential (primary) hypertension; G47.33 Obstructive sleep apnea (adult) (pediatric); I25.5 Ischemic cardiomyopathy; Z95.810 Presence of automatic (implantable) cardiac defibrillator; E78.5 Hyperlipidemia, unspecified; J44.9 Chronic obstructive pulmonary disease, unspecified; F32.9 Major depressive disorder, single episode, unspecified; E66.01 Morbid (severe) obesity due to excess calories; I45.10 Unspecified right bundle-branch block; Z79.82 Long term (current) use of aspirin; B95.8 Unspecified staphylococcus as the cause of diseases classified elsewhere
CPT/HCPCS: 71010; 76770; 80048; 80076; 80202; 81003; 83605; 83735; 83880; 84100; 85025; 85027; 85610; 85730; 87040; 87086; 93005; 94640; 94760; 96360; 99285; J1650; J1940; J2920

== ENCOUNTER 2016-11-18 18:15 | Inpatient (IN) | payer OTHER ==
--- NOTE | ~2016-11-18 | DS ---
Unit #: [id number] #: [id number] Patient: ASHLEY MEJIA [id number] [address] [address] [id number] I MR#: [id number] NAME: ASHLEY MEJIA ROOM: 574 Age: 46 Sex: M Admission Date: 11/18/2016 : 1970 Discharge Date: 11/22/2016 Attending Physician: Darius Abebe M.D. [facility] DISCHARGE SUMMARY DISCHARGE DIAGNOSES 1. Acute on chronic hypoxic and hypercapnic respiratory failure. 2. Chronic obstructive pulmonary disease exacerbation. 3. Morbid obesity. 4. Depression and anxiety. 5. Viral pneumonia. 6. Chronic systolic heart failure. HOSPITAL COURSE The patient is a 46-year-old male with chronic systolic heart failure and chronic hypoxic and hypercapnic respiratory failure, who presents with worsening shortness of breath. In the emergency department, he was found to have oxygen saturations in the 80s, was started on BiPAP. Given his need for BiPAP to maintain ventilation, he was initially admitted to the ICU and started on IV antibiotics for pneumonia. Ultimately, the patient's procalcitonin values were negative, improved rapidly. It was felt that he was not suffering from a bacterial/healthcare-associated pneumonia and antibiotics were stopped. The patient's respiratory status quickly improved to baseline on treatments for COPD exacerbation and the patient was subsequently transferred to the floor. The patient was seen in consultation by psychiatry as the patient had a complaint of anxiety and depression, was started on medications. The patient's (1) need for oxygen also resolved quickly and at the time of discharge is saturating 100% on his home does of O2. Given resolution of his extra oxygen needs, the patient is being discharged home now. DISCHARGE MEDICATIONS 1. Albuterol two puffs q.6 hours p.r.n. 2. Ipratropium bromide/albuterol q.6 hours. 3. Prednisone taper. 4. Amiodarone 200 mg p.o. b.i.d. 5. Sertraline 50 mg p.o. nightly. 6. Incruse Ellipta one puff daily. 7. Vistaril 25 mg p.o. t.i.d. 8. Coreg 3.125 mg p.o. b.i.d. 9. Lasix 20 mg p.o. b.i.d. 10. Pravachol 20 mg p.o. nightly. 11. Lisinopril 10 mg daily. 12. Singulair 10 mg daily. Unit #: [id number] #: [id number] Patient: ASHLEY MEJIA 13. Spironolactone 25 mg p.o. daily. FOLLOWUP 1. The patient is to follow up with Dr. Joseph, February 14, 2017 at 11:30 a.m. 2. The patient is to follow up with Dr. Cabrera in two to three weeks. Dictated by... Cuauhtemoc Aviles/yudy TD: 11/25/2016 08:57 JOB #: [id number] DISCHARGE SUMMARY Page 1 of 1 X Darius Abebe MD X DISCHARGE SUMMARY
--- NOTE | ~2016-11-18 | CR72 ---
[facility] A Service of [facility] & [facility] RADIOLOGY TEXT RESULTS PATIENT: ASHLEY MEJIA LOCATION: [address] : 71 UNIT #: [id number] AGE: [address]: Darius Abebe MD SEX: M ORDER DR: [id number] [facility] [address] [facility]. [place], [place] [address] [id number] I MR#: [id number] Acc #: [id number] NAME: ASHLEY MEJIA : 1970 SEX: M STUDY DATE/TIME: 11/18/2016 18:35 UNIT: [facility] ROOM: [facility] STUDY DESCRIPTION: CR Chest Single View Portable Attending Physician: Carine Crisostomo M.D. Ordering Physician: Magnolia Delarosa M.D. Primary Care Physician: [facility] MEDICAL IMAGING REPORT This report is preliminary unless electronic signature is present EXAM Portable chest, 11/18/2016 HISTORY Shortness of breath chest pain, cough, chest congestion for 2 days. FINDINGS The heart is enlarged but stable compared with 10/18/2016 status post median sternotomy. Cardiac pacemaker is unchanged. There has been a decrease in pulmonary edema. There are no pleural effusions. No pneumothorax. IMPRESSION Cardiomegaly with a decrease in pulmonary edema compared with 10/18/2016. Dictated by... Chato Holley M.D. THIS IS AN ELECTRONICALLY VERIFIED REPORT Chato Holley M.D. at 11/19/2016 10:41 AM JANET/miryam TD: 11/19/2016 04:44 JOB #: [id number] MEDICAL IMAGING REPORT Page 1 of 1 COPY
--- NOTE | ~2016-11-18 | EKG ---
PATIENT: ASHLEY MEJIA UNIT #: [id number] Ventricular Rate: 106 BPM Atrial Rate: 106 BPM P-R Interval: 192 ms QRS Duration: 136 ms Q-T Interval: 338 ms QTC Calculation(Bezet): 448 ms P [place]: 58 degrees Calculated R [place]: 79 degrees Calculated T [place]: 40 degrees Diagnosis Line: Sinus tachycardia Diagnosis Line: Possible Left atrial enlargement Diagnosis Line: Right bundle branch block Diagnosis Line: Septal infarct (cited on or before 18-NOV-2016) Diagnosis Line: Abnormal ECG Diagnosis Line: When compared with ECG of 16-OCT-2016 22:38, Diagnosis Line: Questionable change in initial forces of Septal Diagnosis Line: leads Diagnosis Line: Confirmed by GRACIELA CHICAS MD ([id number]) on Diagnosis Line: 11/19/2016 3:17:48 PM INTERPRETING MD: AVIVA CAR
--- NOTE | ~2016-11-18 | CR72 ---
[facility] A Service of [facility] & [facility] RADIOLOGY TEXT RESULTS PATIENT: ASHLEY MEIJA LOCATION: [facility] 574-01 : [birth year] UNIT #: [id number] AGE: [address]: Darius Abebe MD SEX: M ORDER DR: [id number] [facility] [address] [place], [place] [address] [id number] MR#: [id number] Acc #: [id number] NAME: ASHLEY MEJIA : 1970 SEX: M STUDY DATE/TIME: 11/19/2016 3:14 UNIT: [facility] ROOM: [facility] STUDY DESCRIPTION: CR Chest Single View Portable Attending Physician: Darius Abebe M.D. Ordering Physician: Carine Crisostomo M.D. Primary Care Physician: [facility] MEDICAL IMAGING REPORT This report is preliminary unless electronic signature is present EXAM Portable chest. INDICATION Respiratory failure. PROCEDURE Frontal view chest. COMPARISON 11/18/2016 at 1835 hours. FINDINGS Cardiomegaly is unchanged. No new dense consolidation. No pneumothorax. IMPRESSION Stable Dictated by... Pete Martinez M.D. THIS IS AN ELECTRONICALLY VERIFIED REPORT Pete Martinez M.D. at 11/19/2016 9:52 PM TRISTAND/jessica TD: 11/19/2016 09:03 JOB #: [id number] MEDICAL IMAGING REPORT Page 1 of 1 COPY
--- NOTE | ~2016-11-18 | HP ---
Unit #: [id number] #: [id number] Patient: ASHLEY MEJIA [id number] [address] [address] [id number] I MR#: [id number] NAME: ASHLEY MEJIA ROOM: 87674 Age: 46 Sex: M Admission Date: 11/18/2016 : 1970 Attending Physician: Carine Crisostomo M.D. Primary Care Physician: [facility] HISTORY AND PHYSICAL CHIEF COMPLAINT Acute on chronic hypoxic/hypercapnic respiratory failure and COPD exacerbation. HISTORY This pleasant 46-year-old male with ischemic cardiomyopathy, O2 dependent COPD, is admitted for respiratory failure. The patient was last admitted to this facility about three weeks ago for vancomycin-induced acute kidney injury. He states that he was well until two days prior to admission when he developed increasing shortness of breath along with increasing wheezing, and a deep cough productive of purulent sputum along with diaphoresis. EMS was called and the patient's O2 sat was found to be low. He was placed on CPAP initially which was then changed to BiPAP in this emergency department. His chest x-ray is improved. However, given concerns of possible occult pneumonia, he was treated with Zosyn, vancomycin and tobramycin, and currently is feeling better on BiPAP. PAST MEDICAL HISTORY 1. Obstructive sleep apnea. 2. Ischemic cardiomyopathy, status post two vessel CABG in 2010. Ejection fraction 35%. Patient is status post tissue mitral valve replacement and is status post AICD placement. 3. Admission for community-acquired pneumonia last month. However, two out of two blood cultures were positive for coag-negative Staph. ABDIRAHMAN was negative for vegetation. The patient was placed on two weeks of vancomycin but did develop vancomycin-induced acute kidney injury requiring admission three weeks ago. 4. Essential hypertension. 5. Hyperlipidemia. 6. COPD on 2.5 L of oxygen. 7. Depression. 8. Chronic right bundle branch block. 9. Laparoscopic cholecystectomy for chronic cholecystitis 06/2016. 10. Morbid obesity. ALLERGIES No known drug allergies. HOME MEDICATIONS His discharge summary three weeks ago lists: 1. Ventolin two puffs q.4 hours as needed. 2. Duo-Nebs q.6 hours scheduled. Unit #: [id number] #: [id number] Patient: ASHLEY MEJIA 3. Tylenol p.r.n. 4. Breo Ellipta 200/25, one puff daily. 5. Lasix 20 mg b.i.d. 6. Pravachol 20 mg q. h.s. 7. Singulair 10 mg q. a.m. 8. Aspirin 81 mg daily. FAMILY HISTORY Negative for lung disease. SOCIAL HISTORY The patient live with his and son. He smoked up two packs per day of tobacco but cut down over the past year to a few cigarettes daily. Does not drink alcohol. REVIEW OF SYSTEMS Notable for shortness of breath, wheezing, productive cough, diaphoresis, STANISLAW, COPD, ischemic cardiomyopathy with above mentioned cardiac procedures, hypertension, hyperlipidemia, depression and cholecystectomy. All other systems were reviewed and are otherwise negative. PHYSICAL EXAMINATION GENERAL APPEARANCE: Pleasant, morbidly obese 46-year-old male who currently is in no acute distress on BiPAP. VITAL SIGNS: Temperature 99.3, pulse 105, respirations 26, blood pressure 125/84. O2 saturation is 100% on BiPAP. FIO2 60%. HEENT: Eyes PERRLA. Extraocular muscles are intact. Pharynx is benign. NECK: Supple without adenopathy or thyromegaly. CHEST: Diminished breath sounds but otherwise fairly clear. CARDIAC: Normal S1 and S2 without definite murmur. ABDOMEN: Bowel sounds are present. No hepatosplenomegaly or tenderness. There is a somewhat hardened area midline. EXTREMITIES: Without edema. Pedal pulses are markedly diminished. NEUROLOGIC: The patient is awake, alert, oriented. Cranial nerves are intact. Equal strength throughout. DIAGNOSTIC STUDIES LABORATORY: Hematocrit is 40.9, normal white count and platelet count. SMA-12 - glucose 111, chloride 92, CO2 34, BNP 157 which is improved from last admission. Cardiac markers negative. ABG - 7.36, pCO2 67, pO2 96, O2 saturation 95% on an FIO2 of 60%, rate of 20 and pressures of 16/6. IMAGING: Chest x-ray - improved congestive heart failure. CARDIOVASCULAR: EKG - sinus tachycardia, rate 106 with a right bundle branch block which was noted previously. ASSESSMENT 1. Acute on chronic hypoxic/hypercapnic respiratory failure secondary to chronic obstructive pulmonary disease exacerbation, likely due to bronchitis as opposed to occult hospital-acquired pneumonia. 2. Obstructive sleep apnea. 3. Chronic obstructive pulmonary disease, on home oxygen. Unit #: [id number] #: [id number] Patient: ASHLEY MEJIA 4. Ischemic cardiomyopathy, ejection fraction 35%, status post automatic implantable cardioverter defibrillator and status post tissue valve mitral valve replacement. 5. Essential hypertension. 6. Morbid obesity. 7. Tobacco use. 8. History of vancomycin-induced acute kidney injury three weeks ago. PLANS 1. Continue BiPAP, will give routine Duo-Nebs, placed on antibiotics and steroids. Patient did receive one dose of vancomycin in the ER. I will hold further vancomycin at this time. Will place on doxycycline and cefepime pending blood an sputum cultures and repeat chest x-ray in the morning. Will likely be able to de-escalate antibiotics depending on repeat chest x-ray and cultures. 2. Pulmonary consultation. 3. DVT prophylaxis. 4. Smoking cessation counseling. Critical care time spent in evaluating this patient was 35 minutes. Dictated by Cuauhtemoc Hector/haley TD: 11/18/2016 22:15 JOB #: [id number] HISTORY AND PHYSICAL Page 1 of 1 X Carine Crisostomo MD X HISTORY AND PHYSICAL
--- NOTE | ~2016-11-18 | CO ---
Unit #: [id number] #: [id number] Patient: ASHLEY CASIANO [id number] [facility] [address] [place], [place] [address] [id number] I MR#: [id number] NAME: ASHLEY CASIANO ROOM: 574 Age: 46 Sex: M Admission Date: 11/18/2016 : 1970 Attending Physician: Darius Abebe M.D. [facility] Consultation Date: 11/22/2016 CONSULTATION REPORT REASON FOR CONSULTATION Followup. DISCUSSION Mr. Ashley Casiano is a 46-year-old moderately obese white male seen in room 574, bed 1 on 5C at [facility] on November 22, 2016. Patient is reporting still having problems with sleep, anxiety, mood lability but denied any thoughts of harming self or others or any psychotic symptoms. Patient's vital signs: 98, 93, 20, 133/52, oxygen saturation 98%. Patient reports his breathing is getting better but patient will be going to cardiac rehab. Patient was cooperative. No agitation. Patient is currently on Zoloft 50 mg at bedtime, Vistaril 25 mg three times a day, Xanax 0.5 q.4 p.r.n. for anxiety. REVIEW OF SYSTEMS Complete review of systems is unremarkable except as mentioned above. MENTAL STATUS EXAMINATION Vital signs: Please see above. General appearance: The patient is moderately obese, dressed casually, lying comfortably in bed. Attention span and concentration fair. Speech is slow in volume and rate. Oriented in time, place, and person. Mood and affect: Sad, dysphoric, flat. Thought process: Coherent. Thought content: The patient denied any thoughts of harming self or others but somewhat guarded. Recent and remote memory fair. Language intact. Fund of knowledge fair to slightly impaired. Insight and judgment fair to slightly impaired. DIAGNOSES PSYCHIATRIC: Major depressive disorder, recurrent, severe, F33.0. Anxiety disorder, not otherwise specified, F40.01. ASSESSMENT AND PLAN 1. Supportive psychotherapy and psychoeducation provided to patient. 2. Educated about benefits and side effects of medication and course and prognosis of illness. 3. Advised to continue with current combination of medication. If needed, consider further adjustment of medication. Please feel free to call if any questions, . Dictated by... Jeffrey Beltran M.D. Unit #: [id number] #: [id number] Patient: ASHLEY CASIANO FLORENCE/yudy TD: 11/24/2016 10:29 JOB #: [id number] CONSULTATION REPORT Page 1 of 1 X Jeffrey Beltran MD X CONSULTATION REPORT
--- NOTE | ~2016-11-18 | CO ---
Unit #: [id number] #: [id number] Patient: ASHLEY MEJIA [id number] [address] [address] [id number] I MR#: [id number] NAME: ASHLEY MEJIA ROOM: 574 Age: 46 Sex: M Admission Date: 11/18/2016 : 1970 Attending Physician: Darius Abebe M.D. [facility] Consultation Date: 11/21/2016 CONSULTATION REPORT REASON FOR CONSULTATION Depression, anxiety. HISTORY OF PRESENT ILLNESS Mr. Ashley Mejia is a 46-year-old male seen in room 574, bed 1 on November 21, 2016. Patient was admitted on November 18 with acute on chronic hypercapnic respiratory failure and COPD exacerbation. Patient has a history of obstructive sleep apnea, history of cardiomyopathy, depression. Patient seems somewhat anxious, nervous, sad, depressed, withdrawn, flat, sad, dysphoric. Patient denied any thoughts of harming self or others but reported severe anxiety. Denied any psychotic symptoms. No history of any substance abuse. PAST PSYCHIATRIC HISTORY Remarkable for history of depression. No history of any suicide attempt or any inpatient treatment. MEDICAL HISTORY 1. Morbid obesity. 2. Obstructive sleep apnea. 3. Ischemic cardiomyopathy. 4. Essential hypertension. 5. Hyperlipidemia. 6. COPD on 2.5 L of oxygen. 7. Depression. 8. Chronic right bundle branch block. 9. Laparoscopic cholecystectomy. ALLERGIES No known drug allergies. MEDICATIONS 1. Ventolin. 2. DuoNeb. 3. Tylenol. 4. Lasix. 5. Pravachol. 6. Singulair. 7. Aspirin. FAMILY HISTORY/SOCIAL HISTORY Poor support system. No history of abuse. No history of an substance abuse. Unit #: [id number] #: [id number] Patient: ASHLEY MEJIA REVIEW OF SYSTEMS Complete review of systems unremarkable. MENTAL STATUS EXAMINATION Vital signs: 98, 100, 20, 129/81, oxygen saturation 97%. General appearance: Patient dressed casually, sitting comfortably in chair, has a gait belt, dressed in hospital attire. Attention span and concentration poor. Speech slow. Oriented in place and person. Mood and affect sad, depressed. Thought process coherent. Thought content: Patient denied any thoughts of harming self or others but guarded, paranoid, severe anxiety. Recent and remote memory fair to slightly impaired. Language fair. Fund of knowledge fair. Insight and judgment fair to slightly impaired. DIAGNOSES PSYCHIATRIC: Major depressive disorder, recurrent, severe, F33.0. Anxiety disorder, not otherwise specified, F40.01. ASSESSMENT AND PLAN 1. Supportive psychotherapy and psychoeducation provided to patient. 2. Educated about benefits and side effects of medication and course and prognosis of illness. 3. Advise at this time to start patient on Zoloft 50 mg at bedtime for depression, Vistaril 25 mg three times a day for anxiety, Xanax 0.5 mg q.4 hours p.r.n. for severe anxiety. Please feel free to call if any questions, . Dictated by... Cuauhtemoc Jorgensen/yudy TD: 11/22/2016 09:25 JOB #: [id number] CONSULTATION REPORT Page 1 of 1 X Jeffrey Beltran MD CONSULTATION REPORT
--- NOTE | ~2016-11-18 | CR71 ---
[facility] A Service of [facility] & [facility] RADIOLOGY TEXT RESULTS PATIENT: ASHLEY MEJIA LOCATION: [facility] 574-01 : [birth year] UNIT #: [id number] AGE: [address]: Darius Abebe MD SEX: M ORDER DR: [id number] [facility] [address] [place], [place] [address] [id number] I MR#: [id number] Acc #: [id number] NAME: ASHLEY MEJIA : 1970 SEX: M STUDY DATE/TIME: 11/21/2016 5:57 UNIT: [facility] ROOM: [facility] STUDY DESCRIPTION: CR Chest Single View Attending Physician: Darius Abebe M.D. Ordering Physician: Rufino Cabrera M.D. Primary Care Physician: [facility] MEDICAL IMAGING REPORT This report is preliminary unless electronic signature is present EXAM Portable chest, 11/21 INDICATION Respiratory failure, COPD exacerbation. FINDINGS AP portable views of the chest are compared with 11/19/2016. Cardiomegaly is stable status post valve repair. There is some central vascular congestion, and there is a small left pleural effusion. No pneumothorax identified. Dictated by... Derick Crowell Jr., M.D. THIS IS AN ELECTRONICALLY VERIFIED REPORT Derick Crowell Jr., M.D. at 11/22/2016 6:06 AM LEDA/kingsley TD: 11/21/2016 10:39 JOB #: [id number] MEDICAL IMAGING REPORT Page 1 of 1 COPY
--- NOTE | ~2016-11-18 | CO ---
Unit #: [id number] #: [id number] Patient: ASHLEY MEJIA [id number] [facility]. [address] [place], [place] [address] [id number] I MR#: [id number] NAME: ASHLEY MEJIA ROOM: 574 Age: 46 Sex: M Admission Date: 11/18/2016 : 1970 Attending Physician: Darius Abebe M.D. Primary Care Physician: [facility] Consultation Date: 11/22/2016 CONSULTATION REPORT REASON FOR CONSULTATION Ventricular tachycardia. HISTORY OF PRESENT ILLNESS This is a 46-year-old white male who is known to our group and has a history of coronary artery bypass graft with tissue aortic valve replacement in 2010. He has significant cardiomyopathy where his ejection fraction was 20% to 25% with chronic systolic heart failure. He has an AICD implanted. The patient is admitted on 11/18/2016 with acute hypoxic respiratory failure with COPD exacerbation. He most likely has viral pneumonia and was in the Intensive Care Unit on BiPAP for awhile. He has been transferred to the floor. During the course of his stay, he developed periods of nonsustained ventricular tachycardia up to 10-12 beats. The patient has had no device checks since 2014 and he denies discharge of his device. He has improved shortness of breath but no cough or fever. Previous two pillow orthopnea has resolved. On admission, the patient says that he was drinking up to eight large cups of water a day and drinking occasional soda. He reports taking his medications. His electrolytes are within normal limits. PAST MEDICAL HISTORY 1. 2D echocardiogram 10/08/2016 shows an ejection fraction equal to 30% to 35% with moderately dilated left atrium. No intraatrial shunt or bubble study. Mild to moderate mitral regurgitation and mild to moderate pulmonic valvular regurgitation. Moderate tricuspid regurgitation. There is moderate to severe diffuse atherosclerosis of the aorta. 2. Coronary artery bypass graft x2 with tissue mitral valve replacement 11/2010, at [facility]. 3. Lexiscan Cardiolite stress test 02/16/2013, shows no obvious stress-induced ischemia. Ejection fraction of 38%. Suspicion for moderate ischemic cardiomyopathy. 4. Chronic systolic heart failure. 5. Hypertension. 6. Hyperlipidemia. 7. Obesity. 8. Nonsustained ventricular tachycardia. 9. Ischemic cardiomyopathy, status post [employer] AICD implantation. 10. Right bundle branch block. 11. Obstructive sleep apnea. 12. COPD. 13. Asthma. 14. Morbid obesity. 15. Active smoker. Unit #: [id number] #: [id number] Patient: ASHLEY MEJIA PAST SURGICAL HISTORY 1. Coronary artery bypass graft x2 with tissue mitral valve replacement 11/2010. 2. AICD implantation. 3. Laparoscopic cholecystectomy with laparoscopic ventral hernia repair. SOCIAL HISTORY The patient is disabled. He smokes a pack of cigarettes daily. Mostly uses a wheelchair. Lives a sedentary lifestyle. He denies illicit drug and alcohol use. FAMILY HISTORY Father from a myocardial infarction in his 40s. ALLERGIES No known drug allergies. HOME MEDICATIONS 1. Incruse Ellipta 62.5 mcg inhaled daily. 2. Aldactone 25 mg daily. 3. Carvedilol 3.125 mg b.i.d. 4. Lisinopril 10 mg daily. 5. Pravastatin 20 mg q. h.s. 6. Furosemide 20 mg b.i.d. 7. Combivent mini nebs q.6 hours. 8. Albuterol two puffs q.6 hours. 9. Singulair 10 mg daily. REVIEW OF SYSTEMS CONSTITUTIONAL: Has resolved subjective fever. No chills. No weakness or fatigue. HEENT: No headache, hearing or visual changes, no difficulty with swallowing. No dizziness. CARDIOVASCULAR: Has no symptoms of angina. Denies palpitations. No AICD discharge. On admission, positive for two pillow orthopnea that has resolved. No syncope or near syncope. RESPIRATORY: Has resolving dyspnea and occasional nonproductive cough. No hemoptysis. GASTROINTESTINAL: No current abdominal pain, nausea or vomiting. No constipation or melena. EXTREMITIES: No lower extremity edema. PHYSICAL EXAMINATION VITAL SIGNS: Blood pressure 104/59, heart rate 68, BMI is 52. GENERAL: This is a morbidly obese 46-year-old white male who is in no acute distress. NEUROLOGICAL: He is awake, alert and oriented. There are no focal weaknesses. NECK: Trachea is midline. No thyromegaly or lymphadenopathy. No jugular venous distention. HEART: S1, S2 heart sounds are normal. No murmurs, rubs or clicks. Regular rate and rhythm. LUNGS: Diminished breath sounds throughout both lungs. No rales, rhonchi or wheezing. ABDOMEN: Soft, obese with bowel sounds present. No organomegaly. EXTREMITIES: Trace lower extremity edema. SKIN: Warm and dry. Unit #: [id number] #: [id number] Patient: ASHLEY MEJIA DIAGNOSTIC STUDIES LABORATORY: Glucose 110, BUN 22, creatinine 1.1, sodium 136, potassium 4.6, hemoglobin 10.8, hematocrit 34.6, platelet count 123, white count 9.3, troponin less than 0.03. BNP 157. IMAGING: Chest x-ray shows cardiomegaly and some central vascular congestion. CARDIOVASCULAR: Admitting electrocardiogram shows sinus tachycardia, rate 106 beats/minute with right bundle branch block. Has left atrial enlargement. IMPRESSION 1. Acute hypoxic respiratory failure. 2. Hypotension. 3. Nonsustained ventricular tachycardia. 4. Probable viral pneumonia. 5. Chronic obstructive pulmonary disease. 6. Morbid obesity. 7. Chronic systolic heart failure with reduced ejection fraction of 30% to 35%. 8. Ischemic cardiomyopathy, status post automatic implantable cardioverter defibrillator. 9. History of coronary artery bypass graft x2 with tissue mitral valve replacement in 2010. PLAN 1. Cardiology was consulted for ventricular tachycardia. The patient had no device checks since 2014. Device check today shows numerous nonsustained ventricular tachycardia no longer than four seconds to no discharge of his device. Battery good with normal lead function. 2. No LAILA inhibitor or ARB for cardiomyopathy because of hypotension. 3. Will start the patient on amiodarone 200 mg b.i.d. for one week and 200 mg daily for nonsustained ventricular tachycardia. 4. Cardiac rehab consult. 5. The patient can be discharged home today to follow up with Dr. Joseph on February 14 at 11:30 a.m. He will get a device check at that time to further evaluate for arrhythmias. Thank you for allowing us to assist with this patient's care. Dictated by... Andres MahajanPDanyRDanyNDany for Cuauhtemoc Martinez/haley TD: 11/25/2016 06:37 JOB #: [id number] Unit #: [id number] #: [id number] Patient: ASHLEY MEJIA CONSULTATION REPORT Page 1 of 1 X Edward Stein APRN CONSULTATION REPORT
--- NOTE | ~2016-11-18 | BMI ---
[facility] Nutrition Therapy DATE: 11/19/16 Patient: ASHLEY MEJIA Physician: RADHA Address: [address] [facility] [facility] Room/Bed: [address], Zip: [place] [address] Admit Date: 11/18/16 Date of : [birth year] Height: 5 5 Weight: 315 143 HIGH BMI NOTE: DX: 46 Y.O. MALE ADMITTED FOR RESPIRATORY FAILURE ANTHROPOMETRICS: 5'5", WT: 315# (143 KG), BMI: 52.4 DIET: HEALTHY HEART INTERVENTION: 1. HEALTHY HEART DIET RECOMMENDATIONS: 1. CONTINUE CURRENT DIET ORDER ABOVE TO PROMOTE GRADUAL WEIGHT LOSS TOWARDS HEALTHY BMI (19.0-25.0) OR +/-10%IBW RD WILL F/U PER PROTOCOL Respectfully, LOUIE MEDINA MS, RD, LD [facility] cc: client file
--- NOTE | ~2016-11-18 | CO ---
Unit #: [id number] #: [id number] Patient: ASHLEY MEJIA [id number] [address] [address] [id number] I MR#: [id number] NAME: ASHLEY MEJIA ROOM: [facility] Age: 46 Sex: M Admission Date: 11/18/2016 : 1970 Attending Physician: Darius Abebe M.D. Primary Care Physician: [facility]. Consultation Date: 11/19/2016 CONSULTATION REPORT REFERRING PHYSICIAN Dr. Crisostomo. HISTORY OF PRESENT ILLNESS This is a pleasant 46-year-old gentleman with ischemic cardiomyopathy, O2 dependent COPD, history of STANISLAW, history of chronic respiratory failure with multiple admissions. Patient was recently here approximately three weeks ago with renal failure caused by vancomycin. Patient was discharged to home approximately two days and started developing increasing shortness of breath, increasing wheezing. He had cough productive of purulent sputum. He had worsening diaphoresis. Patient called EMS. His O2 saturations were low. He was placed on CPAP, changed to BiPAP. Chest x-ray improved and the patient was started on treatment for HCAP organisms. We have been asked to see for COPD exacerbation. PAST MEDICAL HISTORY 1. Obstructive sleep apnea. 2. Ischemic cardiomyopathy, status post two-vessel CABG in 2010. 3. History of ejection fraction 35%. 4. History of recurrent pneumonias. 5. History of hypertension. 6. Hyperlipidemia. 7. COPD on 2.5 L of oxygen. 8. Depression. 9. Chronic right bundle branch block. 10. Morbid obesity. 11. Hyperlipidemia. 12. Essential hypertension. PAST SURGICAL HISTORY 1. Coronary artery bypass graft in 2010. 2. Laparoscopic cholecystectomy in 2017. ALLERGIES No known drug allergies. DISCHARGE/HOME MEDICATIONS 1. Ventolin two puffs q.4 hours as needed. 2. DuoNeb q.6 hours scheduled. 3. Breo 200 one puff once a day. 4. Lasix 20 mg b.i.d. 5. Pravachol 20 mg nightly. 6. Singulair 10 mg q.a.m. 7. Aspirin 81 mg daily. Unit #: [id number] #: [id number] Patient: ASHLEY MEJIA FAMILY HISTORY Negative for disease. SOCIAL HISTORY Shows patient lives with and son. He smoked up to two packs a day, has cut down recently. No history of alcohol. REVIEW OF SYSTEMS Positive for shortness of breath, some cough, some wheezing, diaphoresis. No fevers, chills, nausea, vomiting, diarrhea. Otherwise, a 12-point review of systems is negative. PHYSICAL EXAMINATION VITAL SIGNS: T-current is 96.8, pulse 74, respiratory rate 18, blood pressure 99.48, saturating 99% on 40% FIO2 on BiPAP. HEENT: Extraocular movements are intact. Pupils equal, round, and reactive to light. Head is normocephalic and atraumatic. Patient is on BiPAP. NECK: Shows no JVD. There is accessory muscle use. CHEST: Shows decreased breath sounds bilaterally. CARDIOVASCULAR: Regular rate. No gallop. ABDOMEN: Soft, nontender, nondistended. Obese. EXTREMITIES: Shows trace to plus 1 edema. Pulses are 1+. DIAGNOSTIC STUDIES LABORATORY: White count 4.9, hemoglobin 11.6, platelets 108,000. Sodium 136, BUN and creatinine 22 and 1.2, glucose 146. Blood gas: 7.335, 65.6, and 99.4. ASSESSMENT 1. Chronic obstructive pulmonary disease exacerbation. 2. Acute on chronic respiratory failure, hypercapnic type. 3. Acute bronchitis with HCAP organisms. 4. History of cardiomyopathy. PLAN Plan on treatment of chronic obstructive pulmonary disease exacerbation with steroids. Continue BiPAP. I would like to continue current antibiotics. We will see a brain natriuretic peptide repeat in the morning. Dictated by... Rufino Cabrera M.D. MARIE/yudy TD: 11/19/2016 11:17 JOB #: [id number] Unit #: [id number] #: [id number] Patient: ASHLEY MEJIA CONSULTATION REPORT Page 1 of 1 X Romel Cabrera MD CONSULTATION REPORT
[2016-11-18 18:30] LABS: ARTERIAL BLD GAS O2 SATURATION 95.8 % (90.0-100.0); ARTERIAL BLOOD GAS HCO3 38.1 mmol/L; ARTERIAL BLOOD GAS pH 7.397 (7.350-7.450)
[2016-11-18 18:31] LABS: ARTERIAL BLOOD GAS ALLEN TEST NORMAL; ARTERIAL BLOOD GAS ART SITE LEFT RADIAL; ARTERIAL BLOOD GAS DELIVERY BIPAP 16/6; ARTERIAL BLOOD GAS PCO2 61.9 mmHg (35.0-45.0); ARTERIAL DRAW? YES
[2016-11-18 18:48] LABS: BASOPHIL# 0.1 X10e3 (0-0.3); BASOPHIL% 0.7 % (0-2.5); EOSINOPHIL# 0.3 X10e3 (0-0.7); EOSINOPHIL% 3.6 % (0.0-7.0); HEMATOCRIT 40.9 % (38.0-50.0); LYMPHOCYTE# 1.2 X10e3 (1.0-3.5); LYMPHOCYTE% 16.8 % (17.0-45.0); MEAN CELL VOLUME 90.2 FL (83-96); MEAN CORPUSCULAR HEMOGLOBIN 28.6 PG (28-34); MEAN CORPUSCULAR HGB CONC 31.7 g/dL (30-36); MEAN PLATELET VOLUME 7.9 FL (6.5-11.5); MONOCYTE# 0.7 X10e3 (0-1.0); MONOCYTE% 8.8 % (3.0-12.0); NEUTROPHIL# 5.2 X10e3 (1.5-7.1); NEUTROPHIL% 70.1 % (40-75); PLATELET COUNT 141 X10e3 (140-420); RED BLOOD COUNT 4.53 X10e (3.90-5.60); RED CELL DISTRIBUTION WIDTH 16.2 % (11.0-15.5); WHITE BLOOD COUNT 7.4 X10e3 (4.0-10.5)
[2016-11-18 18:49] LABS: POC - CKMB 2.1 ng/mL (0.0-7.9); POC - TROPONIN <0.05 ng/mL (<=0.05)
[2016-11-18 18:49] LABS: DIFF IND NO
[2016-11-18 19:02] LABS: PARTIAL THROMBOPLASTIN TIME 22.6 SECONDS (23.5-31.3); PROTHROMBIN TIME (PATIENT) 10.4 SECONDS (9.6-11.5)
[2016-11-18 19:13] LABS: ALBUMIN SERUM 3.7 g/dL (3.5-5.0); BILIRUBIN, DIRECT 0.1 mg/dL (0.0-0.2); BILIRUBIN,INDIRECT 0.8 mg/dL (0.0-0.9); BILIRUBIN,TOTAL 0.9 mg/dL (0.2-2.0); CALCIUM SERUM 8.8 mg/dL (8.4-10.2); GLOM FILT RATE Estimated 90.5 mL/min (>60); POTASSIUM 4.3 mmol/L (3.5-5.1); PROTEIN TOTAL SERUM 7.2 g/dL (6.0-8.3)
[2016-11-18] MEDS ORDERED: INCRUSE ELLI62.5 MCG INH (20:20)
[2016-11-18] MEDS ORDERED: LASIX20 MG PO (20:21)
[2016-11-18] MEDS ORDERED: LISINOPRIL10 MG PO (20:21)
[2016-11-18] MEDS ORDERED: COREG3.125 MG PO (20:21)
[2016-11-18] MEDS ORDERED: ALDACTONE25 MG PO (20:21)
[2016-11-18] MEDS ORDERED: PRAVACHOL20 MG PO (20:21)
[2016-11-18] MEDS ORDERED: ALB/IPRATROPIUM/1 E1 INH (20:21)
[2016-11-18] MEDS ORDERED: SINGULAIR PO (20:22)
[2016-11-18] MEDS ORDERED: ALBUTEROL17 GM INH (20:22)
[2016-11-18 20:24] LABS: ARTERIAL BLD GAS O2 SATURATION 95.4 % (90.0-100.0); ARTERIAL BLOOD GAS CARBOXY HB 2.2 %sat (0.0-9.0); ARTERIAL BLOOD GAS MET HB 0.1 %sat (0.0-2.0); ARTERIAL BLOOD GAS PO2 96.6 mmHg (80.0-100)
[2016-11-18 20:25] LABS: ARTERIAL BLOOD GAS ALLEN TEST NORMAL; ARTERIAL BLOOD GAS ART SITE RIGHT RADIAL; ARTERIAL BLOOD GAS DELIVERY BIPAP 16/6; ARTERIAL BLOOD GAS PCO2 67.2 mmHg (35.0-45.0); ARTERIAL DRAW? YES
[2016-11-19 01:50] LABS: URINE SOURCE CLEAN CATCH
[2016-11-19 01:57] LABS: URINE APPEARANCE CLOUDY; URINE BILIRUBIN NEG (NEG); URINE BLOOD NEG (NEG); URINE COLOR DK YELLOW; URINE GLUCOSE NEG (NEG); URINE KETONE TRACE (NEG); URINE LEUKOCYTE ESTERASE NEG (NEG); URINE NITRATE NEG (NEG); URINE PROTEIN 1+ (NEG); URINE SPECIFIC GRAVITY 1.025 (1.003-1.035)
[2016-11-19 02:00] LABS: CULTURE INDICATED? YES; URINE BACTERIA AUWI NEG (NEGATIVE); URINE SQUAMOUS EPITHELIAL CELL OCC /[HPF]
[2016-11-19 02:12] LABS: URBCS1 AUWI NEG /[HPF] (0-2)
[2016-11-19 04:44] LABS: ARTERIAL BLD GAS O2 SATURATION 95.1 % (90.0-100.0); ARTERIAL BLOOD GAS CARBOXY HB 1.2 %sat (0.0-9.0); ARTERIAL BLOOD GAS HCO3 34.9 mmol/L; ARTERIAL BLOOD GAS MET HB 1.3 %sat (0.0-2.0); ARTERIAL BLOOD GAS PO2 99.4 mmHg (80.0-100); ARTERIAL BLOOD GAS pH 7.335 (7.350-7.450)
[2016-11-19 05:01] LABS: ARTERIAL BLOOD GAS ALLEN TEST NORMAL; ARTERIAL BLOOD GAS ART SITE RIGHT RADIAL; ARTERIAL BLOOD GAS DELIVERY BIPAP 16/6; ARTERIAL BLOOD GAS PCO2 65.6 mmHg (35.0-45.0); ARTERIAL DRAW? YES
[2016-11-19 06:59] LABS: EOSINOPHIL% 0.2 % (0.0-7.0); HEMATOCRIT 36.9 % (38.0-50.0); HEMOGLOBIN 11.6 gm/dL (13.0-16.0); LYMPHOCYTE# 0.4 X10e3 (1.0-3.5); LYMPHOCYTE% 8.1 % (17.0-45.0); MEAN CELL VOLUME 90.1 FL (83-96); MEAN CORPUSCULAR HEMOGLOBIN 28.2 PG (28-34); MEAN CORPUSCULAR HGB CONC 31.3 g/dL (30-36); MEAN PLATELET VOLUME 7.9 FL (6.5-11.5); MONOCYTE# 0.1 X10e3 (0-1.0); NEUTROPHIL# 4.4 X10e3 (1.5-7.1); NEUTROPHIL% 88.7 % (40-75); PLATELET COUNT 108 X10e3 (140-420); RED BLOOD COUNT 4.09 X10e (3.90-5.60); RED CELL DISTRIBUTION WIDTH 15.6 % (11.0-15.5); WHITE BLOOD COUNT 4.9 X10e3 (4.0-10.5)
[2016-11-19 07:01] LABS: DIFF IND NO
[2016-11-19 07:40] LABS: BUN/CREATININE RATIO 18.33; CALCIUM SERUM 8.5 mg/dL (8.4-10.2); CREATININE SERUM 1.2 mg/dL (0.6-1.4); GLOM FILT RATE Estimated 72.6 mL/min (>60); POTASSIUM 4.8 mmol/L (3.5-5.1)
[2016-11-20 07:48] LABS: BASOPHIL% 0.1 % (0-2.5); HEMATOCRIT 35.3 % (38.0-50.0); HEMOGLOBIN 11.2 gm/dL (13.0-16.0); LYMPHOCYTE# 0.5 X10e3 (1.0-3.5); LYMPHOCYTE% 4.8 % (17.0-45.0); MEAN CELL VOLUME 89.6 FL (83-96); MEAN CORPUSCULAR HEMOGLOBIN 28.5 PG (28-34); MEAN CORPUSCULAR HGB CONC 31.8 g/dL (30-36); MEAN PLATELET VOLUME 8.5 FL (6.5-11.5); MONOCYTE# 0.5 X10e3 (0-1.0); MONOCYTE% 4.3 % (3.0-12.0); NEUTROPHIL# 9.6 X10e3 (1.5-7.1); NEUTROPHIL% 90.8 % (40-75); PLATELET COUNT 112 X10e3 (140-420); RED BLOOD COUNT 3.94 X10e (3.90-5.60); RED CELL DISTRIBUTION WIDTH 15.8 % (11.0-15.5)
[2016-11-20 07:52] LABS: DIFF IND NO; WHITE BLOOD COUNT 10.5 X10e3 (4.0-10.5)
[2016-11-20 08:25] LABS: CALCIUM SERUM 8.3 mg/dL (8.4-10.2); GLOM FILT RATE Estimated 90.5 mL/min (>60); POTASSIUM 4.8 mmol/L (3.5-5.1)
[2016-11-20 08:35] LABS: PROCALCITONIN 0.1 NG/ML
[2016-11-21 07:15] LABS: HEMATOCRIT 37.6 % (38.0-50.0); HEMOGLOBIN 11.6 gm/dL (13.0-16.0); MEAN CORPUSCULAR HEMOGLOBIN 28.2 PG (28-34); MEAN CORPUSCULAR HGB CONC 30.7 g/dL (30-36); MEAN PLATELET VOLUME 8.9 FL (6.5-11.5); RED BLOOD COUNT 4.09 X10e (3.90-5.60); RED CELL DISTRIBUTION WIDTH 16.6 % (11.0-15.5); WHITE BLOOD COUNT 11.6 X10e3 (4.0-10.5)
[2016-11-21 07:39] LABS: CALCIUM SERUM 8.4 mg/dL (8.4-10.2); CREATININE SERUM 0.8 mg/dL (0.6-1.4); GLOM FILT RATE Estimated 107.9 mL/min (>60); POTASSIUM 4.7 mmol/L (3.5-5.1)
[2016-11-22 06:26] LABS: HEMATOCRIT 34.6 % (38.0-50.0); HEMOGLOBIN 10.8 gm/dL (13.0-16.0); MEAN CELL VOLUME 91.7 FL (83-96); MEAN CORPUSCULAR HEMOGLOBIN 28.5 PG (28-34); MEAN CORPUSCULAR HGB CONC 31.1 g/dL (30-36); MEAN PLATELET VOLUME 8.9 FL (6.5-11.5); RED BLOOD COUNT 3.78 X10e (3.90-5.60); RED CELL DISTRIBUTION WIDTH 16.3 % (11.0-15.5); WHITE BLOOD COUNT 9.3 X10e3 (4.0-10.5)
[2016-11-22 08:05] LABS: CREATININE SERUM 1.1 mg/dL (0.6-1.4); GLOM FILT RATE Estimated 80.7 mL/min (>60); POTASSIUM 4.6 mmol/L (3.5-5.1)
[2016-11-22] MEDS ORDERED: AMIODARONE PO (16:09)
[2016-11-22] MEDS ORDERED: HYDROXYZINE PAM25 MG PO (16:10)
[2016-11-22] MEDS ORDERED: ZOLOFT50 MG PO (16:11)
[2016-11-22] MEDS ORDERED: PREDNISONE10 M1 PO (16:12)
== END 2016-11-22 18:29 | disposition home or self-care (01) | DRG 189 ==
LOC: CED 18:15 → CEDOF 21:54 → CED 21:54 → CICCU2 21:54 → CEDOF 22:11 → C5C 22:11 → CICCU2 11-19 02:42 → CEDOF 11-19 02:42 → CICCU2 11-19 08:03 → C5C 11-19 18:17
PROVIDERS: Emergency Medicine; Internal Medicine; Internal Medicine Pulmonary Disease
PROC: 5A09457 Assistance with Respiratory Ventilation, 24-96 Consecutive Hours, Continuous Positive Airway Pressure (ICD-10-PCS; principal; 2016-11-18)
DX: J96.21 Acute and chronic respiratory failure with hypoxia (principal); I47.2 Ventricular tachycardia; J12.9 Viral pneumonia, unspecified; I11.0 Hypertensive heart disease with heart failure; I50.22 Chronic systolic (congestive) heart failure; Z99.81 Dependence on supplemental oxygen; J44.0 Chronic obstructive pulmonary disease with (acute) lower respiratory infection; J44.1 Chronic obstructive pulmonary disease with (acute) exacerbation; F33.0 Major depressive disorder, recurrent, mild; J20.9 Acute bronchitis, unspecified; I25.5 Ischemic cardiomyopathy; E78.5 Hyperlipidemia, unspecified; E66.01 Morbid (severe) obesity due to excess calories; J45.909 Unspecified asthma, uncomplicated; F41.9 Anxiety disorder, unspecified; I45.10 Unspecified right bundle-branch block; Z90.49 Acquired absence of other specified parts of digestive tract
CPT/HCPCS: 36415; 36600; 71010; 80048; 80076; 81003; 82308; 82550; 82553; 82803; 83605; 83735; 83880; 84484; 85025; 85027; 85610; 85730; 87040; 87070; 87086; 87205; 93005; 94640; 94660; 94664; 94760; 94761; 96365; 96367; 97110; 97116; 97163; 97166; 97530; 97535; 99285; G8987-GO; G8988-GO; J0692; J1650; J2543; J2920; J2930; J3260; J3370

== ENCOUNTER 2016-12-11 16:57 | Inpatient (IN) | payer OTHER ==
--- NOTE | ~2016-12-11 | CT16 ---
[facility] A Service of [facility] RADIOLOGY TEXT RESULTS PATIENT: ASHLEY MEJIA LOCATION: [facility] [address] : [birth year] UNIT #: [id number] AGE: [address]: Saranya Wheat MD SEX: M ORDER DR: [id number] [facility] [address] [place], [place] [address] [id number] MR#: [id number] Acc #: [id number] NAME: ASHLEY MEJIA : 1970 SEX: M STUDY DATE/TIME: 12/11/2016 22:23 [facility]: 22774 STUDY DESCRIPTION: CT Angio Chest for PE Attending Physician: Carine Crisostomo M.D. Ordering Physician: Carine Crisostomo M.D. Primary Care Physician: [facility] [place] IMAGING REPORT This report is preliminary unless electronic signature is present EXAM CT chest PE protocol. HISTORY Shortness of air, chest pain for [address] chest 07/28/2016 TECHNIQUE Axial images performed through the chest following IV contrast. 3-D coronal and sagittal reconstructed images were reviewed at a workstation. This CT exam was performed with one or more of the following radiation dose reduction techniques: automatic exposure control, adjustment of mA and/or kV according to patient size, and iterative reconstruction. FINDINGS Calcified granuloma right middle lobe. No infiltrates or effusions. Suspected mild centrilobular emphysema. Trachea and bronchi unremarkable. Cardiomegaly in this patient post median sternotomy and mitral valve replacement. Pacemaker leads noted. Normal enhancement of the pulmonary arteries, no evidence of embolus. Shotty mediastinal lymphadenopathy. Patient is noted to have an apparent persistent left hemiazygos vein. Upper abdomen unremarkable. Osseous structures, thoracic inlet unremarkable. Pacemaker noted over the left chest. IMPRESSION 1. No acute intrathoracic abnormality identified. 2. Cardiomegaly with extensive coronary artery atherosclerotic changes. [facility] A Service of [facility] & [facility] RADIOLOGY TEXT RESULTS PATIENT: ASHLEY MEJIA LOCATION: [facility] 558-01 : [birth year] UNIT #: [id number] AGE: [address]: Saranya Wheat MD SEX: M ORDER DR: Patient is apparently post CABG and mitral valve replacement. Pacemaker noted. 3. Pulmonary parenchymal changes suggesting mild centrilobular emphysema. Dictated by... Iris Vanessa M.D. THIS IS AN ELECTRONICALLY VERIFIED REPORT Iris Vanessa M.D. at 12/12/2016 2:48 PM BARRINGTON/miryam TD: 12/11/2016 23:07 JOB #: [id number] MEDICAL IMAGING REPORT Page 1 of 1 COPY
--- NOTE | ~2016-12-11 | DS ---
Unit #: [id number] #: [id number] Patient: ASHLEY MEJIA [id number] [address] [address] [id number] I MR#: [id number] NAME: ASHLEY MEJIA ROOM: 558 Age: 46 Sex: M Admission Date: 12/11/2016 : 1970 Discharge Date: Attending Physician: Saranya Wheat M.D. [facility] DIS[facility] SUMMARY DISCHARGE DIAGNOSES 1. Chronic obstructive pulmonary disease exacerbation. 2. Gram positive bacteremia, which turned out to be contamination. Repeat blood cultures were negative. 3. Morbid obesity. 4. Chronic respiratory failure. 5. Depression. 6. (1) chronic systolic congestive heart failure with an ejection fraction of 35%. HOSPITAL COURSE 46-year-old male with a history of ischemic cardiomyopathy, chronic respiratory failure, COPD, oxygen dependent is admitted with increasing shortness of air and hypotension. He was treated with IV fluids and started on IV antibiotics and IV steroids and Solu-Medrol. He had blood cultures, which turned out to be gram-positive, but repeated blood cultures were negative. He is clinically improved. He is stable to be discharged home today. DISCHARGE MEDICATIONS 1. Prednisone tapering doses 40 mg. 2. Albuterol and Ipratropium nebulizers. 3. Amiodarone 200 m daily. 4. Zoloft 50 mg daily at bedtime. 5. Hydroxyzine 25 mg t.i.d. 6. Carvedilol 6.25 mg b.i.d. 7. Furosemide 20 mg p.o. b.i.d. 8. Pravastatin 20 mg p.o. at bedtime. 9. Lisinopril 10 mg daily. 10. Singulair 10 mg daily. 11. Spironolactone 25 mg daily. DISPOSITION To home. FOLLOWUP Follow with the primary care in 1-2 weeks. Dictated by... Bonnie Barber M.D. Unit #: [id number] #: [id number] Patient: ASHLEY MEJIA MELISSA/rosa maria TD: 12/15/2016 14:45 JOB #: [id number] DISCHARGE SUMMARY Page 1 of 1 X Bonnie Barber MD X DISCHARGE SUMMARY
--- NOTE | ~2016-12-11 | CR72 ---
[facility] A Service of [facility] & [facility] RADIOLOGY TEXT RESULTS PATIENT: ASHLEY MEJIA LOCATION: [facility] 558- : [birth year] UNIT #: [id number] AGE: [address]: Saranya Wheat MD SEX: M ORDER DR: [id number] [facility] [address] [place] [facility] [place], [place] [address] [id number] MR#: [id number] Acc #: [id number] NAME: ASHLEY MEJIA : 1970 SEX: M STUDY DATE/TIME: 12/11/2016 18:08 UNIT: [facility] ROOM: STUDY DESCRIPTION: CR Chest Single View Portable Attending Physician: Cedrick Cox M.D. Ordering Physician: Cedrick Cox M.D. Primary Care [facility]AG[facility] REPORT This report is preliminary unless electronic signature is present EXAM Portable chest HISTORY Shortness of air chest pain onset today. History of CHF. Prior CABG. COMPARISON 11/21/2016 FINDINGS Portable view of the chest demonstrates pulmonary hyperinflation. No definite infiltrates or effusions. Scattered parenchymal densities may represent sequela of old granulomas disease. Stable cardiomegaly in this patient post median sternotomy and valve replacement. Pacemaker noted. No pneumothorax. Dictated by... Iris Vanessa M.D. THIS IS AN ELECTRONICALLY VERIFIED REPORT Iris Vanessa M.D. at 12/12/2016 2:46 PM BARRINGTON/alan TD: 12/11/2016 18:56 JOB #: [id number] MEDICAL IMAGING REPORT Page 1 of 1 COPY
--- NOTE | ~2016-12-11 | BMI ---
[facility] DATE: 12/12/16 Patient: ASHLEY MEJIA Physician: RADHA Address: [address] [facility] Room/Bed: [address] [place] [address], Zip: [place] [address] Admit Date: 12/11/16 Date of : [birth year] Height: 5 4 Weight: 285 129.3 HIGH BMI NOTE: DX: 46 Y.O. MALE ADMITTED FOR DYSPNEA, HYPOTENSION, CHEST PAIN ANTHROPOMETRICS: 5'5", WT: 285# (130 KG), BMI: 47.4 DIET: HEALTHY HEART DIET RECOMMENDATIONS: 1. CONTINUE CURRENT DIET ORDER ABOVE TO PROMOTE GRADUAL WEIGHT LOSS TOWARDS HEALTHY BMI (19.0-25.0) OR +/-10%IBW RD WILL F/U PER PROTOCOL Respectfully, LOUIE MEDINA MS, RD, LD [facility] Nutrition[facility] cc: client file
--- NOTE | ~2016-12-11 | EKG ---
PATIENT: ASHLEY MEJIA UNIT #: [id number] Ventricular Rate: 99 BPM Atrial Rate: 99 BPM P-R Interval: 188 ms QRS Duration: 132 ms Q-T Interval: 366 ms QTC Calculation(Bezet): 469 ms P [place]: 70 degrees Calculated R [place]: 75 degrees Calculated T [place]: 56 degrees Diagnosis Line: Normal sinus rhythm Diagnosis Line: Possible Left atrial enlargement Diagnosis Line: Right bundle branch block Diagnosis Line: Abnormal ECG Diagnosis Line: When compared with ECG of 18-NOV-2016 18:33, Diagnosis Line: No significant change was found Diagnosis Line: Confirmed by SHARON TIM MD ([id number]) on Diagnosis Line: 12/12/2016 7:29:36 AM INTERPRETING VANDANA ATWOOD
--- NOTE | ~2016-12-11 | HP ---
Unit #: [id number] #: [id number] Patient: ASHLEY MEJIA [id number] [address] [address] [id number] E MR#: [id number] NAME: ASHLEY MEJIA ROOM: Age: 46 Sex: M Admission Date: 12/11/2016 : 1970 Attending Physician: Pete Orozco M.D. [facility] HISTORY AND PHYSICAL CHIEF COMPLAINT Chest pain, shortness of breath, hypotension, hypocalcemia. HISTORY OF PRESENT ILLNESS This 46-year-old male with an ischemic cardiomyopathy and O2-dependent COPD is admitted for complaints of chest pain and shortness of breath. This patient was last admitted to this facility November 18, 2016, for COPD exacerbation. He was noted to have long runs of nonsustained ventricular tachycardia and was started on amiodarone. He states that he was well until yesterday when he began to experience pleuritic chest pain, low back pain, increasing shortness of breath, and lightheadedness. He notes a nonproductive cough with the above, along with sweats. He did have wheezing initially which has improved. He presented to this ER with a blood pressure of 82/62. He was given a liter of saline and current systolic blood pressure is 108. Patient was given 125 mg of Solu-Medrol. His calcium was found to be quite low at 5.7, and he was given 1 amp of calcium gluconate. He still is complaining of chest pain and shortness of breath, although his pulmonary examination at this time reveals clear lungs. He does have reproducible chest wall tenderness. Chest x-ray does not reveal acute disease. PAST MEDICAL HISTORY 1. Obstructive sleep apnea. 2. Ischemic cardiomyopathy, status post two-vessel CABG in 2010. Ejection fraction 35%. Patient is status post tissue mitral valve replacement and is status post AICD placement. He does have a history of nonsustained ventricular tachycardia and was started on amiodarone over the past month. Last Lexiscan Cardiolite stress test in September 2012 was negative for obvious stress-induced ischemia. On echo in September 2016, patient had mild to moderate MR and mild to moderate pulmonary valvular regurgitation with moderate TR and moderate to severe diffuse atherosclerosis of the aorta. 3. Obstructive sleep apnea currently not on BiPAP. Apparently, there is some problem with the machine or patient needs another sleep study, I am unsure. 4. Vancomycin-induced kidney injury when being treated with vancomycin for MRSA pneumonia. 5. Essential hypertension. 6. Hyperlipidemia. 7. Chronic obstructive pulmonary disease, on 2.5 to 3 liters of oxygen. 8. Depression. 9. Chronic right bundle branch block. Unit #: [id number] #: [id number] Patient: ASHLEY MEJIA 10. Laparoscopic cholecystectomy for chronic cholecystitis in June 2016. 11. Morbid obesity. ALLERGIES No known drug allergies. HOME MEDICATIONS 1. Albuterol 2 puffs q.6 hours as needed. 2. DuoNebs q.6 hours. 3. Amiodarone 200 mg b.i.d. 4. Zoloft 50 mg at bedtime. 5. Incruse Ellipta 1 puff daily. 6. Vistaril 25 mg t.i.d. 7. Coreg 3.125 mg b.i.d. 8. Lasix 20 mg b.i.d. 9. Pravachol 20 mg at bedtime. 10. Lisinopril 10 mg daily. 11. Singulair 10 mg daily. 12. Spironolactone 25 mg daily. The amiodarone, lisinopril, Spironolactone, and Coreg were new medicines at the time of the patient's last discharge. FAMILY HISTORY Negative for lung disease. SOCIAL HISTORY The patient lives with his and son. He smoked up to two packs per day of tobacco but cut down over the past year and has not smoked for the five days. He does not drink alcohol. REVIEW OF SYSTEMS Notable for shortness of breath, wheezing, nonproductive cough, diaphoresis, chest pain, STANISLAW, COPD, ischemic cardiomyopathy, above-mentioned cardiac procedures, hypertension, hyperlipidemia, depression, cholecystectomy, and back pain. All other systems were reviewed and are otherwise negative. PHYSICAL EXAMINATION: GENERAL: An uncomfortable-appearing, morbidly obese, 46-year-old male. VITAL SIGNS: Temperature 98.5, pulse 95, respirations 20, initial blood pressure 82/62, current blood pressure 145/107, and O2 saturation is 95% on 3 liters of oxygen. HEENT: Eyes PERRLA. Extraocular muscles are intact. Pharynx is benign. NECK: Supple without adenopathy or thyromegaly. CHEST: Actually currently clear. There is reproducible chest wall tenderness on exam. CARDIAC: Normal S1 and S2 with a soft systolic murmur. ABDOMEN: Bowel sounds are present. There is a chronic, hard, superficial mass over the mid abdomen. No definite hepatosplenomegaly. Mild generalized tenderness. EXTREMITIES: Without edema. Pedal pulses are diminished. NEUROLOGIC: Patient is awake, alert, and oriented. Cranial nerves are intact. Equal strength throughout. DIAGNOSTIC STUDIES ADMISSION LABORATORY: Hematocrit is 43, white blood count is 16.5, and Unit #: [id number] #: [id number] Patient: ASHLEY MEJIA normal platelet count. SMA-12: BUN 29, creatinine 0.5, chloride 99, and calcium 5.7, down from a calcium of 8 with an albumin of 3, so the calcium corrects to about 6. Cardiac markers negative. IMAGING: Chest x-ray shows no acute disease, scattered parenchymal densities may represent sequelae of old granulomatous disease, stable cardiomegaly, and postop changes. CARDIOLOGY: EKG shows a sinus rhythm, rate 99, with a right bundle branch block which is old. ASSESSMENT 1. Complaints of dyspnea and pleuritic chest pain. May be related to bronchitis and patient's chronic obstructive pulmonary disease. Will rule out pulmonary embolism. 2. Hypocalcemia. Rule out laboratory error. Will repeat calcium and obtain a magnesium. If calcium is still low, will work up further. 3. Near syncope with low blood pressure. Patient's cardiac medications were increased during last hospitalization. 4. Obstructive sleep apnea. 5. Chronic obstructive pulmonary disease, on home oxygen. 6. Ischemic cardiomyopathy, status post two-vessel coronary artery bypass grafting, with ejection fraction of 35%, associated with valvular heart disease. The patient is status post tissue mitral valve replacement. He does take amiodarone and is status post automatic implantable cardioverter-defibrillator placement for nonsustained ventricular tachycardia. 7. History of hypertension with low blood pressure. 8. Depression. 9. Morbid obesity. PLANS 1. CT of the chest. 2. Hold lisinopril and Spironolactone. 3. Calcium gluconate given in the ER. Will recheck a calcium now and obtain magnesium before working up further. 4. DVT prophylaxis. 5. DuoNebs and steroids. 6. Further plans including antibiotics depending on CT scan of the chest. 1. Dictated by Cuauhtemoc Hector/hillary TD: 12/11/2016 22:09 JOB #: [id number] Unit #: [id number] #: [id number] Patient: ASHLEY MEJIA HISTORY AND PHYSICAL Page 1 of 1 X Carine Crisostomo MD X HISTORY AND PHYSICAL
[~2016-12-11 16:57] MED LIST changes: +AMIODARONE PO; +HYDROXYZINE PAM25 MG PO; +INCRUSE ELLI62.5 MCG INH; +PRAVACHOL20 MG PO; +PREDNISONE10 M1 PO; +SINGULAIR PO; +ZOLOFT50 MG PO
[2016-12-11 17:56] LABS: POC - CKMB <1.0 ng/mL (0.0-7.9); POC - TROPONIN <0.05 ng/mL (<=0.05)
[2016-12-11 18:23] LABS: EOSINOPHIL# 0.1 X10e3 (0-0.7); EOSINOPHIL% 0.7 % (0.0-7.0); HEMOGLOBIN 13.6 gm/dL (13.0-16.0); LYMPHOCYTE# 1.6 X10e3 (1.0-3.5); LYMPHOCYTE% 9.9 % (17.0-45.0); MEAN CORPUSCULAR HEMOGLOBIN 28.1 PG (28-34); MEAN CORPUSCULAR HGB CONC 31.6 g/dL (30-36); MEAN PLATELET VOLUME 8.2 FL (6.5-11.5); MONOCYTE# 1.3 X10e3 (0-1.0); MONOCYTE% 7.6 % (3.0-12.0); NEUTROPHIL# 13.5 X10e3 (1.5-7.1); NEUTROPHIL% 81.8 % (40-75); PLATELET COUNT 178 X10e3 (140-420); RED BLOOD COUNT 4.83 X10e (3.90-5.60); RED CELL DISTRIBUTION WIDTH 15.9 % (11.0-15.5); WHITE BLOOD COUNT 16.5 X10e3 (4.0-10.5)
[2016-12-11 18:25] LABS: DIFF IND YES
[2016-12-11 18:43] LABS: BILIRUBIN, DIRECT 0.1 mg/dL (0.0-0.2); BILIRUBIN,INDIRECT 1.1 mg/dL (0.0-0.9); BILIRUBIN,TOTAL 1.2 mg/dL (0.2-2.0); CREATININE SERUM 0.5 mg/dL (0.6-1.4); GLOM FILT RATE Estimated 130.9 mL/min (>60); POTASSIUM 3.6 mmol/L (3.5-5.1); PROTEIN TOTAL SERUM 4.1 g/dL (6.0-8.3)
[2016-12-11 18:44] LABS: CALCIUM SERUM 5.7 mg/dL (8.4-10.2)
[2016-12-11 18:58] LABS: PLATELET ESTIMATE NORMAL (NORMAL)
[2016-12-12 00:20] LABS: MAGNESIUM 1.8 mg/dL (1.6-3.0)
[2016-12-12 00:21] LABS: CALCIUM SERUM 8.2 mg/dL (8.4-10.2)
[2016-12-12] MEDS ORDERED: COREG6.25 M1 PO (01:56)
[2016-12-12] MEDS ORDERED: ELLIPTA INH (02:15)
[2016-12-12 02:16] LABS: CALCIUM SERUM 8.1 mg/dL (8.4-10.2); MAGNESIUM 1.7 mg/dL (1.6-3.0)
[2016-12-12 02:18] LABS: CK TOTAL 17 IU/L (36-174)
[2016-12-12 07:48] LABS: CK TOTAL 15 IU/L (36-174)
[2016-12-12 12:04] LABS: MEAN CORPUSCULAR HEMOGLOBIN 28.7 PG (28-34); MEAN CORPUSCULAR HGB CONC 31.8 g/dL (30-36); MEAN PLATELET VOLUME 8.7 FL (6.5-11.5); RED BLOOD COUNT 4.89 X10e (3.90-5.60); RED CELL DISTRIBUTION WIDTH 16.1 % (11.0-15.5); WHITE BLOOD COUNT 17.9 X10e3 (4.0-10.5)
[2016-12-12 12:11] LABS: CALCIUM SERUM 8.6 mg/dL (8.4-10.2); GLOM FILT RATE Estimated 90.5 mL/min (>60); MAGNESIUM 1.8 mg/dL (1.6-3.0)
[2016-12-12 12:15] LABS: POTASSIUM 5.5 mmol/L (3.5-5.1)
[2016-12-12 16:48] LABS: BUN/CREATININE RATIO 32.22; CALCIUM SERUM 8.6 mg/dL (8.4-10.2); CREATININE SERUM 0.9 mg/dL (0.6-1.4); GLOM FILT RATE Estimated 102.8 mL/min (>60); POTASSIUM 5.4 mmol/L (3.5-5.1)
[2016-12-12 20:48] LABS: URINE APPEARANCE CLEAR; URINE BILIRUBIN NEG (NEG); URINE BLOOD NEG (NEG); URINE COLOR YELLOW; URINE GLUCOSE NEG (NEG); URINE KETONE NEG (NEG); URINE LEUKOCYTE ESTERASE NEG (NEG); URINE NITRATE NEG (NEG); URINE PROTEIN NEG (NEG); URINE SPECIFIC GRAVITY 1.006 (1.003-1.035); URINE UROBILINOGEN 0.2 MG/DL (NEG)
[2016-12-13 09:46] LABS: HEMATOCRIT 41.5 % (38.0-50.0); HEMOGLOBIN 13.1 gm/dL (13.0-16.0); MEAN CELL VOLUME 89.6 FL (83-96); MEAN CORPUSCULAR HEMOGLOBIN 28.4 PG (28-34); MEAN CORPUSCULAR HGB CONC 31.7 g/dL (30-36); MEAN PLATELET VOLUME 8.4 FL (6.5-11.5); RED BLOOD COUNT 4.63 X10e (3.90-5.60); WHITE BLOOD COUNT 19.1 X10e3 (4.0-10.5)
[2016-12-13 10:14] LABS: BUN/CREATININE RATIO 28.88; CALCIUM SERUM 8.6 mg/dL (8.4-10.2); CREATININE SERUM 0.9 mg/dL (0.6-1.4); GLOM FILT RATE Estimated 102.8 mL/min (>60)
[2016-12-13 10:16] LABS: POTASSIUM 5.6 mmol/L (3.5-5.1)
[2016-12-13 16:19] LABS: CREATININE SERUM 0.8 mg/dL (0.6-1.4); GLOM FILT RATE Estimated 107.9 mL/min (>60)
[2016-12-14 06:08] LABS: HEMOGLOBIN 12.6 gm/dL (13.0-16.0); MEAN CORPUSCULAR HEMOGLOBIN 28.4 PG (28-34); MEAN CORPUSCULAR HGB CONC 31.5 g/dL (30-36); MEAN PLATELET VOLUME 8.3 FL (6.5-11.5); RED BLOOD COUNT 4.44 X10e (3.90-5.60); RED CELL DISTRIBUTION WIDTH 16.1 % (11.0-15.5); WHITE BLOOD COUNT 16.7 X10e3 (4.0-10.5)
[2016-12-14 06:29] LABS: BUN/CREATININE RATIO 22.22; CALCIUM SERUM 7.9 mg/dL (8.4-10.2); CREATININE SERUM 0.9 mg/dL (0.6-1.4); GLOM FILT RATE Estimated 102.8 mL/min (>60); POTASSIUM 4.6 mmol/L (3.5-5.1)
[2016-12-15 08:25] LABS: BUN/CREATININE RATIO 21.25; CREATININE SERUM 0.8 mg/dL (0.6-1.4); GLOM FILT RATE Estimated 107.9 mL/min (>60); POTASSIUM 4.4 mmol/L (3.5-5.1)
[2016-12-15] MEDS ORDERED: PREDNISONE PO (13:49)
[2016-12-15] MEDS ORDERED: TRAMADOL HCL50 M2 PO (13:50)
[2016-12-15] MEDS ORDERED: KEFLEX500 MG PO (13:50)
[2016-12-15] MEDS ORDERED: LASIX20 MG PO (14:05)
== END 2016-12-15 15:35 | disposition home or self-care (01) | DRG 191 ==
LOC: CED 16:57 → CEDOF 21:40 → C5B 12-12 00:27
PROVIDERS: Emergency Medicine; Internal Medicine; Internal Medicine Endocrinology, Diabetes & Metabolism
PROC: B32TYZZ Computerized Tomography (CT Scan) of Left Pulmonary Artery using Other Contrast (ICD-10-PCS; principal; 2016-12-11)
PROC: B32SYZZ Computerized Tomography (CT Scan) of Right Pulmonary Artery using Other Contrast (ICD-10-PCS; 2016-12-11)
DX: J44.1 Chronic obstructive pulmonary disease with (acute) exacerbation (principal); Z68.42 Body mass index [BMI] 45.0-49.9, adult; J96.10 Chronic respiratory failure, unspecified whether with hypoxia or hypercapnia; I11.0 Hypertensive heart disease with heart failure; I95.9 Hypotension, unspecified; I50.22 Chronic systolic (congestive) heart failure; Z99.81 Dependence on supplemental oxygen; E66.01 Morbid (severe) obesity due to excess calories; F32.9 Major depressive disorder, single episode, unspecified; I25.5 Ischemic cardiomyopathy; Z95.810 Presence of automatic (implantable) cardiac defibrillator; Z95.2 Presence of prosthetic heart valve; Z95.5 Presence of coronary angioplasty implant and graft; Z90.49 Acquired absence of other specified parts of digestive tract; I25.10 Atherosclerotic heart disease of native coronary artery without angina pectoris; F17.210 Nicotine dependence, cigarettes, uncomplicated; G47.33 Obstructive sleep apnea (adult) (pediatric); E83.51 Hypocalcemia; K59.00 Constipation, unspecified; R07.89 Other chest pain
CPT/HCPCS: 36415; 71010; 71275; 80048; 80076; 81003; 82310; 82550; 82553; 83605; 83735; 83880; 84484; 85025; 85027; 87040; 93005; 94640; 94660; 94760; 96361; 96374; 96375; 97116; 97162; 99291; J0610; J1650; J1940; J2020; J2920; J2930; Q9967

== ENCOUNTER 2017-01-03 13:36 | Inpatient (IN) | payer OTHER ==
[~2017-01-03] VITALS: Ht 165.1 cm; Wt 137.0 kg
--- NOTE | ~2017-01-03 | EKG ---
PATIENT: ASHLEY MEJIA UNIT #: [id number] Ventricular Rate: 113 BPM Atrial Rate: 113 BPM P-R Interval: 188 ms QRS Duration: 140 ms Q-T Interval: 316 ms QTC Calculation(Bezet): 433 ms P [place]: 65 degrees Calculated R [place]: 71 degrees Calculated T [place]: 47 degrees Diagnosis Line: ?? Sinus tachycardia Diagnosis Line: Right bundle branch block Diagnosis Line: Septal infarct (cited on or before 04-JAN-2017) Diagnosis Line: Abnormal ECG Diagnosis Line: Poor data quality Diagnosis Line: When compared with ECG of 11-DEC-2016 17:31, Diagnosis Line: no new changes noted Diagnosis Line: Confirmed by WINDY CAR, NICOLE ([id number]) on Diagnosis Line: 01/06/2017 12:16:30 PM INTERPRETING MD: NUBIA
--- NOTE | ~2017-01-03 | CR72 ---
[facility] A Service of [facility] & [facility] RADIOLOGY TEXT RESULTS PATIENT: ASHLEY MEJIA LOCATION: [address] : [birth year] UNIT #: [id number] AGE: [address]: Jacek Nolen MD SEX: M ORDER DR: [id number] [facility] [address] [facility] [address] [place], [place] [address] [id number] I MR#: [id number] Acc #: [id number] NAME: ASHLEY MEJIA : 1970 SEX: M STUDY DATE/TIME: 01/14/2017 17:03 UNIT: [facility] ROOM: [facility] STUDY DESCRIPTION: CR Chest Single View Portable Attending Physician: Jacek Nolen Jr., M.D. Ordering Physician: David Lozano M.D. Primary Care Physician: [facility] IMAGING REPORT This report is preliminary unless electronic signature is present EXAM Portable chest x-ray 01/14/2017 HISTORY Status post intubation. Short of air. FINDINGS AP radiograph of the chest is presented. Comparison 01/13/2017. Endotracheal tube terminates 5.6 cm above the ashley. It terminates at about the T2 vertebral body level. For placement in the mid thoracic trachea, it could be advanced about 2-3 cm and reassessed radiographically. The right internal jugular central venous catheter is unchanged. Status post median sternotomy and CABG. Cardiac pacemaker unchanged. Stable cardiac enlargement. Ongoing pulmonary vascular congestion with pulmonary vascular prominence. There are increased interstitial markings in the central lung zones and there is probably some perihilar patchy airspace disease. Appearance suggests cardiogenic pulmonary edema with interstitial and airspace components. There is ill-defined left lateral costophrenic sulcus which is unchanged. This may reflect pleural thickening or unchanged pleural effusion. If this is pleural fluid, it could be at least partially loculated. There is no pneumothorax. Given lower lung volumes than on the prior study, the overall appearance of the pulmonary parenchyma is probably not significantly changed. Note also made of prior cardiac valve replacement. Dictated by... Carlos Durán M.D. THIS IS AN ELECTRONICALLY VERIFIED REPORT Carlos Durán M.D. at 01/15/2017 6:04 PM ISAIAH/grisel [facility]. [facility] A Service of [facility] & [facility] RADIOLOGY TEXT RESULTS PATIENT: ASHLEY MEJIA LOCATION: [address] : [birth year] UNIT #: [id number] AGE: [address]: Jacek Nolen MD SEX: M ORDER DR: TD: 01/15/2017 06:23 JOB #: [id number] MEDICAL IMAGING REPORT Page 1 of 1 COPY
--- NOTE | ~2017-01-03 | CR72 ---
[facility] A Service of [facility] & [facility] RADIOLOGY TEXT RESULTS PATIENT: ASHLEY MEJIA LOCATION: [address] : [birth year] UNIT #: [id number] AGE: [address]: Jacek Nolen MD SEX: M ORDER DR: [id number] [facility] [address] [facility]. [place], [place] [address] [id number] I MR#: [id number] #: [id number] NAME: ASHLEY MEJIA : 1970 SEX: M STUDY DATE/TIME: 01/05/2017 5:34 [facility] STUDY DESCRIPTION: CR Chest Single View Portable Attending Physician: Jacek Nolen Jr., M.D. Ordering Physician: Chuy Carty M.D. MEDICAL IMAGING REPORT This report is preliminary unless electronic signature is present EXAM AP view of the chest COMPARISON January 03, 2017 and December 11, 2016. HISTORY 46-year-old male with dyspnea and left-sided chest pain for the last 10-15 days intermittently. History of CABG. FINDINGS The exam is limited due to nonstandard positioning. The patient could not cooperate with positioning due to pain per technologist report. Internal jugular catheter is again noted, in grossly stable position near the confluence of the brachiocephalic vein and SVC. Single-lead left chest pacemaker/defibrillator device appears stable. Single cardiac valvular prosthesis appears stable when allowing for differences in patient positioning. Changes of CABG noted. No evidence of sternotomy dehiscence. No evidence of pneumothorax. Although the appearance is not significantly changed, left basilar atelectasis, pneumonia or pleural effusion cannot be excluded, although evaluation of left lung base is limited by overlapping heart shadow. Interstitial prominence throughout the right lung is grossly stable and I suspect that there is interstitial prominence throughout the left lung which is not well evaluated due to shifting of the heart over the left chest. Findings would seem to reflect mild pulmonary vascular congestion/interstitial edema which is stable. IMPRESSION 1. Allowing for differences in positioning, interstitial prominence of the lungs is likely stable, likely reflecting mild pulmonary vascular congestion/interstitial edema. The heart is shifted over the left STS. [facility] A Service of [facility] & [facility] RADIOLOGY TEXT RESULTS PATIENT: ASHLEY MEJIA LOCATION: [facility]-03 : [birth year] UNIT #: [id number] AGE: [address]: Jacek Nolen MD SEX: M ORDER DR: lung base due to positioning and left basilar atelectasis, pneumonia and/or pleural effusion cannot be excluded, although the appearance is not appreciably changed from 2 days ago. Dictated by... Darrel Jaquez M.D. THIS IS AN ELECTRONICALLY VERIFIED REPORT Darrel Jaquez M.D. at 01/12/2017 3:54 PM BLM/pcl TD: 01/05/2017 10:33 JOB #: [id number] MEDICAL IMAGING REPORT Page 1 of 1 COPY
--- NOTE | ~2017-01-03 | CO ---
Unit #: [id number] #: [id number] Patient: ASHLEY MEJIA [id number] [address] [address] [id number] I MR#: [id number] NAME: ASHLEY MEJIA ROOM: [facility] Age: 46 Sex: M Admission Date: 01/04/2017 : 1970 Attending Physician: Jacek Nolen Jr., M.D. Primary Care Physician: [facility] Consultation Date: 01/04/2017 CONSULTATION REPORT HISTORY OF PRESENT ILLNESS This 46-year-old white male patient who is being followed by , has been complaining of generalized abdominal pain and constipation for about four days. The patient has incarcerated hernia, and he needs surgery. This morning, the patient became hypotensive and was transferred to CCU. He has a history of CABG and a tissue aortic valve replacement in 2010. The patient had ischemic cardiomyopathy, ejection fraction in the past has been 20% to 25%. He also has history of nonsustained ventricular tachycardia. He has an AICD. The patient has shortness of breath even on minimal exertion. No PND or orthopnea. He denies any chest pains at this time. On September 2016, ejection fraction was 30% to 35%, phvo-ip-bdqroupf mitral and moderate pulmonic regurgitation noted. Moderate tricuspid regurgitation noted. His heart surgery was at the [facility] [place] [facility]. He has hypertension, hyperlipidemia, exogenous obesity, right bundle-branch block, and sleep apnea. He is an active smoker. PAST SURGICAL HISTORY Include laparoscopic cholecystectomy and ventral hernia repair. PERSONAL HISTORY He smokes a pack of cigarettes per day. He is mostly in the wheelchair. FAMILY HISTORY Father of heart attack in his 40s. ALLERGIES No drug allergies. HOME MEDICATIONS Include: 1. Ultram. 2. Coreg. 3. Aldactone. 4. Pravachol. 5. Vistaril. 6. Zestril. 7. Bumex. 8. Lasix. 9. Ventolin. REVIEW OF SYSTEMS No fever, chills, night sweats, or weight loss. All others negative except as mentioned above. Unit #: [id number] #: [id number] Patient: ASHLEY MEJIA PHYSICAL EXAMINATION VITAL SIGNS: Blood pressure 80/60, heart rate 102 per minute and regular, and respiratory rate 18 per minute. GENERAL APPEARANCE: The patient is well developed. The patient is obese. HEENT: Oral mucosa without cyanosis or pallor. No xanthelasma. NECK: No JVD. CARDIOVASCULAR: Regular rate and rhythm. PMI is nondisplaced on auscultation. S1 and S2 normal. No S3, S4, murmur, rubs, or clicks noted. VASCULAR: Carotid pulses are brisk without bruit. Abdominal aorta without bruit. Femoral and pedal pulses are normal with normal pulse amplitude. LUNGS: Few scattered rales noted. No wheezing noted. Mild accessory muscle use noted. ABDOMEN: Soft and nontender. No hepatosplenomegaly. RECTAL: Deferred. EXTREMITIES: Warm and dry. No cyanosis or clubbing. 1+ pedal edema. MUSCULOSKELETAL: No scoliosis. DERMATOLOGIC: No stasis dermatitis. NEUROLOGIC: Alert and oriented x3. Pleasant affect. LABORATORY DATA Glucose 102, BUN 25, creatinine 1.5, sodium 134, and potassium 4.1. WBC 10.8, hemoglobin 10.8, hematocrit is 32.9, and platelet count 139,000. IMPRESSION 1. Hypotension, possible cardiogenic shock. 2. History of severe ischemic cardiomyopathy, status post automatic implantable cardioverter defibrillator. 3. History of coronary artery bypass grafting and a tissue aortic valve replacement in 2010. 4. Incarcerated abdominal hernia. 5. Hypertension. 6. Hyperlipidemia. 7. Obesity. 8. Sleep apnea. PLAN At this time, we will treat him with Levophed. We will stabilize him before surgery. Thank you for letting me to participate in his care. Dictated by... Chuy Carty M.D. YAHAIRA/bryan TD: 01/07/2017 04:51 JOB #: [id number] Unit #: [id number] #: [id number] Patient: ASHLEY MEJIA CONSULTATION REPORT Page 1 of 1 X Chuy Carty MD CONSULTATION REPORT
--- NOTE | ~2017-01-03 | EKG ---
PATIENT: ASHLEY MEJIA UNIT #: [id number] Ventricular Rate: 132 BPM Atrial Rate: 132 BPM P-R Interval: 170 ms QRS Duration: 130 ms Q-T Interval: 304 ms QTC Calculation(Bezet): 450 ms P [place]: 82 degrees Calculated R [place]: 66 degrees Calculated T [place]: 54 degrees Diagnosis Line: Sinus tachycardia Diagnosis Line: Right bundle branch block Diagnosis Line: Septal infarct (cited on or before 04-JAN-2017) Diagnosis Line: Abnormal ECG Diagnosis Line: When compared with ECG of 04-JAN-2017 08:53, Diagnosis Line: Serial changes of Septal infarct Present Diagnosis Line: Confirmed by MASON CHASE MD ([id number]) on 01/07/2017 Diagnosis Line: 7:28:14 PM INTERPRETING MD: RENA CAR
--- NOTE | ~2017-01-03 | CO ---
Unit #: [id number] #: [id number] Patient: ASHLEY MEJIA [id number] [facility]. [place], [place] [address] [id number] I MR#: [id number] NAME: ASHLEY MEJIA ROOM: [facility] Age: 46 Sex: M Admission Date: 01/03/2017 : 1970 Attending Physician: Jacek Nolen Jr., M.D. [facility] Consultation Date: 01/05/2017 CONSULTATION REPORT REASON FOR CONSULTATION Evaluate for sepsis. HISTORY OF PRESENT ILLNESS This is a 46-year-old obese male who is currently on a BiPAP mask, and it is difficult to obtain some history. Patient was recently at [facility], and details of this admission are unclear, but he believes it may have been for pneumonia. Patient now came to the emergency room with abdominal pain with some mild vomiting and nausea. Patient was admitted to the hospital after a CT scan was consistent with incarcerated ventral hernia, and Surgery was going to evaluate him for OR. While patient was on the floor, he developed some hypotension, and he was moved to the ICU. He is now maintained on a Elijah-Synephrine drip. He developed some tachycardia as well with some diaphoresis. He has been added on a dobutamine drip as well. Patient had a normal lactic acid and procalcitonin level; however, there is concern for developing abdominal sepsis, and ID was asked to evaluate. In discussion with the patient, he denies ever having any fever. However, in the emergency room, he had a T-max of 101 degrees Fahrenheit which has since improved. He reports that he sweats all the time, and this is a chronic condition that is not new. He denies any chills, headaches, shortness of breath, or productive sputum. He does report he does have some abdominal pain that is located midline at the place of his hernia. He denies any significant diarrhea, nonhealing wounds, or swelling of his extremities. PAST MEDICAL HISTORY Mainly obtained via the chart due to him being on BiPAP. 1. Cardiac disease with valve replacement. 2. Congestive heart failure. 3. Hypertension. 4. Respiratory problems with moderate to severe chronic obstructive pulmonary disease, not on home oxygen therapy. 5. Gastroesophageal reflux disease. 6. Depression. 7. Hypercholesterolemia. 8. Asthma. PAST SURGICAL HISTORY 1. Valve replacement as previously stated above. 2. Stent. 3. Defibrillator. 4. Coronary artery bypass graft. Unit #: [id number] #: [id number] Patient: ASHLEY MEJIA ALLERGIES No known allergies. MEDICATIONS Patient is currently on cefepime and Flagyl. For other medications, please refer to patient's MAR. He is also on a Elijah-Synephrine drip and dobutamine drip. SOCIAL HISTORY Per the chart, he has positive tobacco, no alcohol abuse, and IV drug use is unknown. REVIEW OF SYSTEMS Negative except as previously mentioned in the History of Present Illness. PHYSICAL EXAMINATION VITAL SIGNS: Temperature 99.4 with a T-max of 101 degrees Fahrenheit, pulse is 113, blood pressure is 112/74, and respiratory rate is 19. GENERAL: This is an awake male who is currently on BiPAP with some diaphoresis. HEENT: Pupils are equal. NECK: Supple. CARDIOVASCULAR: S1 and S2 with tachycardia. PULMONARY: Diminished throughout with a few rales. ABDOMEN: Decreased bowel sounds. There is warmth noted near his ventral hernia with significant tenderness when trying to reduce the hernia. There is no tenderness in other areas of the abdomen. EXTREMITIES: No clubbing, cyanosis, or edema. He has an IJ line in place without any evidence of cellulitis. DIAGNOSTIC STUDIES LABORATORY: BUN 17, creatinine 0.8 which is improved from a creatinine of 2.1, sodium 134, potassium 4.5, chloride 102, CO2 of 27, bilirubin 0.2, AST 14, and ALT 10. Amylase 58 and lipase 24. BNP 1335. Lactic acid 1 which is improved from 1.6 on admission. Procalcitonin level is 0.15. White blood cell count is 12.8 which is improved from 14.8 on admission, hemoglobin 10.3, hematocrit 31.9, and platelets 150,000. Urinalysis is unremarkable. Microbiology data: Blood cultures are currently pending. Outside hospital blood cultures were negative to date. IMAGING: CT scan of the abdomen and pelvis, please see full report for complete details. In summary, the CT scan of the chest does not show any cardiopulmonary findings, and there is some emphysema. CT scan of the abdomen shows two anterior abdominal wall hernias: One is midline of the supraumbilical anterior abdominal wall that contains fat with extensive inflammatory stranding suggestive of incarceration, and second umbilical hernia that contains fat as well. IMPRESSION AND PLAN This is a 46-year-old male who was recently in the hospital for presumed pneumonia, however, will obtain the Discharge Summary at the outside hospital, and now is admitted for abdominal pain and found to have existing ventral hernias now incarcerated. Surgery is following and plan to go to operating room. However, patient has developed some hypotension, tachycardia, and some abnormal arterial blood gases. At this time, patient's lactic acid and procalcitonin do not support sepsis. However, with recent admission to an outside hospital and the [facility] Unit #: [id number] #: [id number] Patient: ASHLEY MEJIA sepsis, would recommend to continue patient on antibiotic therapy but change to Zosyn 3.375 grams IV every eight hours. Will also give one dose of vancomycin as well. Will have the nursing staff call with any positive blood cultures. Will obtain the Discharge Summary from the outside hospital and check routine lab work in the morning. This case was discussed with Dr. Rafael Solomon at the time of this dictation. Thank you for allowing us to participate in the care of this patient, and further recommendations will follow pending patient's clinical course. Dictated by... Leana Brownlee A.P.R.N. for Cuauhtemoc Del Angel/hlilary TD: 01/05/2017 16:21 JOB #: [id number] CONSULTATION REPORT Page 1 of 1 X X CONSULTATION REPORT
--- NOTE | ~2017-01-03 | CR72 ---
[facility] A Service of [facility] & [facility] RADIOLOGY TEXT RESULTS PATIENT: ASHLEY MEJIA LOCATION: [facility] 466- : [birth year] UNIT #: [id number] AGE: [address]: Jacek Nolen MD SEX: M ORDER DR: [id number] [facility] [address] [facility] [address] [place], [place] [address] [id number] I MR#: [id number] Acc #: [id number] NAME: ASHLEY MEJIA : 1970 SEX: M STUDY DATE/TIME: 01/12/2017 04:25 [facility] STUDY DESCRIPTION: CR Chest Single View Portable Attending Physician: Jacek Nolen Jr., M.D. Ordering Physician: Rufino Cabrera M.D. Primary Care Physician: [facility] MEDICAL IMAGING REPORT This report is preliminary unless electronic signature is present EXAM Portable chest, 01/12 at 04:25 INDICATION Hypotension, shortness of air and tachycardia. FINDINGS AP portable chest is compared with 01/09/2017. Cardiomegaly is stable. There is some mild vascular congestion. Scattered granulomatous calcifications are present. There is continued left side pleural fluid. No pneumothorax. Dictated by... Derick Crowell Jr., M.D. THIS IS AN ELECTRONICALLY VERIFIED REPORT Derick Crowell Jr., M.D. at 01/12/2017 9:24 PM LEDA/kingsley TD: 01/12/2017 16:07 JOB #: [id number] MEDICAL IMAGING REPORT Page 1 of 1 COPY
--- NOTE | ~2017-01-03 | CR72 ---
[facility] A Service of [facility] & [facility] RADIOLOGY TEXT RESULTS PATIENT: ASHLEY MEJIA LOCATION: [address] : [birth year] UNIT #: [id number] AGE: [address]: Jacek Nolen MD SEX: M ORDER DR: [id number] [facility] [address] [facility]. [place], [place] [address] [id number] I MR#: [id number] #: [id number] NAME: ASHLEY MEJIA : 1970 SEX: M STUDY DATE/TIME: 01/09/2017 5:17 UNIT: [facility] ROOM: [facility] STUDY DESCRIPTION: CR Chest Single View Portable Attending Physician: Jacek Nolen Jr., M.D. Ordering Physician: Rufino Cabrera M.D. Primary Care Physician: [facility] MEDICAL IMAGING REPORT This report is preliminary unless electronic signature is present EXAM Portable chest. INDICATIONS Chest pain and shortness of air today. PROCEDURE Frontal view chest. COMPARISON 01/07/2017 FINDINGS Cardiomegaly and left pleural effusion are stable. No new dense consolidation or visible pneumothorax. IMPRESSION Stable. Dictated by... Pete Martinez M.D. THIS IS AN ELECTRONICALLY VERIFIED REPORT Pete Martinez M.D. at 01/09/2017 9:53 PM EED/lilliana TD: 01/09/2017 12:09 JOB #: [id number] MEDICAL IMAGING REPORT Page 1 of 1 COPY
--- NOTE | ~2017-01-03 | CR72 ---
[facility] A Service of [facility] RADIOLOGY TEXT RESULTS PATIENT: ASHLEY MEJIA LOCATION: [facility] 473-01 : [birth year] UNIT #: [id number] AGE: [address]: Jacek Nolen MD SEX: M ORDER DR: [id number] [facility] [address] [place], [place] [address] [id number] I MR#: [id number] Acc #: [id number] NAME: ASHLEY MEJIA : 1970 SEX: M STUDY DATE/TIME: 01/16/2017 6:26 UNIT: [facility] ROOM: [facility] STUDY DESCRIPTION: CR Chest Single View Portable Attending Physician: Jacek Nolen Jr., M.D. Ordering Physician: Rufino Cabrera M.D. Primary Care Physician: [facility] IMAGING REPORT This report is preliminary unless electronic signature is present EXAM Frontal chest, 01/16/2017. INDICATIONS Respiratory failure in a 46-year-old male, hypotension. COPD, congestive heart failure, tobacco abuse. History of valve replacement. TECHNIQUE Frontal chest compared with 01/15/2017. FINDINGS The patient has been extubated. The right-sided central line from a neck approach is unchanged in this patient status post median sternotomy. Heart valve replacement and pacemaker/defibrillator placement. Cardiac silhouette enlarged, but stable. Bronchovascular crowding favored over mild central vascular congestion. Opacities in the left lung base are unchanged along with blunting of the left CP angle, which may reflect a chronic effusion or chronic pleural thickening. No pneumothorax. IMPRESSION 1. Removal of the ET tube. No pneumothorax. 2. No other significant interval change from 01/15/2017. Dictated by... Fausto Fiore M.D. THIS IS AN ELECTRONICALLY VERIFIED REPORT Fausto Fiore M.D. at 01/16/2017 5:12 PM Samm TD: 01/16/2017 08:27 JOB #: [id number] [facility] A Service of [facility] RADIOLOGY TEXT RESULTS PATIENT: ASHLEY MEJIA LOCATION: [facility] 473-01 : [birth year] UNIT #: [id number] AGE: [address]: Jacek Nolen MD SEX: M ORDER DR: MEDICAL IMAGING REPORT Page 1 of 1 COPY
--- NOTE | ~2017-01-03 | CO ---
Unit #: [id number] #: [id number] Patient: ASHLEY MEJIA [id number] [address] [place], [place] [address] [id number] I MR#: [id number] NAME: ASHLEY MEJIA ROOM: [facility] Age: 46 Sex: M Admission Date: 01/04/2017 : 1970 Attending Physician: Jacek Nolen Jr., M.D. Primary Care Physician: [facility] CONSULTATION REPORT We were asked to see him for COPD and sepsis. HISTORY OF PRESENT ILLNESS Mr. Mejia is a 46-year-old male followed by us who presents with nausea, vomiting, diarrhea. He complained of just feeling badly also. He has had a cough with brown sputum, although he says it is not all that different. He says every time he coughs quite a bit, he throws up. He did smoke, but he basically quit about a month ago and then last cigarette actually was maybe 5 days ago, but was only one. PAST MEDICAL HISTORY Significant for obstructive sleep apnea, ischemic cardiomyopathy, ejection fraction of 35%, pneumonia, hypertension, hyperlipidemia, COPD, chronic hypoxemia, requiring oxygen, depression, right bundle-branch block, morbid obesity, hyperlipidemia, hypertension. PAST SURGICAL HISTORY Include coronary artery bypass grafting in 2010, laparoscopic cholecystectomy in 2017. I believe he has had ventral hernia repair before. MEDICATIONS On admission had included Ultram 50 mg p.o. q.6, Coreg 6.25 mg p.o. b.i.d., Aldactone 25 mg p.o. daily, Pravachol 20 mg p.o. at bedtime, Vistaril 25 mg t.i.d., Zestril 10 mg p.o. daily, Bumex 1 mg p.o. b.i.d., Lasix 40 mg p.o. b.i.d., Ventolin should be 2 puffs q.4h p.r.n., albuterol/Atrovent mini nebs q.6h. p.r.n. ALLERGIES No known drug allergies. SOCIAL HISTORY He did smoke and at most, he smoked a pack a day, probably has not done that at least in a month, may be longer than that. He has cut down and he stated quit, but then he did smoke maybe one cigarette about a week ago. FAMILY HISTORY Negative for lung disease definitely, although he thought maybe his father could have had something wrong with his lungs. REVIEW OF SYSTEMS He has nausea and vomiting. He has had leg swelling. He has felt poorly. He has a cough with brown sputum. He has had sharp stabbing chest pain. All other systems are negative except as mentioned. Unit #: [id number] #: [id number] Patient: ASHLEY MEJIA PHYSICAL EXAMINATION GENERAL: He presents as a middle-aged male, who is obese, in no acute distress. VITAL SIGNS: Temperature 97.7, pulse 96, respirations 15, blood pressure 92/50, saturation 97% on 2.5 L nasal cannula. NECK: Thick and no adenopathy. He has a right IJ line. LUNGS: Reveals his breathing is not labored. He has a little bit of inspiratory rhonchi at the bases. HEART: Regular. ABDOMEN: Soft and tender in midline. He has some old midline scars. He does have bowel sounds present. EXTREMITIES: Maybe trace edema. NEUROLOGIC: He is awake and alert. DIAGNOSTIC STUDIES IMAGING STUDIES: Chest x-ray to my exam reveals increased interstitial markings bilaterally, which I think is nonspecific. This was read as no pneumothorax and otherwise stable. He had a CT of abdomen and pelvis, which is dated 01/03/2017 with incompletely visualized anterior midline abdominal wall hernia containing only fat. There was extensive inflammatory stranding and haziness in the herniated fat, which is suggesting incarceration and evolving fat necrosis. There is a second umbilical hernia containing fat and this has evidence of fat necrosis also. LABORATORY RESULTS: Blood gas on 3 L, pH 7.32, pCO2 of 49, pO2 of 88. Serum chemistries; BUN 25, creatinine 1.5, sodium was 134, bicarb was 26. BNP was 68, but that was 12/11/2016. He had a lactic acid of 0.7, previous was 1.6. White blood cell count was 10.8, H and H of 10.8 and 32, platelets 139,000. IMPRESSION 1. Sepsis although technically lactic acid really isn't elevated, but he does have hypotension. 2. chronic obstructive pulmonary disease, not necessarily worse. 3. Cardiomyopathy with ejection fraction about 35%. 4. Two incarcerated ventral hernias, each containing fat. PLAN Only careful IV fluids. He is on dangelo, which is fine. I have suggested cefepime and Flagyl for infection. I would be okay with surgery if necessary. Thank you very much for allowing me to participate in the care of this patient. Dictated by... Cuauhtemoc Lopez/bryan TD: 01/07/2017 00:36 JOB #: [id number] CC: Jacek Nolen Jr, M.D. Unit #: [id number] #: [id number] Patient: ASHLEY MEJIA CONSULTATION REPORT Page 1 of 1 X [place] MD X CONSULTATION REPORT
--- NOTE | ~2017-01-03 | BMI ---
[facility] Nutrition Therapy DATE: 01/04/17 Patient: ASHLEY MEJIA Physician: NAYA Address: [address] Room/Bed: [address] [place] [address], Zip: [place] [address] Admit Date: 01/03/17 Date of : [birth year] Height: 5 5 Weight: 290 131.54 HIGH BMI NOTE: DX: 46 Y.O. MALE ADMITTED FOR [facility]THROPOMETR[facility]: 5'5", WT: 290# (132 KG), BMI: 48.3 DIET: REGULAR RECOMMENDATIONS: 1. RECOMMEND TO CHANGE CURRENT DIET ORDER TO HEALTHY HEART TO PROMOTE GRADUAL WEIGHT LOSS TOWARDS HEALTHY BMI (19.0-25.0) OR +/-10%IBW RD WILL F/U PER PROTOCOL Respectfully, LOUIE MEDINA MS, RD, LD Food and Nutritional Services [facility] cc: client file
--- NOTE | ~2017-01-03 | CR72 ---
[facility] A Service of [facility] & [facility] RADIOLOGY TEXT RESULTS PATIENT: ASHLEY MEJIA LOCATION: [address] : [birth year] UNIT #: [id number] AGE: [address]: Jacek Nolen MD SEX: M ORDER DR: [id number] [facility] [address] [facility]. [place], [place] [address] [id number] I MR#: [id number] Acc #: [id number] NAME: AHSLEY MEJIA : 1970 SEX: M STUDY DATE/TIME: 01/07/2017 6:03 UNIT: [facility] ROOM: [facility] STUDY DESCRIPTION: CR Chest Single View Portable Attending Physician: Jacek Nolen Jr., M.D. Ordering Physician: Rufino Cabrera M.D. Primary Care Physician: [facility] MEDICAL IMAGING REPORT This report is preliminary unless electronic signature is present EXAM Portable chest INDICATION Chest pain and shortness of breath for 4 days. COMPARISON Yesterday FINDINGS Support lines and devices are stable. Stable small left pleural effusion. Stable pulmonary vascularity and interstitial prominence. Heart size stable. IMPRESSION No significant change in the appearance of the chest. Dictated by... Stanislav Vanessa M.D. THIS IS AN ELECTRONICALLY VERIFIED REPORT Stanislav Vanessa M.D. at 01/08/2017 5:00 PM Anne TD: 01/07/2017 14:06 JOB #: [id number] MEDICAL IMAGING REPORT Page 1 of 1 COPY
--- NOTE | ~2017-01-03 | CR72 ---
[facility] A Service of [facility] & [facility] RADIOLOGY TEXT RESULTS PATIENT: ASHLEY MEJIA LOCATION: [address] : [birth year] UNIT #: [id number] AGE: [address]: Jacek Nolen MD SEX: M ORDER DR: [id number] [facility] [address] [facility]. [place], [place] [address] [id number] I MR#: [id number] Acc #: [id number] NAME: ASHLEY MEJIA : 1970 SEX: M STUDY DATE/TIME: 01/07/2017 16:41 UNIT: [facility] ROOM: [facility] STUDY DESCRIPTION: CR Chest Single View Portable Attending Physician: Jacek Nolen Jr., M.D. Ordering Physician: Selvin Woody M.D. Primary Care Physician: [facility], MEDICAL IMAGING REPORT This report is preliminary unless electronic signature is present EXAM Portable chest INDICATIONS Chest pain and shortness of air for 4 days. COMPARISON 01/07/2017 at 6 a.m. FINDINGS Three views of the chest were obtained, all in the AP position. There appears to be a hcxjy-xx-cfjyzwic left pleural effusion. It is unchanged from earlier today. The heart size is enlarged and there are sternotomy wires and a single-lead pacemaker present. The right lung is clear. Dictated by... Marc Holman M.D. THIS IS AN ELECTRONICALLY VERIFIED REPORT Marc Holman M.D. at 01/08/2017 7:08 AM FEL/psc TD: 01/08/2017 02:59 JOB #: [id number] MEDICAL IMAGING REPORT Page 1 of 1 COPY
--- NOTE | ~2017-01-03 | OR ---
Unit #: [id number] #: [id number] Patient: ASHLEY MEJIA [id number] [address] [place], [place] [address] [id number] Joaquim MR#: [id number] NAME: ASHLEY MEJIA ROOM: [facility] Date of Procedure: 01/14/2017 Admission Date: 01/04/2017 Surgeon: Derick Garcia M.D. : 1970 Attending Physician: Jacek Nolen Jr., M.D. Primary Care Physician: [facility] OPERATIVE REPORT PREOPERATIVE DIAGNOSIS Incarcerated ventral hernia x2. POSTOPERATIVE DIAGNOSIS Incarcerated ventral hernia x2. PROCEDURES PERFORMED Exploratory laparotomy, primary repair incarcerated ventral hernia. ANESTHESIA General endotracheal anesthesia. ESTIMATED BLOOD LOSS Less than 30 mL. INDICATIONS FOR PROCEDURE Mr. Mejia is a 46-year-old gentleman with severe comorbid conditions. He was admitted to the hospital because of abdominal pain and he was found to have the incarcerated hernias, but the hernias were incarcerated with fat. Because of his severe comorbid conditions, he was put in the intensive care unit and extensively evaluated by Cardiology and Pulmonology. After he was stabilized, the patient still complained of pain and had a palpable incarcerated incisional hernias. After a long discussion, the patient stated he wanted to proceed with repair because of the discomfort. He was cleared by Cardiology and pulmonology. DESCRIPTION OF PROCEDURE The patient was transported from his hospital room to the operating room, and after induction of general endotracheal anesthesia, he received IV antibiotics per protocol for a person who had a previous valve replacement. He was prepped and draped in usual sterile fashion. At the umbilicus, he had one palpable hernia and in the upper midline, he had a second palpable hernia. A vertical incision was made to include both areas. We dissected the incarcerated hernia sac and hernia out of the soft tissue and dissected down to the fascia. At both sites, the fascial defect was very small and once the hernia sac and the incarcerated fat were excised, I opened this area just to palpate and could not feel any other fascial defects. There was already some mesh in the area. The defects were small enough and his risk of infection was great enough that I irrigated the soft tissue with saline and Betadine and then closed the small defects primarily with interrupted #1 Vicryl sutures. At the umbilicus, an umbilicoplasty was performed. I then closed the soft tissue Unit #: [id number] #: [id number] Patient: ASHLEY MEJIA in layers to prevent or minimize seroma. The skin was closed with sterile skin kayley. The umbilical skin which was very irritated was cleaned with Betadine despite being previously prepped and then after the abdominal wall was cleaned, Neosporin ointment was placed in the umbilical skin and a dry sterile dressing was placed over the operative site. The patient tolerated the procedure well and was transported to recovery in stable condition. There was no family available to discuss the findings with. In recovery, the patient's pulmonary status was such that he will be left on the ventilator to stabilize after anesthesia and readmitted to the intensive care unit. Dictated by... Cuauhtemoc Edwards/bryan TD: 01/14/2017 19:26 JOB #: [id number] OPERATIVE REPORT Page 1 of 1 X Derick Garcia MD X PROCEDURE OPERATIVE NOTE
--- NOTE | ~2017-01-03 | CR72 ---
[facility] A Service of [facility] & [facility] RADIOLOGY TEXT RESULTS PATIENT: ASHLEY MEJIA LOCATION: [id number] : [birth year] UNIT #: [id number] AGE: [address]: Jacek Nolen MD SEX: M ORDER DR: [id number] [facility] [address] [facility]. [place], [place] [address] [id number] I MR#: [id number] Acc #: [id number] NAME: ASHLEY MEJIA : 1970 SEX: M STUDY DATE/TIME: 01/15/2017 04:15 UNIT: CICCU2 ROOM: [facility] STUDY DESCRIPTION: CR Chest Single View Portable Attending Physician: Jacek Nolen Jr., M.D. Ordering Physician: Jacek Nolen Jr., M.D. Primary Care Physician: [facility] MEDICAL IMAGING REPORT This report is preliminary unless electronic signature is present EXAM Portable chest, 01/15 at 04:15 INDICATION Respiratory failure and hypotension. Symptoms for 11 days. FINDINGS AP portable chest is compared with 01/14/2017. ET tube and right IJ line are unchanged. Cardiomegaly is stable. There is persistent small left effusion. There is some mild infiltrate in the left gxs-xw-tgfze lung. There is some vascular congestion. No pneumothorax. Dictated by... Derick Crowell Jr., M.D. THIS IS AN ELECTRONICALLY VERIFIED REPORT Derick Crowell Jr., M.D. at 01/15/2017 9:41 PM LEDA/kingsley TD: 01/15/2017 10:11 JOB #: [id number] MEDICAL IMAGING REPORT Page 1 of 1 COPY
--- NOTE | ~2017-01-03 | EKG ---
PATIENT: ASHLEY MEJIA UNIT #: [id number] Ventricular Rate: 99 BPM Atrial Rate: 99 BPM P-R Interval: 194 ms QRS Duration: 134 ms Q-T Interval: 358 ms QTC Calculation(Bezet): 459 ms P Cassatt: 71 degrees Calculated R Cassatt: 68 degrees Calculated T Cassatt: 53 degrees Diagnosis Line: Normal sinus rhythm Diagnosis Line: Possible Left atrial enlargement Diagnosis Line: Right bundle branch block Diagnosis Line: Abnormal ECG Diagnosis Line: When compared with ECG of 07-JAN-2017 16:53, Diagnosis Line: Questionable change in initial forces of Septal Diagnosis Line: leads Diagnosis Line: Confirmed by SHARON TIM MD ([id number]) on Diagnosis Line: 01/10/2017 8:21:23 AM INTERPRETING VANDANA ATWOOD
--- NOTE | ~2017-01-03 | CT4 ---
[facility] A Service of [facility] RADIOLOGY TEXT RESULTS PATIENT: ASHLEY MEJIA LOCATION: CICCU2 CICCU2-03 : [birth year] UNIT #: [id number] AGE: [address]: Jacek Nolen MD SEX: M ORDER DR: [id number] [facility] [address] [facility]. [place], [place] [address] [id number] I MR#: [id number] Acc #: [id number] NAME: ASHLEY MEJIA : 1970 SEX: M STUDY DATE/TIME: 01/03/2017 14:23 UNIT: C2A ROOM: 239 STUDY DESCRIPTION: CT Abd and Pelv Wo Cont Attending Physician: Jacek Nolen Jr., M.D. Ordering Physician: Selvin Woody M.D. Primary Care Physician: [facility], [facility] MED[facility] IMAGING REPORT This report is preliminary unless electronic signature is present EXAM CT abdomen and pelvis, 01/03/2017. HISTORY Abdominal pain. Diffuse abdomen pain for today. Nausea, vomiting and diarrhea today. TECHNIQUE CT abdomen and pelvis performed without administration of oral or intravascular contrast. This CT exam was performed with one or more of the following radiation dose reduction techniques: automatic exposure control, adjustment of mA and/or kV according to patient size, and iterative reconstruction. COMPARISON 06/25/2016. FINDINGS The lung bases show densely calcified granuloma right middle lobe. No change. There is no acute pulmonary disease at the lung bases. Mild cardiac enlargement. Cardiac pacing lead at the right ventricular level. Prior mitral valve replacement. The liver and spleen show calcified granulomata. No acute-appearing abnormality. Status post cholecystectomy. No biliary dilatation. Pancreas, adrenal glands unremarkable. No renal calculi or obstruction. No cystic or solid mass lesion. CT PELVIS: There is no inguinal adenopathy. The urinary bladder is unremarkable. There is no fluid collection in the pelvis. No pelvic adenopathy. No retroperitoneal adenopathy. The distal esophagus, stomach, small bowel unremarkable. No small bowel dilatation. The appendix is normal. Colon unremarkable. [facility] A Service of [facility] RADIOLOGY TEXT RESULTS PATIENT: ASHLEY MEJIA [id number] [birth year] UNIT #: [id number] AGE: [address]: Jacek Nolen MD SEX: M ORDER DR: There is an incompletely visualized anterior midline abdominal wall hernia. It contains only fat. The visualized portion measures approximately 7.3 cm x 3.7 cm x 7.3 cm. This hernia was present on the prior examination when it contains fat and a knuckle of transverse colon. On the prior examination, there was no evidence of complication. The involved fat is pristine. On the current study, there is haziness and stranding in the herniated fat suggesting incarceration with developing fat necrosis. No associated air or drainable fluid collection. There is haziness and stranding in the subjacent omental fat likely reflecting spread of inflammatory change from the incarcerated hernia. Again there is no intraabdominal free air or fluid collection. There is a second previously demonstrated umbilical hernia. The overall hernia at the umbilicus appears smaller on today's examination measuring approximately 4.8 cm x 3.2 cm x 4.8 cm. Again, on the prior examination the herniated fat was pristine and on today's examination there is extensive haziness and stranding in the umbilical hernia fat suggesting incarceration and developing fat necrosis. Please correlate with clinical examination. Atherosclerotic arterial calcifications. Degenerative changes in the spine. No acute-appearing bony abnormality. IMPRESSION 1. The patient has 2 anterior abdominal wall hernias. One of these is in the midline of the supraumbilical anterior abdominal wall. The hernia contains fat and measures up to 7.3 cm in diameter. On the prior examination, the herniated fat was pristine. On the current study, there is extensive inflammatory stranding and haziness in the herniated fat suggesting incarceration and evolving fat necrosis. Please correlate with clinical examination. There is no associated air or fluid collection. The hernia is not completely visualized. It does not contain any bowel components. On the prior examination it contained a knuckle of transverse colon. 2. There is a second umbilical hernia measuring up to 4.8 cm in diameter. It contains fat as well. On prior study, the fat was pristine and on the current study there is extensive haziness and stranding in the umbilical hernia fat also consistent with incarceration and developing fat necrosis. Again, no drainable fluid collection or associated free air. 3. There is some haziness and stranding in the omental fat subjacent to the above described hernia, is favored to be reactive inflammatory change secondary to changes in the incarcerated hernia as described above. Again, there is no intraabdominal fluid collection or free air. 4. Status post cholecystectomy. 5. Pancreas, kidneys, appendix normal. No small bowel colonic dilatation. 6. Atherosclerotic arterial calcifications. 7. Stable postoperative changes of mitral valve replacement and cardiac pacemaker placement. 8. See remainder of incidental findings in body of report above. [facility] A Service of [facility] RADIOLOGY TEXT RESULTS PATIENT: ASHLEY MEJIA LOCATION: [address] : [birth year] UNIT #: [id number] AGE: [address]: Jacek Nolen MD SEX: M ORDER DR: Dictated by... Carlos Durán M.D. THIS IS AN ELECTRONICALLY VERIFIED REPORT Carlos Durán M.D. at 01/06/2017 7:52 AM Nick TD: 01/03/2017 20:25 JOB #: [id number] MEDICAL IMAGING REPORT Page 1 of 1 COPY
--- NOTE | ~2017-01-03 | CR72 ---
[facility] A Service of [facility] & [facility] RADIOLOGY TEXT RESULTS PATIENT: ASHLEY MEJIA LOCATION: [facility] 466-01 : [birth year] UNIT #: [id number] AGE: [address]: Jacek Nolen MD SEX: M ORDER DR: [id number] [facility] [address] [facility] [place], [place] [address] [id number] I MR#: [id number] Acc #: [id number] NAME: ASHLEY MEJIA : 1970 SEX: M STUDY DATE/TIME: 01/13/2017 UNIT: [facility] ROOM: [facility] STUDY DESCRIPTION: CR Chest Single View Portable Attending Physician: Jacek Noeln Jr., M.D. Ordering Physician: Rufino Cabrera M.D. Primary Care Physician: [facility], [facility] MED[facility] IMAGING REPORT This report is preliminary unless electronic signature is present EXAM Portable chest, 01/13/2017 at 05:01. INDICATIONS Hypotension and shortness of air. Tachycardia. FINDINGS AP portable chest is compared with 01/12/2017. Cardiomegaly is stable status post valve repair. Chronic opacity in the lateral left base is stable. There is some vascular congestion. Lungs otherwise are clear. There is no pneumothorax. Dictated by... Derick Crowell Jr., M.D. THIS IS AN ELECTRONICALLY VERIFIED REPORT Derick Crowell Jr., M.D. at 01/13/2017 9:11 PM LEDA/adryan TD: 01/13/2017 11:42 JOB #: [id number] MEDICAL IMAGING REPORT Page 1 of 1 COPY
--- NOTE | ~2017-01-03 | HP ---
Unit #: [id number] #: [id number] Patient: ASHLEY MEJIA [id number] [address] [address] [id number] I MR#: [id number] NAME: ASHLEY MEJIA ROOM: CIC2 Age: 46 Sex: M Admission Date: 01/03/2017 : 1970 Attending Physician: Jacek Nolen Jr., M.D. Primary Care Physician: [facility] HISTORY AND PHYSICAL CHIEF COMPLAINT Abdominal pain with nausea. HISTORY OF PRESENT ILLNESS The patient is a morbidly obese, 46-year-old white male, who presented to the emergency room with the complaint of two weeks history of abdominal pain centrally. He has had some nausea but no significant vomiting along with it. He has mostly been tender over the mid part of his abdomen and is approximately six months status post repair of ventral hernia by Dr. Garcia and now has evidence of recurrence of two hernias in the midline. He has had no obstructive symptoms, otherwise, he has been doing okay. He has had some diarrhea along with this. He has had some chest pain as well. He is on several inhalers. He does smoke one pack of cigarettes per day. PAST MEDICAL HISTORY He has had a history of cardiac disease with a valve replacement, congestive heart failure, hypertension, respiratory problems with moderately severe chronic obstructive pulmonary disease but he is not on any home oxygen. He has also had gastroesophageal reflux disease and a psych history besides his morbid obesity. He has had depression. He has also had hypercholesterol problems and asthma. SURGERIES IN THE PAST He has had a valve replacement, stent placement x1, and defibrillator pacer as well as coronary artery bypass grafts. HOME MEDICATIONS He is on: 1. Incruse Ellipta 2. Aldactone 3. Lisinopril 4. Pravachol 5. Albuterol 6. Ventolin 7. Singulair 8. Cordarone 9. Hydroxyzine 10. Zoloft 11. Coreg 12. Prednisone 13. Tramadol 14. Cephalexin recently as well as Lasix Unit #: [id number] #: [id number] Patient: ASHLEY MEJIA ALLERGIES None known. TRANSFUSIONS None in the past. FAMILY HISTORY Noncontributory. SOCIAL HISTORY The patient is single, smokes approximately a pack of cigarettes per day. He is a nondrinker. IMMUNIZATIONS Up to date. REVIEW OF SYSTEMS Ten system review has been performed which is non-remarkable except in history of present illness. PHYSICAL EXAMINATION VITAL SIGNS: Temperature on admission 97.5, pulse 91, respirations 19, blood pressure 112/82. GENERAL DESCRIPTION: The patient is a morbidly obese, 46-year-old white male, in no acute distress. HEENT: Non-remarkable. NECK: Supple. CHEST: There is equal bilateral expansion with wheezing bilaterally. HEART: Regular rhythm without evidence of any murmurs or gallops. ABDOMEN: Soft, moderately tender in the midline with an obvious incarcerated ventral hernia and a small hernia in the area of the umbilicus. There are no masses or organomegaly, no gross abdominal distention although his abdomen is obese, no guarding or rebound. Active bowel sounds are present. EXTREMITIES: Full range of motion without limitations and there is no evidence of peripheral edema. BACK EXAM: There is no costovertebral angle tenderness. NEUROLOGICAL: Grossly intact. IMPRESSION By CT scan the patient has recurrent ventral hernias and has significant problems with both his heart as well as his lungs, plan will be to get cardiology to see him as well as pulmonary before considering any surgery. Dictated by Jacek Nolen Jr., M.D. MIRYAM/jimmy TD: 01/04/2017 09:30 JOB #: [id number] Unit #: [id number] #: [id number] Patient: ASHLEY MEJIA HISTORY AND PHYSICAL Page 1 of 1 X Jacek Nolen MD X HISTORY AND PHYSICAL
--- NOTE | ~2017-01-03 | CR72 ---
[facility] A Service of [facility] & [facility] RADIOLOGY TEXT RESULTS PATIENT: ASHLEY MEJIA LOCATION: CICCU2 CICCU2-03 : [birth year] UNIT #: [id number] AGE: [address]: Jacek Nolen MD SEX: M ORDER DR: [id number] [facility] [address] [facility]. [place], [place] [address] [id number] I MR#: [id number] Acc #: [id number] NAME: ASHLEY MEJIA : 1970 SEX: M STUDY DATE/TIME: 01/03/2017 15:55 UNIT: C2A ROOM: 239 STUDY DESCRIPTION: CR Chest Single View Portable Attending Physician: Jacek Nolen Jr., M.D. Ordering Physician: [facility] MEDICAL IMAGING REPORT This report is preliminary unless electronic signature is present EXAM Portable chest 01/03/2017 HISTORY Post-invasive procedure central line placement today. Congestive heart failure. Benign essential hypertension. FINDINGS The heart is enlarged but stable compared with 12/11/2016 status post median sternotomy and valvular replacement. Cardiac pacemaker is unchanged. Right internal jugular central line has been inserted with the tip in the superior vena cava. There is no pneumothorax. Dictated by... Chato Holley M.D. THIS IS AN ELECTRONICALLY VERIFIED REPORT Chato Holley M.D. at 01/06/2017 10:14 AM JANET/avelina TD: 01/03/2017 20:07 JOB #: [id number] MEDICAL IMAGING REPORT Page 1 of 1 COPY
--- NOTE | ~2017-01-03 | CR72 ---
[facility] A Service of [facility] & [facility] RADIOLOGY TEXT RESULTS PATIENT: ASHLEY MEJIA LOCATION: [place] [address]-03 : [birth year] UNIT #: [id number] AGE: [address]: Jacek Nolen MD SEX: M ORDER DR: [id number] [facility] [address] [place], [place] [address] [id number] I MR#: [id number] Acc #: [id number] NAME: ASHLEY MEJIA : 1970 SEX: M STUDY DATE/TIME: 01/06/2017 2:25 UNIT: [facility] ROOM: [facility] STUDY DESCRIPTION: CR Chest Single View Portable Attending Physician: Jacek Nolen Jr., M.D. Ordering Physician: [place] M.D. Primary Care Physician: [facility], [facility] MED[facility] IMAGING REPORT This report is preliminary unless electronic signature is present EXAM Portable chest INDICATION Respiratory failure follow up. PROCEDURE Frontal view of the chest. COMPARISON 01/05/2017 FINDINGS Stable cardiomegaly with vascular congestion. No new dense consolidation. No pneumothorax. IMPRESSION Stable. Dictated by... Pete Martinez M.D. THIS IS AN ELECTRONICALLY VERIFIED REPORT Pete Martinez M.D. at 01/06/2017 10:02 PM ALEX/regine TD: 01/06/2017 10:34 JOB #: [id number] MEDICAL IMAGING REPORT Page 1 of 1 COPY
--- NOTE | ~2017-01-03 | A ---
[facility] Nutrition Therapy DATE: 01/10/17 Patient: ASHLEY MEJIA Physician: NAYA Address: [address] Room/Bed: [address], Zip: [place] [address] Admit Date: 01/04/17 Date of : [birth year] Height: 5 5 Weight: 306 139 NUTRITIONAL ASSESSMENT: REASON: LOS IN ICU ASSESSMENT PT IS 46 Y.O. MALE ADMITTED FOR HERNIA PMH: CHF, HTN, COPD, GERD, HLD, ASTHMA, STANISLAW, CABG, OBESITY Anthropometrics: 5'5", WT: 290-306# (132 KG-139 KG) SINCE ADMIT, BMI: 48.3-50.9 Labs: CA+:8.3, ALB: 2.9 Meds: FUROSEMIDE, SENOKOT, LIPITOR I/O & Bowel function: 2350/2775 Skin Integrity: PEDAL PITTING EDEMA; BILATERAL HANDS GENERAL EDEMA Assessment: CHART REVIEWED AND EVENTS NOTED. PT SEEN FOR LENGTH OF STAY IN ICU (5 DAYS). PT REPORTS GOOD PO INTAKE AND APPETITE, NO C/O N/V/D. PER RN AND CHART, PT ON BIPAP AT NIGHT, CONSUMING 100% OF MEALS. THIS RD PROVIDED WRITTEN AND VERBAL HH + WEIGHT LOSS DIET EDUCATION. PT REPORTS NOT FOLLOWING ANY SPECIFIC DIET AT HOME. PT DEMONSTRATED UNDERSTANDING OF THE TOPIC. PT REPORTED NO DIET QUESTIONS AT THIS TIME. RD TO REMAIN AVAILABLE. Dx: EXCESSIVE CALORIC INTAKE R/T LIFESTYLE AEB BMI OF 48-50, PT REPORT ABOVE. Intervention: 1. 2 GM NA + 1800 ML FLUID RESTRICTION 2. DIET EDUCATION Monitoring, Evaluation and Goals: 1. ORAL INTAKE; CONSUME >50% OF MEALS 2. WEIGHTS; PROMOTE GRADUAL WEIGHT LOSS TOWARDS HEALTHY BMI MONITOR GOALS ABOVE Recommendations: 1. RECOMMEND TO ADD HEART HEALTHY TO CURRENT DIET ORDER ABOVE TO PROMOTE GRADUAL WEIGHT LOSS TOWARDS HEALTHY BMI (19.0-25.0) OR +/-10%IBW 2. CONSULT RD IF FURTHER DIET EDUCATION REQUESTED RD WILL F/U PER PROTOCOL PT IS MILDLY COMPROMISED [facility] Nutrition Therapy DATE: 01/10/17 Patient: ASHLEY MEJIA Physician: NAYA Address: [address] Room/Bed: [address], Zip: [place] [address] Admit Date: 01/04/17 Date of : [birth year] Height: 5 5 Weight: 306 139 Respectfully, LOUIE MEDINA MS, RD, LD Food and Nutritional Services [facility] cc: client file
--- NOTE | ~2017-01-03 | CR72 ---
[facility] A Service of [facility] & [facility] RADIOLOGY TEXT RESULTS PATIENT: ASHLEY MEJIA LOCATION: [address] : [birth year] UNIT #: [id number] AGE: [address]: Jacek Nolen MD SEX: M ORDER DR: [id number] [facility] [address] [place], [place] [address] [id number] I MR#: [id number] Acc #: [id number] NAME: ASHLEY MEJIA : 1970 SEX: M STUDY DATE/TIME: 01/05/2017 12:32 UNIT: [facility] ROOM: [facility] STUDY DESCRIPTION: CR Chest Single View Portable Attending Physician: Jacek Nolen Jr., M.D. Ordering Physician: Selvin Woody M.D. Primary Care Physician: [facility], MEDICAL IMAGING REPORT This report is preliminary unless electronic signature is present EXAM Portable chest HISTORY Shortness of air and chest pain for 10 days. FINDINGS Right IJ line tip is in the right upper mediastinum, at the level of the right brachiocephalic vein. Low lung volumes accentuate the cardiac size and pulmonary vascularity, and there is probably wsms-bj-mnqrrqli central vascular congestion and there is mild interstitial prominence, which could be due to edema. Postop changes of prior cardiac surgery. No significant change compared to earlier today. Dictated by... Dell Miller M.D. THIS IS AN ELECTRONICALLY VERIFIED REPORT Dell Miller M.D. at 01/06/2017 10:59 PM DFL/yoli TD: 01/05/2017 22:49 JOB #: [id number] MEDICAL IMAGING REPORT Page 1 of 1 COPY
[~2017-01-03 13:36] MED LIST changes: +COREG6.25 M1 PO; +ELLIPTA INH; +KEFLEX500 MG PO; +TRAMADOL HCL50 M2 PO
[2017-01-03 14:11] LABS: BASOPHIL# 0.1 X10e3 (0-0.3); BASOPHIL% 0.8 % (0-2.5); DIFF IND NO; EOSINOPHIL# 0.1 X10e3 (0-0.7); HEMATOCRIT 36.2 % (38.0-50.0); HEMOGLOBIN 11.7 gm/dL (13.0-16.0); LYMPHOCYTE# 1.6 X10e3 (1.0-3.5); LYMPHOCYTE% 10.7 % (17.0-45.0); MEAN CELL VOLUME 89.2 FL (83-96); MEAN CORPUSCULAR HGB CONC 32.5 g/dL (30-36); MEAN PLATELET VOLUME 8.4 FL (6.5-11.5); MONOCYTE# 1.3 X10e3 (0-1.0); MONOCYTE% 8.8 % (3.0-12.0); NEUTROPHIL# 11.7 X10e3 (1.5-7.1); NEUTROPHIL% 78.7 % (40-75); PLATELET COUNT 169 X10e3 (140-420); RED BLOOD COUNT 4.06 X10e (3.90-5.60); RED CELL DISTRIBUTION WIDTH 15.7 % (11.0-15.5); WHITE BLOOD COUNT 14.8 X10e3 (4.0-10.5)
[2017-01-03 14:37] LABS: ALBUMIN SERUM 3.3 g/dL (3.5-5.0); BILIRUBIN, DIRECT 0.1 mg/dL (0.0-0.2); BILIRUBIN,INDIRECT 0.5 mg/dL (0.0-0.9); BILIRUBIN,TOTAL 0.6 mg/dL (0.2-2.0); BUN/CREATININE RATIO 13.33; CREATININE SERUM 2.1 mg/dL (0.6-1.4); GLOM FILT RATE Estimated 36.9 mL/min (>60); PROTEIN TOTAL SERUM 6.3 g/dL (6.0-8.3)
[2017-01-03] MEDS ORDERED: PATIENT'S PHARMACY (14:59)
[2017-01-03] MEDS ORDERED: ULTRAM PO (14:59)
[2017-01-03] MEDS ORDERED: ALDACTONE25 MG PO (15:00)
[2017-01-03] MEDS ORDERED: COREG6.25 M1 PO (15:00)
[2017-01-03] MEDS ORDERED: VISTARIL PO (15:00)
[2017-01-03] MEDS ORDERED: PRAVACHOL20 MG PO (15:00)
[2017-01-03] MEDS ORDERED: ALBUTEROL17 GM INH (15:01)
[2017-01-03] MEDS ORDERED: BUMEX1 MG PO (15:01)
[2017-01-03] MEDS ORDERED: LASIX PO (15:01)
[2017-01-03] MEDS ORDERED: LISINOPRIL PO (15:01)
[2017-01-03] MEDS ORDERED: IPRAT-ALBUT 0.5-3 ML INH (15:01)
[2017-01-03 15:26] LABS: POC - CREATININE 1.99 mg/dL (0.64-1.27)
[2017-01-04 06:09] LABS: HEMATOCRIT 32.9 % (38.0-50.0); HEMOGLOBIN 10.8 gm/dL (13.0-16.0); MEAN CELL VOLUME 89.2 FL (83-96); MEAN CORPUSCULAR HEMOGLOBIN 29.2 PG (28-34); MEAN CORPUSCULAR HGB CONC 32.8 g/dL (30-36); RED BLOOD COUNT 3.68 X10e (3.90-5.60); RED CELL DISTRIBUTION WIDTH 15.7 % (11.0-15.5); WHITE BLOOD COUNT 10.8 X10e3 (4.0-10.5)
[2017-01-04 06:53] LABS: ALBUMIN SERUM 2.9 g/dL (3.5-5.0); BILIRUBIN,TOTAL 0.7 mg/dL (0.2-2.0); BUN/CREATININE RATIO 16.66; CALCIUM SERUM 7.9 mg/dL (8.4-10.2); CREATININE SERUM 1.5 mg/dL (0.6-1.4); GLOM FILT RATE Estimated 55.5 mL/min (>60); POTASSIUM 4.1 mmol/L (3.5-5.1); PROTEIN TOTAL SERUM 5.8 g/dL (6.0-8.3)
[2017-01-04 10:04] LABS: ARTERIAL BLD GAS O2 SATURATION 94.8 % (90.0-100.0); ARTERIAL BLOOD GAS CARBOXY HB 0.9 %sat (0.0-9.0); ARTERIAL BLOOD GAS HCO3 25.8 mmol/L; ARTERIAL BLOOD GAS MET HB 0.8 %sat (0.0-2.0); ARTERIAL BLOOD GAS PCO2 49.5 mmHg (35.0-45.0); ARTERIAL BLOOD GAS PO2 88.9 mmHg (80.0-100); ARTERIAL BLOOD GAS pH 7.325 (7.350-7.450)
[2017-01-04 10:11] LABS: ARTERIAL BLOOD GAS ALLEN TEST NORMAL; ARTERIAL BLOOD GAS ART SITE RIGHT RADIAL; ARTERIAL BLOOD GAS DELIVERY NASAL CANNULA; ARTERIAL DRAW? YES
[2017-01-04 16:27] LABS: URINE SOURCE CLEAN CATCH
[2017-01-04 16:40] LABS: URINE APPEARANCE CLEAR; URINE BILIRUBIN NEG (NEG); URINE BLOOD TRACE (NEG); URINE COLOR YELLOW; URINE GLUCOSE NEG (NEG); URINE KETONE NEG (NEG); URINE LEUKOCYTE ESTERASE 1+ (NEG); URINE NITRATE NEG (NEG); URINE PH 5.5 (5-8); URINE PROTEIN NEG (NEG); URINE SPECIFIC GRAVITY 1.007 (1.003-1.035); URINE UROBILINOGEN 0.2 MG/DL (NEG)
[2017-01-04 16:43] LABS: URINE BACTERIA AUWI NEG (NEGATIVE); URINE SQUAMOUS EPITHELIAL CELL NONE SEEN /[HPF]
[2017-01-04 16:51] LABS: CULTURE INDICATED? NO
[2017-01-05 05:53] LABS: BASOPHIL% 0.3 % (0-2.5); EOSINOPHIL# 0.1 X10e3 (0-0.7); EOSINOPHIL% 0.6 % (0.0-7.0); HEMATOCRIT 31.9 % (38.0-50.0); HEMOGLOBIN 10.3 gm/dL (13.0-16.0); LYMPHOCYTE# 1.6 X10e3 (1.0-3.5); LYMPHOCYTE% 12.8 % (17.0-45.0); MEAN CELL VOLUME 90.6 FL (83-96); MEAN CORPUSCULAR HEMOGLOBIN 29.2 PG (28-34); MEAN CORPUSCULAR HGB CONC 32.2 g/dL (30-36); MEAN PLATELET VOLUME 8.5 FL (6.5-11.5); MONOCYTE# 1.6 X10e3 (0-1.0); MONOCYTE% 12.5 % (3.0-12.0); NEUTROPHIL# 9.4 X10e3 (1.5-7.1); NEUTROPHIL% 73.8 % (40-75); PLATELET COUNT 150 X10e3 (140-420); RED BLOOD COUNT 3.52 X10e (3.90-5.60); RED CELL DISTRIBUTION WIDTH 15.9 % (11.0-15.5); WHITE BLOOD COUNT 12.8 X10e3 (4.0-10.5)
[2017-01-05 06:08] LABS: DIFF IND NO
[2017-01-05 06:40] LABS: ALBUMIN SERUM 2.8 g/dL (3.5-5.0); BILIRUBIN,TOTAL 0.2 mg/dL (0.2-2.0); BUN/CREATININE RATIO 21.25; CALCIUM SERUM 7.9 mg/dL (8.4-10.2); CREATININE SERUM 0.8 mg/dL (0.6-1.4); GLOM FILT RATE Estimated 107.9 mL/min (>60); POTASSIUM 4.5 mmol/L (3.5-5.1); PROTEIN TOTAL SERUM 5.8 g/dL (6.0-8.3)
[2017-01-05 12:19] LABS: ARTERIAL BLD GAS O2 SATURATION 72.7 % (90.0-100.0); ARTERIAL BLOOD GAS CARBOXY HB 1.2 %sat (0.0-9.0); ARTERIAL BLOOD GAS HCO3 26.8 mmol/L; ARTERIAL BLOOD GAS MET HB 0.8 %sat (0.0-2.0); ARTERIAL BLOOD GAS pH 7.221 (7.350-7.450)
[2017-01-05 12:22] LABS: ARTERIAL BLOOD GAS PCO2 65.5 mmHg (35.0-45.0)
[2017-01-05 12:23] LABS: ARTERIAL BLOOD GAS ALLEN TEST NORMAL; ARTERIAL BLOOD GAS ART SITE RIGHT RADIAL; ARTERIAL BLOOD GAS DELIVERY OXYMIZER; ARTERIAL DRAW? YES
[2017-01-05 14:35] LABS: %MB 1.9 % (0.0-4.0); MB 5.9 ng/ml
[2017-01-06 05:23] LABS: HEMATOCRIT 28.5 % (38.0-50.0); HEMOGLOBIN 9.3 gm/dL (13.0-16.0); MEAN CELL VOLUME 89.9 FL (83-96); MEAN CORPUSCULAR HEMOGLOBIN 29.2 PG (28-34); MEAN CORPUSCULAR HGB CONC 32.5 g/dL (30-36); MEAN PLATELET VOLUME 8.1 FL (6.5-11.5); RED BLOOD COUNT 3.18 X10e (3.90-5.60); RED CELL DISTRIBUTION WIDTH 15.8 % (11.0-15.5); WHITE BLOOD COUNT 9.2 X10e3 (4.0-10.5)
[2017-01-06 06:30] LABS: BUN/CREATININE RATIO 17.77; CREATININE SERUM 0.9 mg/dL (0.6-1.4); GLOM FILT RATE Estimated 102.8 mL/min (>60); POTASSIUM 4.8 mmol/L (3.5-5.1)
[2017-01-06 10:06] LABS: ARTERIAL BLD GAS O2 SATURATION 93.8 % (90.0-100.0); ARTERIAL BLOOD GAS HCO3 26.4 mmol/L; ARTERIAL BLOOD GAS PCO2 62.2 mmHg (35.0-45.0); ARTERIAL BLOOD GAS PO2 83.1 mmHg (80.0-100); ARTERIAL BLOOD GAS pH 7.237 (7.350-7.450)
[2017-01-06 10:07] LABS: ARTERIAL BLOOD GAS ALLEN TEST NORMAL; ARTERIAL BLOOD GAS ART SITE RIGHT RADIAL; ARTERIAL BLOOD GAS CARBOXY HB 0.8 %sat (0.0-9.0); ARTERIAL BLOOD GAS DELIVERY BIPAP 14/6; ARTERIAL BLOOD GAS MET HB 0.8 %sat (0.0-2.0); ARTERIAL DRAW? YES
[2017-01-07 06:12] LABS: BUN/CREATININE RATIO 21.25; CALCIUM SERUM 8.1 mg/dL (8.4-10.2); CREATININE SERUM 0.8 mg/dL (0.6-1.4); GLOM FILT RATE Estimated 107.9 mL/min (>60); POTASSIUM 4.5 mmol/L (3.5-5.1)
[2017-01-07 06:43] LABS: PROCALCITONIN 0.3 NG/ML
[2017-01-07 18:21] LABS: BUN/CREATININE RATIO 21.25; CALCIUM SERUM 8.2 mg/dL (8.4-10.2); CREATININE SERUM 0.8 mg/dL (0.6-1.4); GLOM FILT RATE Estimated 107.9 mL/min (>60); POTASSIUM 4.6 mmol/L (3.5-5.1)
[2017-01-08 04:15] LABS: BASOPHIL% 0.4 % (0-2.5); EOSINOPHIL% 0.3 % (0.0-7.0); HEMATOCRIT 29.5 % (38.0-50.0); HEMOGLOBIN 9.3 gm/dL (13.0-16.0); LYMPHOCYTE# 0.6 X10e3 (1.0-3.5); LYMPHOCYTE% 7.2 % (17.0-45.0); MEAN CELL VOLUME 90.2 FL (83-96); MEAN CORPUSCULAR HEMOGLOBIN 28.6 PG (28-34); MEAN CORPUSCULAR HGB CONC 31.7 g/dL (30-36); MEAN PLATELET VOLUME 7.7 FL (6.5-11.5); MONOCYTE# 0.5 X10e3 (0-1.0); MONOCYTE% 5.3 % (3.0-12.0); NEUTROPHIL# 7.4 X10e3 (1.5-7.1); NEUTROPHIL% 86.8 % (40-75); PLATELET COUNT 210 X10e3 (140-420); RED BLOOD COUNT 3.27 X10e (3.90-5.60); RED CELL DISTRIBUTION WIDTH 16.1 % (11.0-15.5); WHITE BLOOD COUNT 8.5 X10e3 (4.0-10.5)
[2017-01-08 04:16] LABS: DIFF IND YES
[2017-01-08 04:35] LABS: ALBUMIN SERUM 2.9 g/dL (3.5-5.0); BILIRUBIN,TOTAL 0.6 mg/dL (0.2-2.0); BUN/CREATININE RATIO 21.25; CALCIUM SERUM 8.3 mg/dL (8.4-10.2); CREATININE SERUM 0.8 mg/dL (0.6-1.4); GLOM FILT RATE Estimated 107.9 mL/min (>60)
[2017-01-08 04:37] LABS: POTASSIUM 5.5 mmol/L (3.5-5.1)
[2017-01-08 04:39] LABS: ANISOCYTOSIS SL; HYPOCHROMIA SL; PLATELET ESTIMATE NORMAL (NORMAL)
[2017-01-09 05:48] LABS: BUN/CREATININE RATIO 27.5; CALCIUM SERUM 8.7 mg/dL (8.4-10.2); CREATININE SERUM 0.8 mg/dL (0.6-1.4); GLOM FILT RATE Estimated 107.9 mL/min (>60)
[2017-01-10 06:18] LABS: BUN/CREATININE RATIO 32.85; CALCIUM SERUM 8.3 mg/dL (8.4-10.2); CREATININE SERUM 0.7 mg/dL (0.6-1.4); POTASSIUM 4.8 mmol/L (3.5-5.1)
[2017-01-10 18:11] LABS: MAGNESIUM 1.8 mg/dL (1.6-3.0)
[2017-01-10 18:31] LABS: PROCALCITONIN <0.05 NG/ML
[2017-01-11 05:20] LABS: BASOPHIL# 0.1 X10e3 (0-0.3); EOSINOPHIL% 0.1 % (0.0-7.0); HEMATOCRIT 30.2 % (38.0-50.0); HEMOGLOBIN 9.6 gm/dL (13.0-16.0); LYMPHOCYTE# 0.7 X10e3 (1.0-3.5); LYMPHOCYTE% 5.7 % (17.0-45.0); MEAN CELL VOLUME 90.1 FL (83-96); MEAN CORPUSCULAR HEMOGLOBIN 28.7 PG (28-34); MEAN CORPUSCULAR HGB CONC 31.8 g/dL (30-36); MEAN PLATELET VOLUME 7.5 FL (6.5-11.5); MONOCYTE# 0.3 X10e3 (0-1.0); MONOCYTE% 2.8 % (3.0-12.0); NEUTROPHIL# 11.4 X10e3 (1.5-7.1); NEUTROPHIL% 90.4 % (40-75); PLATELET COUNT 241 X10e3 (140-420); RED BLOOD COUNT 3.35 X10e (3.90-5.60); RED CELL DISTRIBUTION WIDTH 15.5 % (11.0-15.5); WHITE BLOOD COUNT 12.6 X10e3 (4.0-10.5)
[2017-01-11 05:32] LABS: DIFF IND YES
[2017-01-11 06:36] LABS: ANISOCYTOSIS SL; PLATELET ESTIMATE NORMAL (NORMAL)
[2017-01-11 12:31] LABS: CREATININE SERUM 0.8 mg/dL (0.6-1.4); GLOM FILT RATE Estimated 107.9 mL/min (>60)
[2017-01-11 12:33] LABS: POTASSIUM 5.8 mmol/L (3.5-5.1)
[2017-01-12 02:48] LABS: BASOPHIL# 0.1 X10e3 (0-0.3); BASOPHIL% 0.6 % (0-2.5); EOSINOPHIL% 0.1 % (0.0-7.0); HEMATOCRIT 31.7 % (38.0-50.0); HEMOGLOBIN 10.1 gm/dL (13.0-16.0); LYMPHOCYTE# 0.8 X10e3 (1.0-3.5); LYMPHOCYTE% 4.3 % (17.0-45.0); MEAN CELL VOLUME 89.8 FL (83-96); MEAN CORPUSCULAR HEMOGLOBIN 28.7 PG (28-34); MEAN CORPUSCULAR HGB CONC 31.9 g/dL (30-36); MEAN PLATELET VOLUME 7.3 FL (6.5-11.5); MONOCYTE# 0.9 X10e3 (0-1.0); MONOCYTE% 4.5 % (3.0-12.0); NEUTROPHIL% 90.5 % (40-75); PLATELET COUNT 272 X10e3 (140-420); RED BLOOD COUNT 3.52 X10e (3.90-5.60); RED CELL DISTRIBUTION WIDTH 15.6 % (11.0-15.5)
[2017-01-12 02:57] LABS: DIFF IND YES; WHITE BLOOD COUNT 19.8 X10e3 (4.0-10.5)
[2017-01-12 03:04] LABS: CALCIUM SERUM 8.4 mg/dL (8.4-10.2); GLOM FILT RATE Estimated 90.5 mL/min (>60); MAGNESIUM 2.2 mg/dL (1.6-3.0); POTASSIUM 4.9 mmol/L (3.5-5.1)
[2017-01-12 03:32] LABS: HYPERSEGMENTED POLYS PRESENT; PLATELET ESTIMATE NORMAL (NORMAL)
[2017-01-12 03:33] LABS: HYPOCHROMIA SL; POIKILOCYTOSIS SL
[2017-01-13 04:06] LABS: BASOPHIL# 0.1 X10e3 (0-0.3); BASOPHIL% 0.3 % (0-2.5); BUN/CREATININE RATIO 33.33; CALCIUM SERUM 8.3 mg/dL (8.4-10.2); CREATININE SERUM 0.9 mg/dL (0.6-1.4); GLOM FILT RATE Estimated 102.8 mL/min (>60); HEMATOCRIT 30.9 % (38.0-50.0); HEMOGLOBIN 9.8 gm/dL (13.0-16.0); LYMPHOCYTE# 0.7 X10e3 (1.0-3.5); LYMPHOCYTE% 3.9 % (17.0-45.0); MEAN CELL VOLUME 90.9 FL (83-96); MEAN CORPUSCULAR HEMOGLOBIN 28.9 PG (28-34); MEAN CORPUSCULAR HGB CONC 31.7 g/dL (30-36); MEAN PLATELET VOLUME 7.9 FL (6.5-11.5); MONOCYTE% 5.6 % (3.0-12.0); NEUTROPHIL# 16.3 X10e3 (1.5-7.1); NEUTROPHIL% 90.2 % (40-75); PLATELET COUNT 291 X10e3 (140-420); POTASSIUM 4.7 mmol/L (3.5-5.1); RED CELL DISTRIBUTION WIDTH 15.4 % (11.0-15.5); WHITE BLOOD COUNT 18.1 X10e3 (4.0-10.5)
[2017-01-13 04:08] LABS: DIFF IND NO
[2017-01-14 02:42] LABS: BASOPHIL% 0.1 % (0-2.5); DIFF IND NO; LYMPHOCYTE# 0.8 X10e3 (1.0-3.5); LYMPHOCYTE% 4.3 % (17.0-45.0); MEAN CELL VOLUME 90.1 FL (83-96); MEAN CORPUSCULAR HEMOGLOBIN 29.1 PG (28-34); MEAN CORPUSCULAR HGB CONC 32.3 g/dL (30-36); MEAN PLATELET VOLUME 7.1 FL (6.5-11.5); MONOCYTE# 1.7 X10e3 (0-1.0); MONOCYTE% 8.8 % (3.0-12.0); NEUTROPHIL# 16.8 X10e3 (1.5-7.1); NEUTROPHIL% 86.8 % (40-75); PLATELET COUNT 230 X10e3 (140-420); RED BLOOD COUNT 3.44 X10e (3.90-5.60); RED CELL DISTRIBUTION WIDTH 15.7 % (11.0-15.5); WHITE BLOOD COUNT 19.4 X10e3 (4.0-10.5)
[2017-01-14 02:52] LABS: PARTIAL THROMBOPLASTIN TIME 20.1 SECONDS (23.5-31.3); PROTHROMBIN TIME (PATIENT) 10.7 SECONDS (10.0-11.7)
[2017-01-14 02:59] LABS: CALCIUM SERUM 8.4 mg/dL (8.4-10.2); GLOM FILT RATE Estimated 90.5 mL/min (>60); MAGNESIUM 2.1 mg/dL (1.6-3.0); PHOSPHOROUS 4.5 mg/dL (2.5-4.6); POTASSIUM 4.9 mmol/L (3.5-5.1)
[2017-01-14 16:46] LABS: ARTERIAL BLD GAS O2 SATURATION 95.4 % (90.0-100.0); ARTERIAL BLOOD GAS CARBOXY HB 0.5 %sat (0.0-9.0); ARTERIAL BLOOD GAS HCO3 37.3 mmol/L; ARTERIAL BLOOD GAS MET HB 0.7 %sat (0.0-2.0); ARTERIAL BLOOD GAS pH 7.203 (7.350-7.450)
[2017-01-14 16:49] LABS: ARTERIAL BLOOD GAS ALLEN TEST N; ARTERIAL BLOOD GAS ART SITE RIGHT RADIAL; ARTERIAL BLOOD GAS DELIVERY VENT; ARTERIAL BLOOD GAS PCO2 94.9 mmHg (35.0-45.0); ARTERIAL BLOOD GAS VENT MODE AC; ARTERIAL DRAW? YES
[2017-01-14 17:34] LABS: ARTERIAL BLOOD GAS CARBOXY HB 0.6 %sat (0.0-9.0); ARTERIAL BLOOD GAS HCO3 36.2 mmol/L; ARTERIAL BLOOD GAS MET HB 0.9 %sat (0.0-2.0); ARTERIAL BLOOD GAS pH 7.243 (7.350-7.450)
[2017-01-14 17:35] LABS: ARTERIAL BLOOD GAS ALLEN TEST N; ARTERIAL BLOOD GAS ART SITE RIGHT RADIAL; ARTERIAL BLOOD GAS DELIVERY VENT; ARTERIAL BLOOD GAS PCO2 84.2 mmHg (35.0-45.0); ARTERIAL BLOOD GAS VENT MODE AC; ARTERIAL DRAW? YES
[2017-01-14 17:38] LABS: BASOPHIL% 0.2 % (0-2.5); HEMATOCRIT 35.8 % (38.0-50.0); HEMOGLOBIN 11.3 gm/dL (13.0-16.0); LYMPHOCYTE# 1.3 X10e3 (1.0-3.5); LYMPHOCYTE% 5.5 % (17.0-45.0); MEAN CELL VOLUME 91.7 FL (83-96); MEAN CORPUSCULAR HEMOGLOBIN 28.8 PG (28-34); MEAN CORPUSCULAR HGB CONC 31.4 g/dL (30-36); MEAN PLATELET VOLUME 7.4 FL (6.5-11.5); MONOCYTE# 1.3 X10e3 (0-1.0); MONOCYTE% 5.4 % (3.0-12.0); NEUTROPHIL% 88.9 % (40-75); PLATELET COUNT 266 X10e3 (140-420); RED CELL DISTRIBUTION WIDTH 16.2 % (11.0-15.5); WHITE BLOOD COUNT 23.6 X10e3 (4.0-10.5)
[2017-01-14 17:42] LABS: DIFF IND NO
[2017-01-14 18:06] LABS: CALCIUM SERUM 8.1 mg/dL (8.4-10.2); CREATININE SERUM 0.9 mg/dL (0.6-1.4); GLOM FILT RATE Estimated 102.8 mL/min (>60); MAGNESIUM 2.3 mg/dL (1.6-3.0); PHOSPHOROUS 6.8 mg/dL (2.5-4.6)
[2017-01-14 18:09] LABS: POTASSIUM 5.6 mmol/L (3.5-5.1)
[2017-01-15 04:24] LABS: BASOPHIL# 0.1 X10e3 (0-0.3); BASOPHIL% 0.3 % (0-2.5); HEMATOCRIT 31.5 % (38.0-50.0); HEMOGLOBIN 10.4 gm/dL (13.0-16.0); LYMPHOCYTE# 0.8 X10e3 (1.0-3.5); LYMPHOCYTE% 4.2 % (17.0-45.0); MEAN CELL VOLUME 89.7 FL (83-96); MEAN CORPUSCULAR HEMOGLOBIN 29.7 PG (28-34); MEAN CORPUSCULAR HGB CONC 33.1 g/dL (30-36); MEAN PLATELET VOLUME 7.3 FL (6.5-11.5); MONOCYTE# 1.4 X10e3 (0-1.0); MONOCYTE% 6.8 % (3.0-12.0); NEUTROPHIL# 17.9 X10e3 (1.5-7.1); NEUTROPHIL% 88.7 % (40-75); PLATELET COUNT 190 X10e3 (140-420); RED BLOOD COUNT 3.51 X10e (3.90-5.60); RED CELL DISTRIBUTION WIDTH 15.7 % (11.0-15.5); WHITE BLOOD COUNT 20.1 X10e3 (4.0-10.5)
[2017-01-15 04:25] LABS: DIFF IND YES
[2017-01-15 04:42] LABS: ANISOCYTOSIS SL; PLATELET ESTIMATE DECREASED (NORMAL)
[2017-01-15 04:52] LABS: CALCIUM SERUM 8.4 mg/dL (8.4-10.2); CREATININE SERUM 0.8 mg/dL (0.6-1.4); GLOM FILT RATE Estimated 107.9 mL/min (>60); MAGNESIUM 2.2 mg/dL (1.6-3.0); PHOSPHOROUS 4.1 mg/dL (2.5-4.6); POTASSIUM 5.2 mmol/L (3.5-5.1)
[2017-01-15 10:11] LABS: ARTERIAL BLD GAS O2 SATURATION 97.1 % (90.0-100.0); ARTERIAL BLOOD GAS CARBOXY HB 0.6 %sat (0.0-9.0); ARTERIAL BLOOD GAS HCO3 34.1 mmol/L; ARTERIAL BLOOD GAS MET HB 0.7 %sat (0.0-2.0); ARTERIAL BLOOD GAS pH 7.421 (7.350-7.450)
[2017-01-15 10:12] LABS: ARTERIAL BLOOD GAS ART SITE RIGHT RADIAL; ARTERIAL BLOOD GAS DELIVERY VENT; ARTERIAL BLOOD GAS PCO2 52.6 mmHg (35.0-45.0); ARTERIAL BLOOD GAS VENT MODE CPAP; ARTERIAL DRAW? YES
[2017-01-16 02:29] LABS: BASOPHIL# 0.1 X10e3 (0-0.3); BASOPHIL% 0.6 % (0-2.5); HEMATOCRIT 30.3 % (38.0-50.0); HEMOGLOBIN 9.6 gm/dL (13.0-16.0); LYMPHOCYTE# 1.8 X10e3 (1.0-3.5); LYMPHOCYTE% 9.5 % (17.0-45.0); MEAN CELL VOLUME 90.1 FL (83-96); MEAN CORPUSCULAR HEMOGLOBIN 28.6 PG (28-34); MEAN CORPUSCULAR HGB CONC 31.8 g/dL (30-36); MEAN PLATELET VOLUME 7.6 FL (6.5-11.5); MONOCYTE% 10.4 % (3.0-12.0); NEUTROPHIL# 15.1 X10e3 (1.5-7.1); NEUTROPHIL% 79.5 % (40-75); PLATELET COUNT 167 X10e3 (140-420); RED BLOOD COUNT 3.36 X10e (3.90-5.60); RED CELL DISTRIBUTION WIDTH 16.1 % (11.0-15.5)
[2017-01-16 02:30] LABS: DIFF IND NO
[2017-01-16 02:44] LABS: BUN/CREATININE RATIO 30.83; CALCIUM SERUM 7.7 mg/dL (8.4-10.2); CREATININE SERUM 1.2 mg/dL (0.6-1.4); GLOM FILT RATE Estimated 72.6 mL/min (>60); POTASSIUM 4.2 mmol/L (3.5-5.1)
[2017-01-16] MEDS ORDERED: AMIODARONE HCL200 MG PO (18:38)
[2017-01-16] MEDS ORDERED: PREDNISONE10 MG PO (18:39)
[2017-01-16] MEDS ORDERED: ALBUTEROL17 GM INH (18:40)
[2017-01-16] MEDS ORDERED: COMBIVENT U/D3 M2 INH (18:41)
[2017-01-16] MEDS ORDERED: NICOTINE PATCH1 EAC1 TD (18:42)
== END 2017-01-16 19:45 | disposition home health service (06) | DRG 353 ==
LOC: CED 13:36 → C2A 16:55 → CICCU2 17:05 → CED 17:05 → C2A 17:05 → CICCU2 17:05 → C4C 01-04 08:49 → CICCU2 01-04 08:49 → C2A 01-04 08:49 → CICCU2 01-04 08:49 → C4C 01-12 18:15 → CICCU2 01-14 18:03 → C4C 01-15 19:30
PROVIDERS: Anesthesiology; Emergency Medicine; Internal Medicine Cardiovascular Disease; Internal Medicine Pulmonary Disease; Nurse Practitioner; Nurse Practitioner Family; Specialist; Surgery
PROC: 05HM33Z Insertion of Infusion Device into Right Internal Jugular Vein, Percutaneous Approach (ICD-10-PCS; 2017-01-04)
PROC: B543ZZA Ultrasonography of Right Jugular Veins, Guidance (ICD-10-PCS; 2017-01-04)
PROC: 0WQF0ZZ Repair Abdominal Wall, Open Approach (ICD-10-PCS; principal; 2017-01-14 14:30)
DX: K43.0 Incisional hernia with obstruction, without gangrene (principal); R57.0 Cardiogenic shock; J96.21 Acute and chronic respiratory failure with hypoxia; I50.23 Acute on chronic systolic (congestive) heart failure; J96.22 Acute and chronic respiratory failure with hypercapnia; J44.1 Chronic obstructive pulmonary disease with (acute) exacerbation; Z68.43 Body mass index [BMI] 50.0-59.9, adult; Z95.2 Presence of prosthetic heart valve; Z95.1 Presence of aortocoronary bypass graft; E66.01 Morbid (severe) obesity due to excess calories; F17.210 Nicotine dependence, cigarettes, uncomplicated; K21.9 Gastro-esophageal reflux disease without esophagitis; F32.9 Major depressive disorder, single episode, unspecified; E78.00 Pure hypercholesterolemia, unspecified; J45.909 Unspecified asthma, uncomplicated; R00.0 Tachycardia, unspecified; I25.5 Ischemic cardiomyopathy; Z90.49 Acquired absence of other specified parts of digestive tract; E87.5 Hyperkalemia; I45.10 Unspecified right bundle-branch block; R62.7 Adult failure to thrive; G47.33 Obstructive sleep apnea (adult) (pediatric); I11.0 Hypertensive heart disease with heart failure
CPT/HCPCS: 36600; 71010; 74176; 80048; 80053; 80076; 81003; 82150; 82308; 82550; 82553; 82565; 82803; 82947; 83605; 83690; 83735; 83880; 84100; 84132; 84484; 85025; 85027; 85610; 85730; 86850; 86900; 86901; 87040; 87070; 87205; 88302; 93005; 94002; 94003; 94010; 94640; 94660; 94664; 94760; 94761; 96360; 96361; 97110; 97116; 97163; 97164; 97165; 97530; 99291; G0238; G8978-GP; G8979-GP; G8987-GO; G8988-GO; G8989-GO; J0131; J0290; J0330; J0690; J0692; J1250; J1265; J1580; J1650; J1940; J2270; J2370; J2405; J2543; J2550; J2710; J2920; J3010; J3370; J3475

== ENCOUNTER 2017-02-02 01:41 | Emergency (ER) | payer OTHER ==
--- NOTE | ~2017-02-02 | CR72 ---
[facility] A Service of [facility] & [facility] RADIOLOGY TEXT RESULTS PATIENT: ASHLEY MEJIA LOCATION: [facility] : 71 UNIT #: [id number] AGE: [address]: Denilson Glaser MD SEX: M ORDER DR: [id number] [facility] [address] [facility] [place], [place] [address] [id number] E MR#: [id number] Acc #: [id number] NAME: ASHLEY MEJIA : 1970 SEX: M STUDY DATE/TIME: 02/02/2017 02:47 UNIT: [facility] ROOM: STUDY DESCRIPTION: CR Chest Single View Portable Attending Physician: Denilson Glaser M.D. Ordering Physician: Pete Orozco M.D. Primary Care Physician: [facility] REPORT This report is preliminary unless electronic signature is present EXAM Portable chest 02/02 at 02:47 INDICATIONS Shortness of air, chest pain and weakness today. FINDINGS AP portable chest compared with 01/16/2017. Cardiomegaly is stable. Patient status post CABG and valve repair. Granulomatous calcification noted right base. Lungs are otherwise clear. No pneumothorax. IMPRESSION Stable cardiomegaly. No acute findings in the chest. Dictated by... Derick Crowell Jr., M.D. THIS IS AN ELECTRONICALLY VERIFIED REPORT Derick Crowell Jr., M.D. at 02/03/2017 3:14 AM REGINAK/yoli TD: 02/02/2017 21:32 JOB #: [id number] MEDICAL IMAGING REPORT Page 1 of 1 COPY
--- NOTE | ~2017-02-02 | CT2 ---
[facility] A Service of [facility] RADIOLOGY TEXT RESULTS PATIENT: ASHLEY MEJIA LOCATION: [facility] : 71 UNIT #: [id number] AGE: [address]: Denilson Glaser MD SEX: M ORDER DR: [id number] [facility] [address] [place], [place] [address] [id number] E MR#: [id number] Acc #: [id number] NAME: ASHLEY MEJIA : 1970 SEX: M STUDY DATE/TIME: 02/02/2017 02:22 UNIT: [facility] ROOM: STUDY DESCRIPTION: CT Abd and Pelv W Cont Attending Physician: Denilson Glaser M.D. Ordering Physician: Pete Orozco M.D. Primary Care Phys[facility] REPORT This report is preliminary unless electronic signature is present EXAM Abdomen and pelvis CT 02/02 at 02:22 INDICATIONS Abdominal pain for 2 days with redness at surgical site. Hernia repair 3 weeks ago. TECHNIQUE Axial images were obtained through the abdomen and pelvis following oral and IV contrast administration. Multiplanar reformats were obtained. Comparison made with 01/03/2017. This CT exam was performed with one or more of the following radiation dose reduction techniques: Automatic exposure control, adjustment of mA and/or kV according to patient size, and iterative reconstruction. FINDINGS ABDOMEN: For a description of findings in the lung bases, please see the chest CT report, dictated separately. Gallbladder is surgically absent. No biliary obstruction. Solid abdominal organs are normal. There is atherosclerotic disease. GI tract is normal. Patient is status post ventral wall hernia repair. No definite recurrent hernia is seen. However, there is an irregular fluid collection superficial to the abdominal wall fascia within the operative bed. It measures about 16.8 cm in craniocaudal dimension. It measures about 12.1 cm in greatest transverse dimension by about 5.3 cm in depth. This is presumably a large postoperative seroma. There are no gas bubbles within it to suggest that it is an abscess at this time and it has no enhancing rind around it. PELVIS: Urinary bladder is normal. The appendix is normal, as is the remainder of the GI tract. There is no free fluid. IMPRESSION 1. Interval ventral wall hernia repair. No recurrent hernia is seen. [facility]. [facility] A Service of [facility] RADIOLOGY TEXT RESULTS PATIENT: ASHLEY MEJIA LOCATION: [facility] : 71 UNIT #: [id number] AGE: [address]: Denilson Glaser MD SEX: M ORDER DR: 2. Large, somewhat irregular fluid collection in the ventral abdominal wall at the operative site, superficial to the fascia. It measures at least 16.8 x 5.3 x 12.1 cm. It does not contain any gas bubbles and it does not have a thickened enhancing rind around it. This would suggest that it is a seroma rather than an abscess. Correlate clinically in this regard. 3. No other acute findings in the abdomen or pelvis. GI tract including the appendix is normal. 4. Cholecystectomy. Dictated by... Derick Crowell Jr., M.D. THIS IS AN ELECTRONICALLY VERIFIED REPORT Derick Crowell Jr., M.D. at 02/03/2017 3:15 AM LEDA/yoli TD: 02/02/2017 22:12 JOB #: [id number] MEDICAL IMAGING REPORT Page 1 of 1 COPY
--- NOTE | ~2017-02-02 | EKG ---
PATIENT: ASHLEY MEJIA UNIT #: [id number] Ventricular Rate: 88 BPM Atrial Rate: 88 BPM P-R Interval: 188 ms QRS Duration: 136 ms Q-T Interval: 402 ms QTC Calculation(Bezet): 486 ms P [place]: -27 degrees Calculated R [place]: 75 degrees Calculated T [place]: 6 degrees Diagnosis Line: Normal sinus rhythm Diagnosis Line: Right bundle branch block Diagnosis Line: Cannot rule out Septal infarct (cited on or before Diagnosis Line: 02-FEB-2017) Diagnosis Line: T wave abnormality, consider anterolateral Diagnosis Line: ischemia Diagnosis Line: Abnormal ECG Diagnosis Line: When compared with ECG of 10-JAN-2017 06:04, Diagnosis Line: No significant change was found Diagnosis Line: Confirmed by MASON CHASE MD ([id number]) on 02/02/2017 Diagnosis Line: 3:11:45 PM INTERPRETING MD: RENA CAR
--- NOTE | ~2017-02-02 | CT16 ---
[facility] A Service of [facility] RADIOLOGY TEXT RESULTS PATIENT: ASHLEY MEJIA LOCATION: [facility] : 72 UNIT #: [id number] AGE: [address]: Denilson Glaser MD SEX: M ORDER DR: [id number] [facility] [address]. [place], [place] [address] [id number] E MR#: [id number] Acc #: [id number] NAME: ASHLEY MEJIA : 1970 SEX: M STUDY DATE/TIME: 02/02/2017 04:52 UNIT: [facility] ROOM: STUDY DESCRIPTION: CT Angio Chest for PE Attending Physician: Denilson Glaser M.D. Ordering Physician: Pete Orozco M.D. Primary Care Physician: [facility] IMAGING REPORT This report is preliminary unless electronic signature is present EXAM Chest CTA, 02/02/2017 at 04:52 INDICATION Chest pain, shortness of air, and abdominal pain for 2 days with recent hernia repair 3 weeks ago. History of hypertension and abdominal pain for 2 days with recent hernia repair 3 weeks ago. History of hypertension and CHF. TECHNIQUE Axial images were obtained through the chest following IV contrast administration. 3-D reformats were obtained. Comparison made with 12/11/2016. This CT exam was performed with one or more of the following radiation dose reduction techniques: automatic exposure control, adjustment of mA and/or kV according to patient size, and iterative reconstruction. FINDINGS No pulmonary embolism or aortic dissection is seen. The heart is enlarged. Patient is status post mitral valve repair. There is coronary artery disease. There is no pleural or pericardial effusion. The images are somewhat degraded by excessive respiratory motion. Granulomatous calcifications noted in the right middle lobe. No acute infiltrates. For description of findings in the upper abdomen, please see the abdomen and pelvis CT report dictated separately. IMPRESSION 1. No pulmonary embolism or aortic dissection. 2. Coronary artery disease. 3. No acute infiltrates. [facility] A Service [facility] RADIOLOGY TEXT RESULTS PATIENT: ASHLEY MEJIA LOCATION: [facility] : 72 UNIT #: [id number] AGE: [address]: Denilson Glaser MD SEX: M ORDER DR: Dictated by... Derick Crowell Jr., M.D. THIS IS AN ELECTRONICALLY VERIFIED REPORT Derick Crowell Jr., M.D. at 02/03/2017 3:15 AM LEDA/miryam TD: 02/02/2017 22:17 JOB #: [id number] MEDICAL IMAGING REPORT Page 1 of 1 COPY
[~2017-02-02 01:41] MED LIST changes: +AMIODARONE HCL200 MG PO; +BUMEX1 MG PO; +IPRAT-ALBUT 0.5-3 ML INH; +LISINOPRIL PO; +NICOTINE PATCH1 EAC1 TD; +PATIENT'S PHARMACY; +ULTRAM PO; +VISTARIL PO
[2017-02-02 02:59] LABS: BASOPHIL# 0.1 X10e3 (0-0.3); BASOPHIL% 0.9 % (0-2.5); EOSINOPHIL# 0.4 X10e3 (0-0.7); EOSINOPHIL% 4.1 % (0.0-7.0); HEMATOCRIT 36.3 % (38.0-50.0); HEMOGLOBIN 11.7 gm/dL (13.0-16.0); LYMPHOCYTE# 1.6 X10e3 (1.0-3.5); MEAN CELL VOLUME 91.1 FL (83-96); MEAN CORPUSCULAR HEMOGLOBIN 29.4 PG (28-34); MEAN CORPUSCULAR HGB CONC 32.3 g/dL (30-36); MEAN PLATELET VOLUME 8.2 FL (6.5-11.5); MONOCYTE# 0.8 X10e3 (0-1.0); MONOCYTE% 8.6 % (3.0-12.0); NEUTROPHIL# 6.4 X10e3 (1.5-7.1); NEUTROPHIL% 69.4 % (40-75); PLATELET COUNT 146 X10e3 (140-420); RED BLOOD COUNT 3.98 X10e (3.90-5.60); RED CELL DISTRIBUTION WIDTH 16.3 % (11.0-15.5); WHITE BLOOD COUNT 9.2 X10e3 (4.0-10.5)
[2017-02-02 03:00] LABS: DIFF IND NO
[2017-02-02 03:26] LABS: ALBUMIN SERUM 3.4 g/dL (3.5-5.0); BILIRUBIN, DIRECT 0.1 mg/dL (0.0-0.2); BILIRUBIN,INDIRECT 0.1 mg/dL (0.0-0.9); BILIRUBIN,TOTAL 0.2 mg/dL (0.2-2.0); BUN/CREATININE RATIO 10.66; CALCIUM SERUM 8.5 mg/dL (8.4-10.2); CREATININE SERUM 1.5 mg/dL (0.6-1.4); GLOM FILT RATE Estimated 55.5 mL/min (>60); POTASSIUM 3.8 mmol/L (3.5-5.1); PROTEIN TOTAL SERUM 6.4 g/dL (6.0-8.3)
[2017-02-02 04:21] LABS: POC - CKMB 1.1 ng/mL (0.0-7.9); POC - TROPONIN <0.05 ng/mL (<=0.05)
[2017-02-02 05:28] LABS: URINE SOURCE CLEAN CATCH
[2017-02-02 05:41] LABS: URINE APPEARANCE CLEAR; URINE BLOOD NEG (NEG); URINE COLOR DK YELLOW; URINE GLUCOSE NEG (NEG); URINE KETONE TRACE (NEG); URINE LEUKOCYTE ESTERASE TRACE (NEG); URINE NITRATE NEG (NEG); URINE PROTEIN 1+ (NEG); URINE SPECIFIC GRAVITY 1.024 (1.003-1.035)
[2017-02-02 05:43] LABS: URBCS1 AUWI 0-2 /[HPF] (0-2); URINE BACTERIA AUWI NEG (NEGATIVE); URINE SQUAMOUS EPITHELIAL CELL NONE SEEN /[HPF]; UWBCS1 AUWI 0-2 (0-5)
[2017-02-02 05:57] LABS: CULTURE INDICATED? NO
[2017-02-02 05:58] LABS: URINE BILIRUBIN NEG (NEG)
[2017-02-02 06:00] LABS: URINE GRANULAR CAST 0-2 /[HPF]
[2017-03-20] MEDS ORDERED: TASPRIN325 MG PO (16:53)
== END 2017-02-02 09:50 | disposition home or self-care (01) ==
LOC: CED 01:41
PROVIDERS: Emergency Medicine
DX: G89.18 Other acute postprocedural pain (principal); R10.84 Generalized abdominal pain; R06.02 Shortness of breath; R50.9 Fever, unspecified; I10 Essential (primary) hypertension; I25.10 Atherosclerotic heart disease of native coronary artery without angina pectoris; E78.5 Hyperlipidemia, unspecified; J44.9 Chronic obstructive pulmonary disease, unspecified; E66.9 Obesity, unspecified; F17.210 Nicotine dependence, cigarettes, uncomplicated; Z79.899 Other long term (current) drug therapy
CPT/HCPCS: 36415; 71010; 71275; 74177; 80048; 80076; 81003; 82150; 82553; 83605; 83690; 83880; 84484; 85025; 87040; 93005; 94640; 96361; 96374; 99285; J2930; Q9967

== ENCOUNTER 2017-02-08 15:08 | Inpatient (IN) | payer OTHER ==
[~2017-02-08] VITALS: Ht 162.6 cm; Wt 139.0 kg
--- NOTE | ~2017-02-08 | CR72 ---
[facility] A Service of [facility] & [facility] RADIOLOGY TEXT RESULTS PATIENT: ASHLEY MEJIA LOCATION: [facility] 576-01 : 72 UNIT #: [id number] AGE: [address]: Lul Rice MD SEX: M ORDER DR: [id number] [facility] [address] [place], [place] [address] [id number] I MR#: [id number] Acc #: [id number] NAME: ASHLEY MEJIA : 1970 SEX: M STUDY DATE/TIME: 02/10/2017 6:35 UNIT: [facility] ROOM: [facility] STUDY DESCRIPTION: CR Chest Single View Portable Attending Physician: Lul Rice M.D. Ordering Physician: Rufino Cabrera M.D. Primary Care Physician: [facility] MEDICAL IMAGING REPORT This report is preliminary unless electronic signature is present EXAM Portable chest, 02/10. INDICATIONS Shortness of air, cough and chest pain for the last 2 days. History of smoking and COPD. FINDINGS AP portable chest is compared with 02/08/2011. Cardiomegaly is stable status post valve repair. There is continued central vascular congestion. Scattered granulomatous calcifications are seen. No pneumothorax. Dictated by... Derick Crowell Jr., M.D. THIS IS AN ELECTRONICALLY VERIFIED REPORT Derick Crowell Jr., M.D. at 02/10/2017 3:47 PM LEDA/oliver TD: 02/10/2017 10:41 JOB #: [id number] MEDICAL IMAGING REPORT Page 1 of 1 COPY
--- NOTE | ~2017-02-08 | HP ---
Unit #: [id number] #: [id number] Patient: ASHLEY MEJIA [id number] [address] [place], [place] [address] [id number] I MR#: [id number] NAME: ASHLEY MEJIA ROOM: 576 Age: 46 Sex: M Admission Date: 02/08/2017 : 1970 Attending Physician: Lul Rice M.D. [facility] HISTORY AND PHYSICAL CHIEF COMPLAINT Fever, shortness of breath, cough, wheezing, upper back pain. DISCUSSION This is a 46-year-old gentleman who has a past medical history of oxygen-dependent COPD, chronic respiratory failure, obstructive sleep apnea (currently not on CPAP), history of ischemic cardiomyopathy, CHF with ejection fraction of 35% with previous AICD, coronary artery disease, CABG, anxiety and depression. He had an exploratory laparotomy and incarcerated ventral hernia repair on 01/14/17. The patient came here and also had an ER visit on 02/03/17 with severe symptoms. The patient had a CT scan PE protocol, was negative, and eventually the patient was sent home. The patient called EMS today because of shortness of breath. On EMS arrival the patient was found to be hypoxic. They increased oxygen to 6 liters and brought to the emergency room. On workup in the ER the patient had ABG with pH 7.41, CO2 57, O2 77 and found to be in COPD and bronchitis and eventually was admitted. He said he had been having shortness of breath and cough, which progressively got worse for the last few days. He said he had a fever at home, too. He has been wheezing, and he is complaining of chest pain with deep breaths and upper back pain. No nausea, no vomiting. PAST MEDICAL HISTORY 1. History of ischemic cardiomyopathy with ejection fraction 35% status post AICD placement. 2. History of status post tissue mitral valve replacement in 2010. 3. Coronary artery disease status post 2-vessel CABG in 2010. 4. He had an echo in September 2016 showing gzan-so-avxgazny mitral regurgitation and qvvr-qt-uomumprz pulmonary valve regurgitation with moderate tricuspid regurgitation and tpxiyzvd-dx-lbyikw diffuse atherosclerosis of aorta. 5. Obstructive sleep apnea, currently not on BiPAP. 6. History of vancomycin-induced kidney injury when being treated with vancomycin for MRSA pneumonia. 7. Hypertension. 8. Hyperlipidemia. 9. History of COPD requiring 2.5 to 3 liters of oxygen. 10. History of anxiety and depression. 11. Chronic respiratory failure. 12. Chronic right bundle branch block. 13. Morbid obesity. PAST SURGICAL HISTORY Unit #: [id number] #: [id number] Patient: ASHLEY MEJIA 1. History of CABG in 2010. 2. History of AICD. 3. History of status post mitral valve replacement, tissue valve, in 2010. 4. Laparoscopic cholecystectomy for chronic cholecystitis in June 2016. 5. History of exploratory laparotomy and repair of incarcerated ventral hernia on January 14, 2017. ALLERGIES No known drug allergies. FAMILY HISTORY Negative for lung disease. SOCIAL HISTORY The patient lives with and son. He used to smoke 2 packs per day, but he cut down. He says he is smoking a few cigarettes daily now. He does not drink alcohol. MEDICATIONS FROM HOME 1. Ventolin 1 puff q.4 hours p.r.n. 2. Coreg 6.25 b.i.d. 3. Bumex 1 mg b.i.d. 4. Zoloft 50 mg daily. 5. Aldactone 25 mg daily. 6. Lasix 40 mg b.i.d. 7. Hydroxyzine 25 mg t.i.d. 8. Pravastatin 20 mg daily. 9. Aspirin 81 mg daily. REVIEW OF SYSTEMS All review of systems is negative except as in history of present illness. PHYSICAL EXAMINATION GENERAL: Middle-aged man lying in bed comfortably, currently not in any distress. CURRENT VITALS: Temperature is 98.2, heart rate 90, respirations 20, blood pressure 115/71, oxygen 95% on 4 liters. HEENT: Pupils are equal and reactive to light. Extraocular muscles are intact. Pharynx is benign. NECK: Neck is supple. No JVD. No thyromegaly. LUNGS: Poor air entry bilaterally. HEART: S1, S2. Regular rate and rhythm with soft systolic murmur. ABDOMEN: Abdomen is obese. There is a midline scar positive. No guarding. No rigidity. No tenderness. EXTREMITIES: Inspection is normal. No cyanosis. No clubbing. No edema. NEUROLOGIC: Alert, awake, oriented x3. Cranial nerves II-XII intact. Equal strength bilaterally. Power 5/5. PSYCHIATRIC: Normal mood and affect. SKIN: Warm and dry. DIAGNOSTIC STUDIES LABORATORY WORKUP: ABG shows pH 7.4, pCO2 57, pO2 77. UA is negative. INR is 1. D-dimer is 638. White count 9, hemoglobin 13, hematocrit 39, platelets 90. Sodium 135, potassium 3.8, chloride 93, glucose 106, BUN 11, creatinine 1.1. LFTs within normal limits. BNP is 185. Lactic acid level 1.1. Troponin less than 0.05. Unit #: [id number] #: [id number] Patient: ASHLEY MEJIA IMAGING: CT angio on 02/03 negative for pulmonary embolism. CARDIOVASCULAR: His EKG shows right bundle branch block, normal sinus rhythm. ASSESSMENT AND PLAN 1. Acute hypoxic, hypercapnic respiratory failure. 2. Acute exacerbation of COPD. Will place on IV steroids, IV Rocephin, Zithromax. Ask Dr. Beach to evaluate. 3. History of chronic respiratory failure. 4. Abnormal D-dimer, but CT scan on 02/03 was negative for pulmonary embolism. 5. History of anxiety and depression. Continue Zoloft. 6. CHF/ischemic cardiomyopathy. Ejection fraction 35%, AICD in the past. He is on Bumex and Lasix both. I confirmed - He brought both bottles with him. 7. History of incarcerated ventral hernia so exploratory laparotomy, repair of hernia on 01/14/17. He had repeat CT scan on 02/03/17, which showed large, somewhat irregular fluid collection in ventral abdominal wall superficial to the fascia, which was suspicious for seroma. 8. Obstructive sleep apnea, not on BiPAP. 9. History of coronary artery disease with previous CABG. 10. Hypertension. 11. Dyslipidemia. 12. Morbid obesity. 13. DVT and GI prophylaxis. Will place the patient on Lovenox and Protonix. Dictated by Cuauhtemoc Fish/russell TD: 02/09/2017 10:26 JOB #: [id number] HISTORY AND PHYSICAL Page 1 of 1 X X HISTORY AND PHYSICAL
--- NOTE | ~2017-02-08 | EKG ---
PATIENT: ASHLEY MEJIA UNIT #: [id number] Ventricular Rate: 86 BPM Atrial Rate: 86 BPM P-R Interval: 182 ms QRS Duration: 148 ms Q-T Interval: 370 ms QTC Calculation(Bezet): 442 ms P [place]: 46 degrees Calculated R [place]: 77 degrees Calculated T [place]: 36 degrees Diagnosis Line: Normal sinus rhythm Diagnosis Line: Possible Left atrial enlargement Diagnosis Line: Right bundle branch block Diagnosis Line: Abnormal ECG Diagnosis Line: When compared with ECG of 11-FEB-2017 11:45, Diagnosis Line: (unconfirmed) Diagnosis Line: Criteria for Septal infarct are no longer Present Diagnosis Line: Confirmed by MASON CHASE MD ([id number]) on 02/12/2017 Diagnosis Line: 7:22:35 AM INTERPRETING MD: RENA CAR
--- NOTE | ~2017-02-08 | CO ---
Unit #: [id number] #: [id number] Patient: ASHLEY MEJIA [id number] [facility]. [place], [place] [address] [id number] I MR#: [id number] NAME: AHSLEY MEJIA ROOM: 576 Age: 46 Sex: M Admission Date: 02/08/2017 : 1970 Attending Physician: Lul Rice M.D. Primary Care Physician: [facility] CONSULTATION REPORT HISTORY OF PRESENT ILLNESS This is a 46-year-old gentleman, recent hospitalization in December. He has a history of chronic obstructive pulmonary disease, on O2 2 L oxygen-dependent, chronic respiratory failure, chronic obstructive sleep apnea currently not on CPAP was due to noncompliance, history of ischemic cardiomyopathy, history of congestive heart failure with 35% ejection fraction, he has a history of previous AICD placement, history of coronary artery disease, history of coronary artery bypass, history of anxiety, history of depression, history of exploratory laparotomy for incarcerated ventral hernia on 01/14/2017 with the hospitalization. The patient stated that he went home after his discharge. He had improvement in his shortness of breath and was according to him physically active, was playing with his son, however, in the past week he has become progressively short of breath. He is having chest tightness, he is having wheezing, he is having cough which is nonproductive. He is having difficulty getting around, so he presented to the hospital on 02/03/2017 with severe symptoms. The patient had CT scan with PE protocol, which was negative and the patient was sent home. The patient persisted with shortness of breath and called EMS and was brought into the hospital. ABG on 6 L in the emergency room; 7.41, 57, 77. The patient was found to be having COPD exacerbation and was placed on steroids, placed on antibiotics. He also had been complaining of fever. The patient denied nausea or vomiting. REVIEW OF SYSTEMS Positive for shortness of breath, cough, wheezing, chest tightness, abdominal pain. No nausea. No vomiting. Yes for fevers. No diarrhea. No dysuria. No hematuria. No hematemesis. No vision changes. No neck stiffness. Positive for fatigue and weakness. PAST MEDICAL HISTORY Significant for ischemic cardiomyopathy with an ejection fraction of 35%, history of mitral valve replacement in 2010, history of CABG two-vessel in 2010. He had history of ynox-af-flazvrkc pulmonary regurgitation with moderate tricuspid regurgitation, obstructive sleep apnea on BiPAP, history of acute kidney injury, history of MRSA pneumonia, hypertension, hyperlipidemia, history of COPD on O2 0.5 L of oxygen, history of anxiety and depression, history of morbid obesity, history of chronic right bundle-branch block. PAST SURGICAL HISTORY Significant for CABG in 2010, AICD placement, mitral valve replacement in 2010, laparoscopic cholecystectomy in 2016 for chronic cholecystitis, history of exploratory lap with incarcerated ventral hernia in 12/2016. Unit #: [id number] #: [id number] Patient: ASHLEY MEJIA The patient has no known drug allergies. HOME MEDICATIONS Include Ventolin 2 puffs q.4 hours p.r.n., Coreg 6.25 mg b.i.d., Bumex 1 mg b.i.d., Zoloft 50 mg daily, Aldactone 25 mg daily, Lasix 40 mg b.i.d., hydralazine 25 mg t.i.d., pravastatin 20 mg daily, aspirin 81 mg daily. SOCIAL HISTORY The patient lives with and son. Used to smoke two packs a day, now he has cut down, still smoking a few cigarettes. Does not drink any alcohol. Denies any polysubstance use. FAMILY HISTORY Negative for any sort of lung disease. PHYSICAL EXAMINATION VITAL SIGNS: T-current 98.0, pulse 108, respiratory rate 18, blood pressure 124/78, and saturation 96% on 3 L nasal cannula. HEENT: Extraocular movements are intact. CHEST: Clear to auscultation bilaterally. CARDIOVASCULAR: Regular rate. No gallop. Very distant heart sounds. ABDOMEN: Soft, nontender, and nondistended. The incision appears clean. There might be some little bit of erythema around it. EXTREMITIES: Do not show significant edema. Pulses are palpable. DIAGNOSTIC STUDIES IMAGING STUDIES: Chest x-ray shows stable pulmonary edema may be a little bit of left lower lobe atelectasis. No clear consolidation. CT with PE protocol on 02/03/2017 shows no PE and no evidence of dissection of the very calcified aorta. LABORATORY RESULTS: Calcium 8.2, glucose 163, BUN and creatinine 18/1.2, potassium 4.4, bicarb of 30. The white count 5.4, hemoglobin 12.9, and platelets of 159. ASSESSMENT AND PLAN 1. Acute on chronic respiratory failure secondary to probable chronic obstructive pulmonary disease exacerbation. The patient on Zithromax and Rocephin and on Solu-Medrol. The patient is also on nebulizers. We will continue those. 2. Obstructive sleep apnea, not on BiPAP. We will order as needed BiPAP here in the hospital. 3. Acute renal insufficiency likely secondary to dehydration. The patient's creatinine is 1.2, baseline is really 0.9, so the patient is going to get a gentle amount of fluid. 4. Abdominal incision appears clear. He has history of seroma. We will check a procalcitonin to see if there is any evidence of infection. Thank you very much for this consult and allowing us to participate in the care of this patient. Please page me at [phone] if you have any questions. Dictated by... Rufino Cabrera M.D. Unit #: [id number] #: [id number] Patient: ASHLEY MEJIA MARIE/doroteol TD: 02/10/2017 03:46 JOB #: [id number] CONSULTATION REPORT Page 1 of 1 X Romel Cabrera MD X CONSULTATION REPORT
--- NOTE | ~2017-02-08 | BMI ---
[facility] Nutrition Therapy DATE: 02/10/17 Patient: ASHLEY MEJIA Physician: BRANDY Address: [address] [facility] [facility] Room/Bed: [address] [place] [address], Zip: [place] [address] Admit Date: 02/08/17 Date of : [birth year] Height: 5 4 Weight: 289 131.5 HIGH BMI NOTE: DX: 46 Y.O. MALE ADMITTED FOR COPD ANTHROPOMETRICS: 5'4", WT: 287# (130 KG), BMI: 49.3 DIET: HEALTHY HEART + 2 GM NA + FLUID RESTRICTION RECOMMENDATIONS: 1. RECOMMEND TO CONTINUE CURRENT DIET ORDER ABOVE TO PROMOTE GRADUAL WEIGHT LOSS TOWARDS HEALTHY BMI (19.0-25.0) OR +/-10%IBW RD WILL F/U PER PROTOCOL Respectfully, LOUIE MEDINA MS, RD, LD [facility] Nutrition[facility] cc: client file
--- NOTE | ~2017-02-08 | EKG ---
PATIENT: ASHLEY MEJIA UNIT #: [id number] Ventricular Rate: 89 BPM Atrial Rate: 89 BPM P-R Interval: 202 ms QRS Duration: 148 ms Q-T Interval: 398 ms QTC Calculation(Bezet): 484 ms P Ashley: -23 degrees Calculated R Ashley: 134 degrees Calculated T Ashley: 30 degrees Diagnosis Line: Normal sinus rhythm Diagnosis Line: Right bundle branch block , plus right ventricular Diagnosis Line: hypertrophy Diagnosis Line: Septal infarct (cited on or before 02-FEB-2017) Diagnosis Line: Abnormal ECG Diagnosis Line: When compared with ECG of 02-FEB-2017 03:40, Diagnosis Line: Right bundle branch block has replaced Diagnosis Line: Non-specific intra-ventricular conduction block Diagnosis Line: Questionable change in initial forces of Septal Diagnosis Line: leads Diagnosis Line: Confirmed by MASON CHASE MD ([id number]) on 02/09/2017 Diagnosis Line: 5:56:06 PM INTERPRETING MD: RENA CAR
--- NOTE | ~2017-02-08 | CO ---
Unit #: [id number] #: [id number] Patient: ASHLEY MEJIA [id number] [place], [place] [address] [id number] I MR#: [id number] NAME: ASHLEY MEJIA ROOM: 576 Age: 46 Sex: M Admission Date: 02/08/2017 : 1970 Attending Physician: Lul Rice M.D. Primary Care Physician: [facility] Silas Consultation Date: 02/09/2017 CONSULTATION REPORT REASON FOR CONSULTATION Volume overload. HISTORY OF PRESENT ILLNESS The patient is a 46-year-old, obese, male who is known to [facility]. He had an echo in September of 2016 which showed an EF of 30-35% with a moderately dilated left atrium. Mild to moderate MR and [place] and moderate TR. He had diffuse atherosclerosis of the aorta. Additionally, in November of 2010, the patient had a CABG x2 with a tissue MVR at [facility]. In January of 2013, the patient had a Lexiscan which showed an EF of 38% and no obvious stress-induced ischemia. He does have a history of ischemic cardiomyopathy and is status post a Medtronic AICD. Additional past medical history includes chronic systolic CHF, hypertension, hyperlipidemia, SVT, COPD with O2 dependency, right bundle branch block, obesity, obstructive sleep apnea and tobaccoism. The patient was most recently in the hospital January 14, 2017, for eventual hernia repair. The patient had an ER visit on February 03, 2017, with complaints of abdominal pain. At that time, he had a CT scan per [facility] protocol which is negative and was sent home. He also had complaints of shortness of breath. The patient states that his shortness of breath continued and became worse. He notes that he has been having increased coughing and chest pain with a deep breath. He does endorse fevers and wheezing. The patient called EMS because of shortness of breath. Upon arrival to the patient, EMS found that he was hypoxic and they had increased his oxygen to 6 L. In the emergency department, he had an ABG with a pH of 7.41, a CO2 of 57, O2 of 77. The patient was admitted for further workup. His EKG was unremarkable and his point of care troponin was less than 0.05. PAST MEDICAL HISTORY 1. Ischemic cardiomyopathy with an EF of 35%, status post Medtronic AICD placement. 2. 2D echocardiogram from October 08, 2016, shows an EF of 30-35% with a moderately dilated left atrium. No intra-atrial shunt or bubble study. Mild to moderate mitral regurgitation and mild to moderate pulmonic valvular regurgitation, moderate tricuspid regurgitation. There is moderate to severe diffuse atherosclerosis of the aorta. 3. Coronary artery bypass graft x2 with tissue mitral valve replacement in November of 2010 at [facility]. 4. February 16, 2013, Lexiscan Cardiolite stress test showed no obvious stress-induced ischemia with ejection fraction of 38%. 5. Chronic systolic CHF. 6. Hypertension. Unit #: [id number] #: [id number] Patient: ASHLEY MEJIA 7. Hyperlipidemia. 8. Nonsustained ventricular tachycardia. 9. Chronic right bundle branch block. 10. COPD. 11. Obstructive sleep apnea. 12. O2 dependency. 13. Asthma. 14. Morbid obesity. 15. Tobaccoism. PAST SURGICAL HISTORY 1. Coronary artery bypass graft x2 with tissue valve replacement in November of 2010. 2. AICD implantation. 3. History of laparoscopic cholecystectomy with laparoscopic ventral repair. 4. History of exploratory laparotomy and repair of incarcerated ventral hernia on January 14, 2017. ALLERGIES No known allergies. HOME MEDICATIONS 1. Ventolin one puff inhalation q.4 hours p.r.n. shortness of breath. 2. Coreg 6.25 mg p.o. b.i.d. 3. Bumex 1 mg p.o. b.i.d. 4. Sertraline 50 mg p.o. daily. 5. Aldactone 25 mg p.o. daily. 6. Lasix 40 mg p.o. b.i.d. 7. Hydroxyzine pamoate 25 mg p.o. three times daily. 8. Atorvastatin 20 mg p.o. at bedtime. 9. Aspirin 81 mg p.o. daily. FAMILY HISTORY His father passed from a myocardial infarction in his 40s. SOCIAL HISTORY The patient is disabled and smokes approximately one pack of cigarettes a day. He uses a wheelchair and leads a sedentary lifestyle. He denies any illicit drug use or alcohol use. REVIEW OF SYSTEMS A ten point review of systems has been done and is considered otherwise negative unless indicated in the HPI. PHYSICAL EXAMINATION GENERAL: The patient is awake, alert, in no acute distress. VITAL SIGNS: His vital signs are temperature 98, heart rate 108, respirations 18, blood pressure 124/78. He is oxygenating 98% on oxygen. HEENT: Head is atraumatic, normocephalic. Pupils equal, round and reactive. Extraocular movements are intact. No drainage from ears or nares. NECK: Supple. Trachea is midline. CHEST: Lungs are diminished with crackles in the bases. CARDIOVASCULAR: S1, S2. Regular rate and rhythm. No murmurs, rubs or gallops appreciated. ABDOMEN: Soft, tender. He has a healing surgical wound on his abdomen. Bowel sounds are positive in all four quadrants. No hepatosplenomegaly is Unit #: [id number] #: [id number] Patient: ASHLEY MEJIA appreciated. SKIN: Warm, dry without any unusual rashes or lesions. EXTREMITIES: No clubbing or cyanosis. Patient has +1 bilateral lower extremity edema. NEUROLOGIC: Patient is alert and oriented x4. He is pleasant and conversant. Cranial nerves II-XII intact. No focal deficits. DIAGNOSTIC STUDIES CARDIOVASCULAR: EKG unremarkable. LABORATORY: Point of care troponin less than 0.05. Sodium 132, potassium 4.4, chloride 93, CO2 30, BUN 18, creatinine 1, glucose 163. ASSESSMENT 1. Acute on chronic systolic CHF and LVEF of 30-35%. 2. Ischemic cardiomyopathy, status post Medtronic AICD. 3. Coronary artery disease, status post CABG x2 with tissue mitral valve replacement in 2010. 4. Nonsustained V-tach. 5. Hypertension. 6. Hyperlipidemia. 7. Acute COPD exacerbation with O2 dependency. 8. Acute on chronic hypoxic and hypercapnic respiratory failure. 9. Chronic right bundle branch block. 10. Obstructive sleep apnea. 11. Morbid obesity with a BMI greater than 35. 12. Recent ventral hernia repair. 13. Tobaccoism. PLAN At this time, will add strict I's and O's, daily weights and a 1500 mL fluid restriction. We advised for the patient to be on a healthy heart low sodium diet. Will check labs. Will stop Lasix and will change Bumex to 1 mg IV b.i.d. Patient is currently not on any LAILA inhibitors. Therefore, I will start Entresto 24/26 mg p.o. b.i.d. Will check a lipid panel and TSH in the morning. Dictated by... Holly Abebe A.P.R.N. for Sid Tapia M.D. AM/haley TD: 02/10/2017 05:39 JOB #: [id number] Unit #: [id number] #: [id number] Patient: ASHLEY MEJIA CONSULTATION REPORT Page 1 of 1 X Holly Abebe APRN X CONSULTATION REPORT
--- NOTE | ~2017-02-08 | CR72 ---
[facility] A Service of [facility] RADIOLOGY TEXT RESULTS PATIENT: ASHLEY MEJIA LOCATION: [facility] 576-01 : 71 UNIT #: [id number] AGE: [address]: Lul Rice MD SEX: M ORDER DR: [id number] [facility] [address] [facility] [place] [facility]. [place], [place] [address] [id number] I MR#: [id number] Acc #: [id number] NAME: ASHLEY MEJIA : 1970 SEX: M STUDY DATE/TIME: 02/12/2017 5:21 UNIT: [facility] ROOM: [facility] STUDY DESCRIPTION: CR Chest Single View Portable Attending Physician: Lul Rice M.D. Ordering Physician: Rufino Cabrera M.D. Primary Care Physician: [facility] MEDICAL IMAGING REPORT This report is preliminary unless electronic signature is present EXAM Frontal chest 02/12/2017 INDICATION 46-year-old male with COPD, short of air, cough, chest pain symptoms for days. Hypertension. Tobacco abuse. Mitral valve replacement. TECHNIQUE Frontal chest compared with 02/10/2017. FINDINGS Cardiac silhouette enlarged but stable interstitial prominence in both lungs unchanged. There is old healed granulomatous disease. Interval worsening of opacities in the left lung base with obscuration of the left hemidiaphragm and blunting of the left CP angle suspicious for pneumonia and an associated effusion. No pneumothorax. IMPRESSION 1. Cardiomegaly with vascular congestion. Worsening opacities in the left lung base most likely reflecting pneumonia or at least dense atelectasis. Small left effusion. Dictated by... Fausto Fiore M.D. THIS IS AN ELECTRONICALLY VERIFIED REPORT Fausto Fiore M.D. at 02/12/2017 12:17 PM CHIRAG/haley TD: 02/12/2017 09:13 JOB #: [id number] MEDICAL IMAGING REPORT [facility] A Service of [facility] RADIOLOGY TEXT RESULTS PATIENT: ASHLEY MEJIA [facility] [address] [id number] [birth year] UNIT #: [id number] AGE: [address]: Lul Rice MD SEX: M ORDER DR: Page 1 of 1 COPY
--- NOTE | ~2017-02-08 | CR72 ---
[facility] A Service of [facility] RADIOLOGY TEXT RESULTS PATIENT: ASHLEY MEJIA LOCATION: [facility] 576-01 : 71 UNIT #: [id number] AGE: [address]: Lul Rice MD SEX: M ORDER DR: [id number] [facility] [address] [facility]. [place], [place] [address] [id number] E MR#: [id number] Acc #: [id number] NAME: ASHLEY MEJIA : 1970 SEX: M STUDY DATE/TIME: 02/08/2017 15:33 UNIT: RADHA ROOM: STUDY DESCRIPTION: CR Chest Single View Portable Attending Physician: Caitie Wallace M.D. Ordering Physician: Caitie Wallace M.D. Primary Care Phys[facility] IMAGING REPORT This report is preliminary unless electronic signature is present EXAMINATION AP portable chest. DATE 02/08/2017, at 15:33. HISTORY 46-year-old male with chest pain, shortness breath and fever for 2 days. COMPARISON AP portable chest, 02/02/2017. FINDINGS Stable moderate cardiac enlargement with signs of valve replacement. Left chest wall pacemaker appears stable. No pneumothorax is seen. Probable minimal left basilar atelectasis or scarring, similar to the previous exam. No gross evidence of pulmonary edema. No pleural effusion or pneumothorax. IMPRESSION 1. Stable cardiomegaly with valve replacement. No evidence of pulmonary edema. 2. Minimal left basilar atelectasis or scarring. No dense lung consolidations. Dictated by... Sondra Santos M.D. THIS IS AN ELECTRONICALLY VERIFIED REPORT Sondra Santos M.D. at 02/09/2017 2:[address] [facility]/micheline [facility] A Service of [facility] RADIOLOGY TEXT RESULTS PATIENT: ASHLEY MEJIA LOCATION: [facility] 576-01 : [birth year] UNIT #: [id number] AGE: [address]: Lul Rice MD SEX: M ORDER DR: TD: 02/08/2017 21:12 JOB #: [id number] MEDICAL IMAGING REPORT Page 1 of 1 COPY
--- NOTE | ~2017-02-08 | EKG ---
PATIENT: ASHLEY MEJIA UNIT #: [id number] Ventricular Rate: 98 BPM Atrial Rate: 98 BPM P-R Interval: 184 ms QRS Duration: 142 ms Q-T Interval: 368 ms QTC Calculation(Bezet): 469 ms P [place]: 49 degrees Calculated R [place]: 101 degrees Calculated T [place]: 39 degrees Diagnosis Line: Normal sinus rhythm Diagnosis Line: Possible Left atrial enlargement Diagnosis Line: Right bundle branch block Diagnosis Line: Septal infarct , age undetermined Diagnosis Line: Abnormal ECG Diagnosis Line: Diagnosis Line: Confirmed by MASON CHASE MD ([id number]) on 02/12/2017 Diagnosis Line: 7:15:10 AM INTERPRETING MD: RENA CAR
--- NOTE | ~2017-02-08 | CT57 ---
[facility] A Service of [facility] RADIOLOGY TEXT RESULTS PATIENT: ASHLEY MEJIA LOCATION: [facility] [address] : [birth year] UNIT #: [id number] AGE: [address]: Lul Rice MD SEX: M ORDER DR: [id number] [facility] [address] [facility]. [place], [place] [address] [id number] I MR#: [id number] Acc #: [id number] NAME: ASHLEY MEJIA : 1970 SEX: M STUDY DATE/TIME: 02/09/2017 12:24 UNIT: [facility] ROOM: [facility] STUDY DESCRIPTION: CT Chest Wo Cont Attending Physician: Lul Rice M.D. Ordering Physician: Lul Rice M.D. Primary Care Physician: [facility] IMAGING REPORT This report is preliminary unless electronic signature is present EXAM CT scan of the chest without contrast, 02/09/2017 COMPARISON 02/02/2017 HISTORY Hypoxia, shortness of air for 5 days with chest pain. Evaluate for pneumonia. TECHNIQUE Axial 5.0 mm images were obtained through the chest without contrast. Sagittal and coronal reconstructions were generated. This CT exam was performed with one or more of the following radiation dose reduction techniques: automatic exposure control, adjustment of mA and/or kV according to patient size, and iterative reconstruction. FINDINGS There is a calcified granuloma in the right lower lobe. There is very minimal left base atelectasis. There are no infiltrates. The thyroid gland appears normal. There is no mediastinal or hilar adenopathy. The visualized portions of the upper abdomen show previous cholecystectomy. The bones are unremarkable. A pacemaker is present. IMPRESSION 1. There is no evidence of pneumonia. There is very minimal left base atelectasis. 2. Otherwise the study is negative. Dictated by... Marc Holman M.D. [facility] A Service of [facility] RADIOLOGY TEXT RESULTS PATIENT: ASHLEY MEJIA LOCATION: [facility] : 71 UNIT #: [id number] AGE: [address]: Lul Rice MD SEX: M ORDER DR: THIS IS AN ELECTRONICALLY VERIFIED REPORT Marc Holman M.D. at 02/10/2017 7:06 AM Johnna TD: 02/09/2017 15:44 JOB #: [id number] MEDICAL IMAGING REPORT Page 1 of 1 COPY
--- NOTE | ~2017-02-08 | DS ---
Unit #: [id number] #: [id number] Patient: ASHLEY MEJIA [id number] [facility]. [place], [place] [address] [id number] I MR#: [id number] NAME: ASHLEY MEJIA ROOM: 576 Age: 46 Sex: M Admission Date: 02/08/2017 : 1970 Discharge Date: 02/13/2017 Attending Physician: Lul Rice M.D. Primary Care Physician: [facility] Silas DISCHARGE SUMMARY Please see H and P for complete details of initial part of hospital stay. Patient was initially admitted secondary to acute/hypercapnic respiratory failure, COPD exacerbation as well as acute on chronic systolic heart failure. Consultation initially was placed to Dr. Joseph and shade as patient has been a routine patient of [facility] in the past. Patient was placed on appropriate fluid restriction and maintained on IV diuresis on the initial part of this stay. These medications have now been transitioned to p.o. diuresis. Consultation was also placed to Dr. Cabrera and shade for evaluation. The patient was maintained on routine pulmonary medications and/or symptom management. He did undergo a 2D echocardiogram from a cardiac standpoint with ejection fraction approximately 30-35%. Evidence of bioprosthetic valve in the mitral position was also noted. Moderate tricuspid regurgitation was noted. No vegetations were noted. From a pulmonary standpoint, his IV Solu-Medrol was gradually weaned, placed on p.o. prednisone. He was subsequently felt to be stable from a pulmonary standpoint. Ultimately, his sputum did grow out Pseudomonas with sensitivity to Levaquin to which he was given prescription for at the time of discharge for additional five days. From a cardiac standpoint, he did undergo a cardiac catheterization by Dr. Garcia. Please see his cardiac catheterization report for details. It did reveal severe coronary disease and medical management was recommended. At this point in time, patient is medically stable. He has been euvolemic. He is ambulatory. He does, unfortunately, have a very poor prognosis secondary to longstanding history of noncompliance as well as multiple medical comorbid conditions. He will be set up for appropriate outpatient followup with [facility], pulmonary services, and I have recommended to him that he can see his primary care physician in approximately one to two weeks plus discharge. Patient is clinically stable for discharge home at the present time. FINAL DISCHARGE DIAGNOSES 1. Acute on chronic respiratory failure. Unit #: [id number] #: [id number] Patient: ASHLEY MEJIA 2. Chronic respiratory failure with O2 dependence. 3. End stage chronic obstructive pulmonary disease. 4. Coronary artery disease with history of coronary artery bypass graft x2. 5. History of mitral valve replacement with tissue valve. 6. Acute on chronic systolic heart failure with ejection fraction 30%. 7. Hypertension. 8. Hyperlipidemia. 9. Chronic right bundle branch block. 10. Obstructive sleep apnea, noncompliant. 11. Severe morbid obesity. 12. Prior history of nonsustained ventricular tachycardia. 13. Prior history of MRSA and abdominal wound. 14. Recent ventral hernia repair December 2016. 15. Longstanding history of noncompliance. 16. Immobility syndrome. FINAL DISCHARGE MEDICATIONS 1. Albuterol, one inhalation q.4 p.r.n. 2. Zoloft 50 mg p.o. daily. 3. Trazodone 50 mg p.o. q. h.s. 4. Vistaril 25 mg p.o. q.8. p.r.n. 5. Lipitor 80 mg p.o. q. h.s. 6. Carvedilol 12.5 mg p.o. b.i.d. 7. Bumex 1 mg p.o. b.i.d. 8. Aspirin 81 mg p.o. daily. 9. Plavix 75 mg p.o. daily. 10. [place] 5/325, one tablet p.o. q.6 p.r.n. #20, prescription given. 11. Aldactone 25 mg p.o. daily. 12. Protonix 40 mg p.o. daily. 13. Imdur 60 mg p.o. daily. 14. Levaquin 500 mg p.o. daily x5 days. DISCHARGE CONDITION Stable. DISCHARGE DISPOSITION Home. PARTS BACK COUNTER MAN PROGNOSIS Poor. CHANCE OF READMISSION Significantly elevated. Dictated by... Lul Rice M.D. JE/haley TD: 02/14/2017 10:30 JOB #: [id number] Unit #: [id number] #: [id number] Patient: ASHLEY MEJIA DISCHARGE SUMMARY Page 1 of 1 X Lul Rice MD X DISCHARGE SUMMARY
[2017-02-08 15:35] LABS: BASOPHIL# 0.1 X10e3 (0-0.3); BASOPHIL% 1.5 % (0-2.5); EOSINOPHIL# 0.4 X10e3 (0-0.7); EOSINOPHIL% 4.2 % (0.0-7.0); HEMATOCRIT 39.8 % (38.0-50.0); LYMPHOCYTE# 1.9 X10e3 (1.0-3.5); LYMPHOCYTE% 19.6 % (17.0-45.0); MEAN CELL VOLUME 90.5 FL (83-96); MEAN CORPUSCULAR HEMOGLOBIN 29.6 PG (28-34); MEAN CORPUSCULAR HGB CONC 32.7 g/dL (30-36); MEAN PLATELET VOLUME 8.5 FL (6.5-11.5); MONOCYTE% 10.1 % (3.0-12.0); NEUTROPHIL# 6.4 X10e3 (1.5-7.1); NEUTROPHIL% 64.6 % (40-75); PLATELET COUNT 90 X10e3 (140-420); RED CELL DISTRIBUTION WIDTH 15.7 % (11.0-15.5); WHITE BLOOD COUNT 9.8 X10e3 (4.0-10.5)
[2017-02-08 15:43] LABS: POC - CKMB 1.5 ng/mL (0.0-7.9); POC - TROPONIN <0.05 ng/mL (<=0.05)
[2017-02-08 15:54] LABS: BILIRUBIN, DIRECT 0.2 mg/dL (0.0-0.2); BILIRUBIN,INDIRECT 0.6 mg/dL (0.0-0.9); BILIRUBIN,TOTAL 0.8 mg/dL (0.2-2.0); CALCIUM SERUM 8.4 mg/dL (8.4-10.2); CREATININE SERUM 1.1 mg/dL (0.6-1.4); GLOM FILT RATE Estimated 80.7 mL/min (>60); POTASSIUM 3.8 mmol/L (3.5-5.1); PROTEIN TOTAL SERUM 6.9 g/dL (6.0-8.3)
[2017-02-08 16:17] LABS: BASOPHIL# 0.1 X10e3 (0-0.3); EOSINOPHIL# 0.3 X10e3 (0-0.7); EOSINOPHIL% 4.5 % (0.0-7.0); HEMATOCRIT 37.4 % (38.0-50.0); HEMOGLOBIN 12.5 gm/dL (13.0-16.0); LYMPHOCYTE# 1.3 X10e3 (1.0-3.5); LYMPHOCYTE% 19.3 % (17.0-45.0); MEAN CELL VOLUME 89.8 FL (83-96); MEAN CORPUSCULAR HGB CONC 33.5 g/dL (30-36); MEAN PLATELET VOLUME 8.1 FL (6.5-11.5); MONOCYTE# 0.8 X10e3 (0-1.0); MONOCYTE% 11.3 % (3.0-12.0); NEUTROPHIL# 4.4 X10e3 (1.5-7.1); NEUTROPHIL% 63.9 % (40-75); RED BLOOD COUNT 4.16 X10e (3.90-5.60); RED CELL DISTRIBUTION WIDTH 15.6 % (11.0-15.5); WHITE BLOOD COUNT 6.9 X10e3 (4.0-10.5)
[2017-02-08 16:18] LABS: DIFF IND NO; PLATELET COUNT 145 X10e3 (140-420)
[2017-02-08 16:43] LABS: DIFF IND NO
[2017-02-08 17:16] LABS: PROTHROMBIN TIME (PATIENT) 10.8 SECONDS (10.0-11.7)
[2017-02-08] MEDS ORDERED: ALBUTEROL17 GM INH (17:46)
[2017-02-08] MEDS ORDERED: COREG6.25 MG PO (17:46)
[2017-02-08] MEDS ORDERED: SERTRALINE HCL50 M1 PO (17:47)
[2017-02-08] MEDS ORDERED: BUMEX1 MG PO (17:47)
[2017-02-08] MEDS ORDERED: HYDROXYZINE PAM25 MG PO (17:48)
[2017-02-08] MEDS ORDERED: ALDACTONE PO (17:48)
[2017-02-08] MEDS ORDERED: LASIX PO (17:48)
[2017-02-08] MEDS ORDERED: PRAVASTATIN SOD20 MG PO (17:49)
[2017-02-08] MEDS ORDERED: ASPIRIN81 M2 PO (17:49)
[2017-02-08 18:33] LABS: URINE SOURCE CLEAN CATCH
[2017-02-08 18:40] LABS: URINE APPEARANCE CLEAR; URINE BILIRUBIN NEG (NEG); URINE BLOOD NEG (NEG); URINE COLOR YELLOW; URINE GLUCOSE NEG (NEG); URINE KETONE NEG (NEG); URINE LEUKOCYTE ESTERASE NEG (NEG); URINE NITRATE NEG (NEG); URINE PROTEIN NEG (NEG); URINE SPECIFIC GRAVITY 1.008 (1.003-1.035)
[2017-02-08 18:45] LABS: CULTURE INDICATED? NO
[2017-02-08 19:12] LABS: ARTERIAL BLD GAS O2 SATURATION 92.5 % (90.0-100.0); ARTERIAL BLOOD GAS CARBOXY HB 2.6 %sat (0.0-9.0); ARTERIAL BLOOD GAS HCO3 36.3 mmol/L; ARTERIAL BLOOD GAS MET HB 0.5 %sat (0.0-2.0)
[2017-02-08 19:13] LABS: ARTERIAL BLOOD GAS ALLEN TEST NORMAL; ARTERIAL BLOOD GAS ART SITE RIGHT RADIAL; ARTERIAL BLOOD GAS DELIVERY NASAL CANNULA; ARTERIAL BLOOD GAS PCO2 57.3 mmHg (35.0-45.0); ARTERIAL DRAW? YES
[2017-02-08 23:17] LABS: BASOPHIL# 0.1 X10e3 (0-0.3); BASOPHIL% 1.3 % (0-2.5); EOSINOPHIL% 0.1 % (0.0-7.0); HEMATOCRIT 39.1 % (38.0-50.0); HEMOGLOBIN 12.9 gm/dL (13.0-16.0); LYMPHOCYTE# 0.5 X10e3 (1.0-3.5); LYMPHOCYTE% 9.2 % (17.0-45.0); MEAN CORPUSCULAR HEMOGLOBIN 29.7 PG (28-34); MEAN PLATELET VOLUME 7.6 FL (6.5-11.5); MONOCYTE# 0.1 X10e3 (0-1.0); MONOCYTE% 1.5 % (3.0-12.0); NEUTROPHIL# 4.7 X10e3 (1.5-7.1); NEUTROPHIL% 87.9 % (40-75); PLATELET COUNT 159 X10e3 (140-420); RED BLOOD COUNT 4.35 X10e (3.90-5.60); RED CELL DISTRIBUTION WIDTH 15.4 % (11.0-15.5); WHITE BLOOD COUNT 5.4 X10e3 (4.0-10.5)
[2017-02-08 23:21] LABS: DIFF IND NO
[2017-02-09 06:14] LABS: CALCIUM SERUM 8.2 mg/dL (8.4-10.2); CREATININE SERUM 1.2 mg/dL (0.6-1.4); GLOM FILT RATE Estimated 72.6 mL/min (>60); POTASSIUM 4.4 mmol/L (3.5-5.1)
[2017-02-10 06:22] LABS: HEMATOCRIT 36.6 % (38.0-50.0); HEMOGLOBIN 11.8 gm/dL (13.0-16.0); MEAN CELL VOLUME 90.4 FL (83-96); MEAN CORPUSCULAR HEMOGLOBIN 29.2 PG (28-34); MEAN CORPUSCULAR HGB CONC 32.3 g/dL (30-36); MEAN PLATELET VOLUME 8.2 FL (6.5-11.5); RED BLOOD COUNT 4.05 X10e (3.90-5.60); RED CELL DISTRIBUTION WIDTH 15.5 % (11.0-15.5)
[2017-02-10 06:23] LABS: WHITE BLOOD COUNT 16.1 X10e3 (4.0-10.5)
[2017-02-10 06:56] LABS: BUN/CREATININE RATIO 22.72; CALCIUM SERUM 8.2 mg/dL (8.4-10.2); CREATININE SERUM 1.1 mg/dL (0.6-1.4); GLOM FILT RATE Estimated 80.7 mL/min (>60); MAGNESIUM 1.8 mg/dL (1.6-3.0); POTASSIUM 3.7 mmol/L (3.5-5.1)
[2017-02-10 07:17] LABS: CHOLESTEROL 171 mg/dL (0-200); HDL CHOLESTEROL 49 mg/dL (29-75); LDL CHOLESTEROL 109 mg/dL (-130); LDL/HDL RATIO 2 RATIO (0-4); TRIGLYCERIDES 63 mg/dL (10-160)
[2017-02-11 05:34] LABS: HEMATOCRIT 36.1 % (38.0-50.0); HEMOGLOBIN 11.8 gm/dL (13.0-16.0); MEAN CELL VOLUME 89.9 FL (83-96); MEAN CORPUSCULAR HEMOGLOBIN 29.3 PG (28-34); MEAN CORPUSCULAR HGB CONC 32.5 g/dL (30-36); RED BLOOD COUNT 4.02 X10e (3.90-5.60); RED CELL DISTRIBUTION WIDTH 15.6 % (11.0-15.5); WHITE BLOOD COUNT 13.4 X10e3 (4.0-10.5)
[2017-02-11 07:45] LABS: CALCIUM SERUM 8.1 mg/dL (8.4-10.2); GLOM FILT RATE Estimated 90.5 mL/min (>60); POTASSIUM 3.9 mmol/L (3.5-5.1)
[2017-02-11 13:40] LABS: CK TOTAL 13 IU/L (36-174)
[2017-02-12 06:23] LABS: HEMATOCRIT 37.4 % (38.0-50.0); HEMOGLOBIN 12.2 gm/dL (13.0-16.0); MEAN CELL VOLUME 90.1 FL (83-96); MEAN CORPUSCULAR HEMOGLOBIN 29.4 PG (28-34); MEAN CORPUSCULAR HGB CONC 32.6 g/dL (30-36); MEAN PLATELET VOLUME 8.1 FL (6.5-11.5); RED BLOOD COUNT 4.16 X10e (3.90-5.60); RED CELL DISTRIBUTION WIDTH 15.4 % (11.0-15.5); WHITE BLOOD COUNT 13.4 X10e3 (4.0-10.5)
[2017-02-12 06:51] LABS: CALCIUM SERUM 8.1 mg/dL (8.4-10.2); CREATININE SERUM 0.8 mg/dL (0.6-1.4); GLOM FILT RATE Estimated 107.9 mL/min (>60)
[2017-02-12 07:18] LABS: PARTIAL THROMBOPLASTIN TIME 20.6 SECONDS (23.5-31.3); PROTHROMBIN TIME (PATIENT) 10.7 SECONDS (10.0-11.7)
[2017-02-13] MEDS ORDERED: PREDNISONE PO (13:30)
[2017-02-13] MEDS ORDERED: LEVAQUIN PO (13:30)
[2017-02-13] MEDS ORDERED: ATORVASTATIN CA80 MG PO (13:31)
[2017-02-13] MEDS ORDERED: ENTRESTO 24 MG1 EACH PO (13:32)
[2017-02-13] MEDS ORDERED: PROTONIX PO (13:33)
[2017-02-13] MEDS ORDERED: CLOPIDOGREL75 MG PO (13:33)
[2017-02-13] MEDS ORDERED: IMDUR-ER60 M1 PO (13:34)
[2017-02-13] MEDS ORDERED: NITROGLYCERIN0.4 MG SL (13:35)
[2017-02-13] MEDS ORDERED: HYDROCODON-ACE1 EAC7 PO (13:36)
[2017-03-20] MEDS ORDERED: TASPRIN325 MG PO (16:53)
== END 2017-02-13 18:12 | disposition home health service (06) | DRG 286 ==
LOC: CED 15:08 → CEDOF 21:00 → C5C 21:00 → CED 21:11 → CEDOF 21:11 → C5C 02-09 08:42 → CEDOF 02-09 08:42 → C5C 02-13 18:12
PROVIDERS: Emergency Medicine; Family Medicine; Internal Medicine; Internal Medicine Cardiovascular Disease; Nurse Practitioner Family
PROC: 4A023N7 Measurement of Cardiac Sampling and Pressure, Left Heart, Percutaneous Approach (ICD-10-PCS; principal; 2017-02-12)
PROC: B211YZZ Fluoroscopy of Multiple Coronary Arteries using Other Contrast (ICD-10-PCS; 2017-02-12)
PROC: B215YZZ Fluoroscopy of Left Heart using Other Contrast (ICD-10-PCS; 2017-02-12)
PROC: 4A023N7 Measurement of Cardiac Sampling and Pressure, Left Heart, Percutaneous Approach (ICD-10-PCS; 2017-02-12)
PROC: B213YZZ Fluoroscopy of Multiple Coronary Artery Bypass Grafts using Other Contrast (ICD-10-PCS; 2017-02-12)
DX: I11.0 Hypertensive heart disease with heart failure (principal); J96.21 Acute and chronic respiratory failure with hypoxia; I47.2 Ventricular tachycardia; J96.22 Acute and chronic respiratory failure with hypercapnia; J44.1 Chronic obstructive pulmonary disease with (acute) exacerbation; T82.858A Stenosis of other vascular prosthetic devices, implants and grafts, initial encounter; F41.9 Anxiety disorder, unspecified; F32.9 Major depressive disorder, single episode, unspecified; I25.5 Ischemic cardiomyopathy; G47.33 Obstructive sleep apnea (adult) (pediatric); E78.5 Hyperlipidemia, unspecified; E66.01 Morbid (severe) obesity due to excess calories; Z95.810 Presence of automatic (implantable) cardiac defibrillator; I70.0 Atherosclerosis of aorta; Z99.81 Dependence on supplemental oxygen; I45.10 Unspecified right bundle-branch block; I08.8 Other rheumatic multiple valve diseases; J45.909 Unspecified asthma, uncomplicated; Z90.49 Acquired absence of other specified parts of digestive tract; Z95.4 Presence of other heart-valve replacement; Z79.82 Long term (current) use of aspirin; F17.210 Nicotine dependence, cigarettes, uncomplicated; I50.23 Acute on chronic systolic (congestive) heart failure; Z68.35 Body mass index [BMI] 35.0-35.9, adult; N28.9 Disorder of kidney and ureter, unspecified; E86.0 Dehydration; Z91.19 Patient's noncompliance with other medical treatment and regimen; I25.10 Atherosclerotic heart disease of native coronary artery without angina pectoris; Y71.8 Miscellaneous cardiovascular devices associated with adverse incidents, not elsewhere classified; I25.119 Atherosclerotic heart disease of native coronary artery with unspecified angina pectoris
CPT/HCPCS: 36415; 36600; 71010; 71250; 80048; 80061; 80076; 81003; 82308; 82550; 82553; 82803; 82947; 83605; 83735; 83880; 84443; 84484; 85025; 85027; 85379; 85610; 85730; 87040; 87070; 87077; 87186; 87205; 87633; 93005; 94640; 94660; 94760; 94761; 97163; 99152; 99153; 99285; C1769; C1887; C1894; C9113; G8979-GP; G8980-GP; J0456; J0696; J1644; J1650; J1815; J2250; J2920; J2930; J3010

== ENCOUNTER 2017-02-24 22:08 | Inpatient (IN) | payer OTHER ==
[~2017-02-24] VITALS: Ht 165.1 cm; Wt 134.0 kg
--- NOTE | ~2017-02-24 | CR72 ---
[facility] A Service of [facility] RADIOLOGY TEXT RESULTS PATIENT: ASHLEY MEJIA LOCATION: [facility] 320-01 : 71 UNIT #: [id number] AGE: [address]: URBAN STERLINGUJ V SEX: M ORDER DR: [id number] [facility] [address] [place], [place] [address] [id number] I MR#: [id number] Acc #: [id number] NAME: ASHLEY MEJIA : 1970 SEX: M STUDY DATE/TIME: 02/24/2017 22:28 UNIT: [facility] ROOM: [facility] STUDY DESCRIPTION: CR Chest Single View Portable Attending Physician: Carine Crisostomo M.D. Ordering Physician: Pete Orozco M.D. [facility] REPORT This report is preliminary unless electronic signature is present EXAM Portable chest. INDICATION Shortness of air and weakness today. PROCEDURE Frontal view of the chest. COMPARISON 02/12/2017 FINDINGS Stable cardiomegaly. No new dense consolidation. No pleural fluid or pneumothorax. IMPRESSION No active process. Dictated by... Pete Martinez M.D. THIS IS AN ELECTRONICALLY VERIFIED REPORT Pete Martinez M.D. at 02/27/2017 10:01 PM ALEX/jessica TD: 02/25/2017 03:51 JOB #: [id number] MEDICAL IMAGING REPORT Page 1 of 1 COPY
--- NOTE | ~2017-02-24 | DS ---
Unit #: [id number] #: [id number] Patient: ASHLEY MEJIA [id number] [address] [address] [id number] I MR#: [id number] NAME: ASHLEY MEJIA ROOM: 320 Age: 46 Sex: M Admission Date: 02/25/2017 : 1970 Discharge Date: 03/01/2017 Attending Physician: Reece Martin M.D. Primary Care Physician: [facility] Silas DISCHARGE SUMMARY DISCHARGE DIAGNOSES Acute on chronic hypoxic and hypercapnic respiratory failure, acute on chronic systolic heart failure, hypertension, chronic obstructive pulmonary disease exacerbation, and morbid obesity. HOSPITAL COURSE The patient is a 46-year-old male, who presented to [facility] Emergency Department on 03/01/2017 secondary to some shortness of breath. In the ED, he was noted to be both hypercapnic and hypoxic. The patient was placed on BiPAP and admitted to the ICU. In addition to his BiPAP, the patient was started on IV steroid for his COPD as well as dobutamine and Bumex for his congestive heart failure. At this time, the patient is much improved. He is back to his baseline regarding his oxygen requirements. As a result, he is being discharged home at this time. The patient is in the process of receiving a trilogy vent. Paperwork has been performed and at this time, prior authorization is being requested from the patient's insurance company. Again given the patient's improvement in oxygen requirements, the patient is being discharged home. DISCHARGE MEDICATIONS Albuterol 1 puff q.4 hours p.r.n. shortness of breath, prednisone 30 mg p.o. daily x7 days, Entresto one p.o. b.i.d., sertraline 50 mg daily, atorvastatin 80 mg daily, hydroxyzine 25 mg p.o. t.i.d., Coreg 6.25 mg p.o. b.i.d., Bumex 1 mg p.o. b.i.d., aspirin 81 mg daily, hydrocodone/acetaminophen 5/325 one p.o. q.6 hours p.r.n., Plavix 75 mg daily, Aldactone 25 mg daily, Protonix 40 mg daily, Imdur ER 60 mg daily, nitroglycerin 0.4 mg sublingual q.5 minutes p.r.n. chest pain 5 dose max. FOLLOWUP The patient should follow up with Dr. Cabrera in 1 to 2 weeks. Dictated by... Darius Abebe M.D. ELAINA/bryan Unit #: [id number] #: [id number] Patient: ASHLEY MEJIA TD: 03/05/2017 01:31 JOB #: [id number] DISCHARGE SUMMARY Page 1 of 1 X Darius Abebe MD X DISCHARGE SUMMARY
--- NOTE | ~2017-02-24 | CR72 ---
[facility] A Service of [facility] RADIOLOGY TEXT RESULTS PATIENT: ASHLEY MEJIA LOCATION: [address] : [birth year] UNIT #: [id number] AGE: [address]: LAQUITA STERLING V SEX: M ORDER DR: [id number] [facility] [address] [facility]. [place], [place] [address] [id number] I MR#: [id number] Acc #: [id number] NAME: ASHLEY MEJIA : 1970 SEX: M STUDY DATE/TIME: 02/25/2017 6:12 UNIT: [facility] ROOM: [facility] STUDY DESCRIPTION: CR Chest Single View Portable Attending Physician: Laquita Sterling M.D. Ordering Physician: Carine Crisostomo M.D. Primary Care Physician: [facility] MEDICAL IMAGING REPORT This report is preliminary unless electronic signature is present EXAM Portable chest. HISTORY Shortness of air and lower extremity edema since yesterday. FINDINGS Today's portable view of the chest compared with yesterday's study. The lungs are clear. The heart size normal. The pacemaker is in good position. There has been no change. Dictated by... Marc Holman M.D. THIS IS AN ELECTRONICALLY VERIFIED REPORT Marc Holman M.D. at 02/25/2017 3:08 PM SUMA/oliver TD: 02/25/2017 08:43 JOB #: [id number] MEDICAL IMAGING REPORT Page 1 of 1 COPY
--- NOTE | ~2017-02-24 | CR63 ---
[facility] A Service of [facility] RADIOLOGY TEXT RESULTS PATIENT: ASHLEY MEJIA LOCATION: [facility] 320-01 : 72 UNIT #: [id number] AGE: [address]: LAQUITA MARTIN V SEX: M ORDER DR: [id number] [facility] [address] [facility]. [place], [place] [address] [id number] I MR#: [id number] Acc #: [id number] NAME: ASHLEY MEJIA : 1970 SEX: M STUDY DATE/TIME: 02/27/2017 09:20 UNIT: [address] ROOM: [facility] STUDY DESCRIPTION: CR Chest 2 View Attending Physician: Laquita Martin M.D. Ordering Physician: Laquita Martin M.D. Primary Care Physician: [facility] MEDICAL IMAGING REPORT This report is preliminary unless electronic signature is present EXAM Chest 2 views 02/27/2017 09:20 hours HISTORY A 46-year-old man with history of respiratory failure, shortness of air for 1 week. COMPARISON 02/25/2017 FINDINGS Upright PA and lateral views of the chest demonstrate median sternotomy change with stable cardiomegaly and pacer device. There is pulmonary venous distension similar to prior exam. The left costophrenic angle and left retrocardiac region is difficult to assess on this exam. A small left effusion cannot be excluded. IMPRESSION 1. Stable cardiomegaly and pacer device. 2. There is stable pulmonary venous distension without definite edema or pneumonia. 3. The left costophrenic angle is difficult to assess on this exam. A small left effusion cannot be excluded. Dictated by... Dolly Caban M.D. THIS IS AN ELECTRONICALLY VERIFIED REPORT Dolly Caban M.D. at 02/27/2017 1:47 PM Juan TD: 02/27/2017 13:00 [facility] A Service of [facility] RADIOLOGY TEXT RESULTS PATIENT: ASHLEY MEJIA LOCATION: A 320-01 : 72 UNIT #: [id number] AGE: [address]: URBAN MARTINUJ V SEX: M ORDER DR: JOB #: [id number] MEDICAL IMAGING REPORT Page 1 of 1 COPY
--- NOTE | ~2017-02-24 | EKG ---
PATIENT: ASHLEY MEJIA UNIT #: [id number] Ventricular Rate: 100 BPM Atrial Rate: 100 BPM P-R Interval: 194 ms QRS Duration: 142 ms Q-T Interval: 376 ms QTC Calculation(Bezet): 485 ms P [place]: 78 degrees Calculated R [place]: 57 degrees Calculated T [place]: 63 degrees Diagnosis Line: Sinus rhythm with occasional Premature ventricular Diagnosis Line: complexes and Premature atrial complexes Diagnosis Line: Possible Left atrial enlargement Diagnosis Line: Right bundle branch block Diagnosis Line: Anteroseptal infarct (cited on or before Diagnosis Line: 02-FEB-2017) Diagnosis Line: Abnormal ECG Diagnosis Line: When compared with ECG of 25-FEB-2017 15:27, Diagnosis Line: (unconfirmed) Diagnosis Line: Premature ventricular complexes are now Present Diagnosis Line: Premature atrial complexes are now Present Diagnosis Line: Serial changes of Anteroseptal infarct Present Diagnosis Line: Confirmed by MASON CHASE MD ([id number]) on 02/26/2017 Diagnosis Line: 4:55:56 PM INTERPRETING MD: RENA CAR
--- NOTE | ~2017-02-24 | EKG ---
PATIENT: ASHLEY MEJIA UNIT #: [id number] Ventricular Rate: 84 BPM Atrial Rate: 84 BPM P-R Interval: 208 ms QRS Duration: 152 ms Q-T Interval: 404 ms QTC Calculation(Bezet): 477 ms P [place]: 59 degrees Calculated R [place]: 77 degrees Calculated T [place]: 57 degrees Diagnosis Line: Normal sinus rhythm Diagnosis Line: Possible Left atrial enlargement Diagnosis Line: Right bundle branch block Diagnosis Line: Anteroseptal infarct , age undetermined Diagnosis Line: T wave abnormality, consider lateral ischemia Diagnosis Line: Abnormal ECG Diagnosis Line: When compared with ECG of 12-FEB-2017 05:44, Diagnosis Line: Anteroseptal infarct is now Present Diagnosis Line: Confirmed by GRACIELA CHICAS MD ([id number]) on Diagnosis Line: 02/28/2017 10:45:36 AM INTERPRETING MD: AVIVA CAR
--- NOTE | ~2017-02-24 | EKG ---
PATIENT: ASHLEY MEJIA UNIT #: [id number] Ventricular Rate: 89 BPM Atrial Rate: 89 BPM P-R Interval: 194 ms QRS Duration: 140 ms Q-T Interval: 398 ms QTC Calculation(Bezet): 484 ms P [place]: 70 degrees Calculated R [place]: 73 degrees Calculated T [place]: 72 degrees Diagnosis Line: Normal sinus rhythm Diagnosis Line: Possible Left atrial enlargement Diagnosis Line: Right bundle branch block Diagnosis Line: Anteroseptal infarct (cited on or before Diagnosis Line: 02-FEB-2017) Diagnosis Line: Abnormal ECG Diagnosis Line: When compared with ECG of 24-FEB-2017 22:23, Diagnosis Line: (unconfirmed) Diagnosis Line: Questionable change in initial forces of Septal Diagnosis Line: leads Diagnosis Line: Confirmed by GRACIELA CHICAS MD ([id number]) on Diagnosis Line: 02/28/2017 10:47:43 AM INTERPRETING MD: AVIVA CAR
--- NOTE | ~2017-02-24 | BMI ---
[facility] Nutrition Therapy DATE: 02/25/17 Patient: ASHLEY MEJIA Physician: RADHA Address: [address] [facility] Room/Bed: [address], Zip: [place] [address] Admit Date: 02/25/17 Date of : [birth year] Height: 5 5 Weight: 295 134 HIGH BMI NOTE: DX: 46 Y.0. MALE ADMITTED FOR RESP FAILURE, SOA, CHF EXAC ANTHROPOMETRICS: 5'5", WT: 295# (134 KG), BMI: 49.1 DIET: CLEAR LIQUID + 2 GM NA RECOMMENDATIONS: 1. ONCE MEDICALLY FEASIBLE, ADVANCE DIET INDICATED TO HEALTHY HEART TO PROMOTE GRADUAL WEIGHT LOSS TOWARDS HEALTHY BMI (19.0-25.0) OR +/-10%IBW RD WILL F/U PER PROTOCOL Respectfully, Buddy Jaffe RD, LD Food and Nutritional Services [facility] cc: client file
--- NOTE | ~2017-02-24 | CO ---
Unit #: [id number] #: [id number] Patient: ASHLEY MEJIA [id number] [address] [address] [id number] I MR#: [id number] NAME: ASHLEY MEJIA ROOM: 320 Age: 46 Sex: M Admission Date: 02/25/2017 : 1970 Attending Physician: Reece Martin M.D. Primary Care Physician: [facility] Consultation Date: 02/27/2017 CONSULTATION REPORT HISTORY OF PRESENT ILLNESS A 46-year-old gentleman known from admission from last month, acute on chronic hypercapnic hypoxic respiratory failure. The patient initially was admitted to the ICU, started on steroids and diuresis. He was sent home. For the past several days, the patient has been having increasing shortness of air, cough productive of deep yellow sputum, lower extremity swelling. Denies any sort of chest pain, tightness, or palpitations. The patient has a history of an AICD, history of ischemic cardiomyopathy, history of coronary artery bypass graft in 2010 with tissue mitral valve repair. The patient had a stress test which showed an ejection fraction of 38% in 2012. He has a history of obstructive sleep apnea, which has not been treated. He has continued tobacco use. He is on 2 L O2 dependent for his COPD. The patient was supposed to see us in the office to try to get auto BiPAP titration last week; however, he became ill before he could be seen. PAST MEDICAL HISTORY Significant for coronary artery disease, coronary artery bypass graft, mild to moderate MR with jaiq-jp-nzhesrae tricuspid regurgitation, moderate to severe atherosclerosis of aorta, history of chronic systolic heart failure, history of O2 dependent chronic obstructive pulmonary disease, history of nonsustained VT, history of hypertension, history of hyperlipidemia, history of chronic right bundle-branch block; history of COPD, on home O2 dependency, history of sleep apnea, history of asthma, history of morbid obesity. SOCIAL HISTORY The patient has continued to use tobacco. No illicit drug or alcohol use. ALLERGIES The patient has no known drug allergies. HOME MEDICATIONS Include albuterol p.r.n., Zoloft 50 mg daily, trazodone 50 mg bedtime, Vistaril 25 mg t.i.d., Lipitor 80 mg q.h.s., Coreg 12.5 mg b.i.d., Bumex 1 mg b.i.d., aspirin 81 mg daily, Plavix 75 mg daily, Aldactone 25 mg daily, Protonix 40 mg daily, Imdur 60 mg daily, and Nitrostat p.r.n. FAMILY HISTORY Noncontributory. REVIEW OF SYSTEMS Positive for shortness of breath, productive cough yellow. No chest pain, tightness, palpitations, or syncope. The patient does not have nausea, Unit #: [id number] #: [id number] Patient: ASHLEY MEJIA vomiting, diarrhea, or vision changes. PHYSICAL EXAMINATION VITAL SIGNS: T current is 97.6, pulse 85, respiratory rate 20, blood pressure is 111/66. In's and out's is 4169 in and 2550 out. DIAGNOSTIC STUDIES LABORATORY RESULTS: Sputum culture is normal respiratory marni. Procalcitonin is less than 0.05. Basic metabolic panel is significant for BUN and creatinine of 28/0.7, bicarb of 40. ASSESSMENT Chronic obstructive pulmonary disease. The patient is currently being treated with Solu-Medrol 40 mg once a day, also on scheduled nebs. The patient is being diuresed, is being treated with doxycycline. We are going to try and see if we can do a schedule for a Trilogy or a nocturnal ventilator to help with what I suspect is obesity hypoventilation due to significant hypercapnia present on licensed psychiatric technician blood gas on 02/26/2017. Thank you very much for this consult and allowing us to participate in the care of this patient. Please page me at [phone] if you have any questions. Dictated by... Cuauhtemoc Hale/bryan TD: 02/28/2017 16:50 JOB #: [id number] CONSULTATION REPORT Page 1 of 1 X Romel Cabrera MD CONSULTATION REPORT
--- NOTE | ~2017-02-24 | HP ---
Unit #: [id number] #: [id number] Patient: ASHLEY MEJIA [id number] [address] [place], [place] [address] [id number] I MR#: [id number] NAME: ASHLEY MEJIA ROOM: [facility] Age: 46 Sex: M Admission Date: 02/25/2017 : 1970 Attending Physician: Reece Martin M.D. Primary Care Physician: [facility] HISTORY AND PHYSICAL CHIEF COMPLAINT Acute on chronic hypercapnic, hypoxic respiratory failure. HISTORY This 46-year-old male with ischemic cardiomyopathy, O2 dependent COPD, is admitted for worsening shortness of breath. The patient states he was well until the past couple of days when he developed increasing shortness of breath with a deep cough productive of yellow sputum. Has noted increasing swelling of his legs. Denies fevers, sweats or chills, but has been experiencing some wheezing. EMS was called and the patient was placed on CPAP and brought to this emergency department late last evening when he was changed over to BiPAP. Chest x-ray shows no acute disease, his BNP is 900, and he is somewhat swollen on exam. His chest actually sounds fairly clear. He was given 2 mg of IV Bumex, along with 125 mg of Solu-Medrol. His initial ABG showed hypercapnic/hypoxic respiratory failure and his BiPAP has been adjusted. He is somewhat somnolent but easily arousable. A call was also made to pulmonary who will be seeing the patient in the morning. Patient was last admitted to this facility 02/08/2017 through 02/13/2017 for acute respiratory failure, secondary to volume overload. PAST MEDICAL HISTORY 1. Obstructive sleep apnea. Apparently there were issues with obtaining CPAP or BiPAP in the past and I do not believe patient is using BiPAP. 2. Ischemic cardiomyopathy, status post two vessel CABG in 2010 with ejection fraction of 35%. The patient is status post tissue mitral valve replacement 11/2010. He has a history of nonsustained ventricular tachycardiac and is status post AICD placement. 3. Last Lexiscan stress test 09/2012 was negative for obvious stress induced ischemia. Last evening 09/2016 showed mild to moderate MR, mild to moderate pulmonary valve regurgitation, moderate TR, and moderate severe diffuse atherosclerosis of the aorta. 4. Vancomycin induced kidney injury when treated with vancomycin for MRSA pneumonia. 5. Essential hypertension. 6. Hyperlipidemia. 7. COPD on 2.5 to 3 L of oxygen. 8. Depression. 9. Chronic right bundle branch block. 10. Morbid obesity. 11. Laparoscopic cholecystectomy 06/2016. 12. Admission in December for exploratory lap for incarcerated hernias Unit #: [id number] #: [id number] Patient: ASHLEY MEJIA requiring repair. ALLERGIES No known drug allergies. HOME MEDICATIONS Albuterol as needed; Zoloft 50 mg daily; trazodone 50 mg q.h.s.; Vistaril 25 mg t.i.d. p.r.n.; Lipitor 80 mg q.h.s.; Coreg 12.5 mg b.i.d.; Bumex 1 mg b.i.d.; aspirin 81 mg daily; Plavix 75 mg daily; Aldactone 25 mg daily; Protonix 40 mg daily; Imdur 60 mg daily; nitroglycerin p.r.n. FAMILY HISTORY Negative for lung disease. SOCIAL HISTORY The patient lives with his and son. He smoked up to two packs per day of tobacco but over the past year has cut down and now is smoking six cigarettes a week. Does not drink alcohol. REVIEW OF SYSTEMS Difficult to obtain as patient is somewhat somnolent but easily arousable. He admits to shortness of breath, sleep apnea, hypertension, hyperlipidemia, OIL CHANGE TECHNICIAN, above mentioned surgeries, productive cough, edema. All other systems were reviewed and otherwise negative. PHYSICAL EXAMINATION GENERAL: Somnolent but arousable, morbidly obese, 46-year-old male who currently I in no acute distress. VITAL SIGNS: I do not have a temperature yet. Respirations 14, blood pressure 97/77. Pulse is 74. HEENT: Eyes - PERRLA. Extraocular muscles are intact. Pharynx unable to view the oropharynx due to BiPAP. NECK: Supple without adenopathy or thyromegaly. CHEST: Diminished breath sounds but clear. CARDIAC: Normal S1 and S2 without definite murmur. ABDOMEN: Bowel sounds are diminished. Nontender. No hepatosplenomegaly or masses. Nondistended. Well healed scar is noted. EXTREMITIES: With 2 to 3+ bilateral pedal edema with some tenderness with palpation over the calves. NEUROLOGIC: Patient is somnolent but arousable. His cranial nerves are intact. He is able to move all extremities. DIAGNOSTIC STUDIES LABORATORY STUDIES: Hematocrit is 39.7, white blood count is 11.7, normal platelet count. SMA 7 - potassium is 3.2, chloride is 89, CO2 41, BNP is 983. Cardiac markers are negative. ABG - pH 7.298, pCO2 88, pO2 104, O2 saturation 94% on BiPAP 14/6. FIO2 40%. IMAGING STUDIES: Chest x-ray - no acute disease but it is hard for me to see behind the left heart border due to cardiomegaly. CARDIOLOGY STUDIES: EKG shows sinus rhythm, rate 84 with an old right bundle branch block. Nonspecific ST wave abnormalities. ASSESSMENT 1. Acute on chronic hypercapnic/hypoxic respiratory failure. Patient admits to a productive cough. Does appear to be somewhat fluid overloaded. Has underlying COPD on home oxygen and obstructive sleep Unit #: [id number] #: [id number] Patient: ASHLEY MEJIA. 2. Morbid obesity. 3. Ongoing tobacco use. 4. Ischemic cardiomyopathy, ejection fraction 35%, status post AICD for nonsustained ventricular tachycardia and status post tissue mitral valve replacement. 5. Essential hypertension with somewhat low blood pressure at present. 6. Hypokalemia. 7. History of vancomycin induced kidney disease in the past with normal renal function currently. 8. Hyperlipidemia. PLANS 1. Antibiotics pending sputum cultures. Repeat chest x-ray in the morning. 2. Continue steroids, will order DuoNeb, continue BiPAP. Pulmonary was already consulted in the ER and they will see in the morning. 3. IV Bumex, obtain I's and O's and daily weights. 4. Decrease Coreg for now as blood pressure is borderline low. 5. Replace potassium and check magnesium. 6. Check Dopplers of the legs and will order DVT prophylaxis. 7. Further workup depending on above. 8. Long-term prognosis is guarded given patient's multiple comorbidities and ongoing tobacco use. Critical care time spent in evaluating this patient was 35 minutes. Dictated by Cuauhtemoc Hector/rosa maria TD: 02/25/2017 06:57 JOB #: [id number] HISTORY AND PHYSICAL Page 1 of 1 X Carine Crisostomo MD HISTORY AND PHYSICAL
--- NOTE | ~2017-02-24 | CO ---
Unit #: [id number] #: [id number] Patient: ASHLEY MEJIA [id number] [address] [place], [place] [address] [id number] MR#: [id number] NAME: ASHLEY MEJIA ROOM: 320 Age: 46 Sex: M Admission Date: 02/25/2017 : 1970 Attending Physician: Reece Martin M.D. Primary Care Physician: [facility] Consultation Date: 02/25/2017 CONSULTATION REPORT REASON FOR CONSULTATION CHF. HISTORY OF PRESENT ILLNESS The patient is a 46-year-old male, who is known to us from an admission from last month. He was admitted with an acute on chronic hypercapnic hypoxic respiratory failure. He is initially admitted to the ICU and started on IV steroids and diuresis and for the last couple of days, he has been having increasing shortness of breath with deep productive cough with yellow sputum. He has also noted some swelling in his lower extremities. He denies any chest pain, pressure, tightness, or palpitations. The patient has significant cardiac history in the past, consistent with ischemic cardiomyopathy, history of ICD, history of coronary artery bypass graft surgery in 2010 with tissue mitral valve done at the [facility]. He had a stress test in 2012 that showed no stress-induced ischemia with ejection fraction of 38%, which is unchanged. He has significant COPD with O2 dependency, obstructive sleep apnea and continued tobacco use. PAST MEDICAL HISTORY 1. Significant for coronary artery disease with coronary artery bypass graft surgery and tissue MVR in 11/2010, history of stress test on 02/16/2013 showing no ischemia with EF of 38%, ischemic cardiomyopathy with EF of 35, status post Medtronic ICD. 2. Vfjf-km-agdzhqtj MR with uhkt-to-bdfqogym TR. 3. Moderate to severe diffuse atherosclerosis of the aorta. 4. Chronic systolic heart failure. 5. O2 dependent chronic obstructive pulmonary disease. 6. Nonsustained VT. 7. Hypertension. 8. Hyperlipidemia. 9. Chronic right bundle-branch block. 10. O2 dependency, obstructive sleep apnea, asthma, morbid obesity. SOCIAL HISTORY The patient has continued tobacco use. No illicit drug or alcohol use. ALLERGIES No known drug allergies. HOME MEDICATIONS Albuterol p.r.n., Zoloft 50 mg daily, trazodone 50 mg at bedtime, Vistaril 25 mg t.i.d. p.r.n., Lipitor 80 mg q.h.s., Coreg 12.5 mg b.i.d., Bumex 1 mg b.i.d., aspirin 81 mg daily, Plavix 75 mg daily, Aldactone 25 mg daily, Unit #: [id number] #: [id number] Patient: ASHLEY MEJIA Protonix 40 mg daily, Imdur 60 mg daily, p.r.n. Nitrostat. FAMILY HISTORY Noncontributory. REVIEW OF SYSTEMS Complains of shortness of breath, productive cough. No chest pain, pressure tightness, palpitations, near syncope, syncope, headache, numbness, tingling, changes in visual field, abdominal pain, nausea, vomiting, or diarrhea. All other review of systems is negative. PHYSICAL EXAMINATION GENERAL: The patient is awake and alert. No acute distress. Color is pink. SKIN: Warm and dry. VITAL SIGNS: Afebrile, heart rate 102, blood pressure 129/72. HEENT: Normal carotid upstrokes. No auscultated bruit. Negative JVD. Lying supine. Negative hepatojugular reflux. CHEST: Respirations are regular and unlabored at rest. Bilateral breath sounds have decreased air entry with wheezes. HEART: S1, S2. Regular rate and rhythm. No murmurs, rubs, or gallops are heard. ABDOMEN: Soft, nontender, and nondistended. Positive bowel sounds in all 4 quadrants. No ascites noted. EXTREMITIES: 1+ bilateral lower extremity edema. DIAGNOSTIC STUDIES EKG on admission shows sinus rhythm, right bundle-branch block, nonspecific lateral T-wave abnormalities, intraventricular conduction delay. IMAGING STUDIES: Chest x-ray shows no active process on admission. Repeat chest x-ray is unchanged. LABORATORY RESULTS: Sodium 135, potassium 3.5, chloride 89, CO2 of 38, BUN 22, creatinine 1.0, glucose 143, magnesium 1.5, troponin negative x3. BNP 983. INR 0.9. White blood cell count 8, hemoglobin 12.12, hematocrit 37, platelet count 154. IMPRESSION 1. Acute on chronic systolic heart failure. 2. Acute respiratory failure. 3. Severe ischemic cardiomyopathy. 4. Left ventricular ejection fraction of 30% to 35%. 5. History of coronary artery disease with coronary artery bypass graft in 2010 with tissue mitral valve replacement. 6. O2 dependent chronic obstructive pulmonary disease. 7. Presence of Medtronic implantable cardioverter-defibrillator. 8. History of nonsustained ventricular tachycardia. 9. Obstructive sleep apnea. 10. Morbid obesity. 11. Continued tobacco abuse. PLAN The patient was started on dobutamine drip at 2 mcg per kilos per minute. His magnesium was supplemented with 400 mg mag oxide p.o. b.i.d. for 2 days and his beta-swapna was held. Further recommendations pending hospital course. Unit #: [id number] #: [id number] Patient: ASHLEY MEJIA Dictated by... EUGENE Montez TD: 02/27/2017 05:45 JOB #: [id number] CONSULTATION REPORT Page 1 of 1 X X CONSULTATION REPORT
--- NOTE | ~2017-02-24 | US84 ---
[id number] [facility] [address] [place], [place] [address] [id number] I MR#: [id number] Acc #: [id number] NAME: ASHLEY MEJIA : 1970 SEX: M STUDY DATE/TIME: 02/25/2017 18:42 UNIT: [id number] ROOM: 320 STUDY DESCRIPTION: US LE Veins Complete Lorenzo Stdy Attending Physician: Reece Martin M.D. Ordering Physician: Carine Crisostomo M.D. Primary Care Physician: [facility] MEDICAL IMAGING REPORT This report is preliminary unless electronic signature is present EXAM Bilateral lower extremity venous Doppler INDICATIONS Bilateral lower extremity ankle and feet pain and edema for the past several months. Symptoms worse over the past 48 hours. PROCEDURE Shah-scale, color Doppler, spectral imaging deep veins of the right and left leg. COMPARISON None FINDINGS Deep veins of the right and left leg compress normally and show normal color Doppler and spectral characteristics. IMPRESSION No evidence for DVT in the right or left leg. Dictated by... Pete Martinez M.D. THIS IS AN ELECTRONICALLY VERIFIED REPORT Pete Martinez M.D. at 02/27/2017 10:01 PM EED/yoli TD: 02/26/2017 11:26 JOB #: [id number] MEDICAL IMAGING REPORT Page 1 of 1 COPY
[~2017-02-24 22:08] MED LIST changes: +ALDACTONE PO; +ATORVASTATIN CA80 MG PO; +CLOPIDOGREL75 MG PO; +ENTRESTO 24 MG1 EACH PO; +HYDROCODON-ACE1 EAC7 PO; +IMDUR-ER60 M1 PO; +LEVAQUIN PO; +NITROGLYCERIN0.4 MG SL; +PROTONIX PO; +SERTRALINE HCL50 M1 PO
[2017-02-24 22:42] LABS: POC - TROPONIN <0.05 ng/mL (<=0.05)
[2017-02-24 22:52] LABS: BASOPHIL# 0.1 X10e3 (0-0.3); BASOPHIL% 0.4 % (0-2.5); EOSINOPHIL# 0.1 X10e3 (0-0.7); EOSINOPHIL% 1.1 % (0.0-7.0); HEMATOCRIT 39.7 % (38.0-50.0); HEMOGLOBIN 12.9 gm/dL (13.0-16.0); LYMPHOCYTE% 8.8 % (17.0-45.0); MEAN CELL VOLUME 90.7 FL (83-96); MEAN CORPUSCULAR HEMOGLOBIN 29.5 PG (28-34); MEAN CORPUSCULAR HGB CONC 32.6 g/dL (30-36); MEAN PLATELET VOLUME 7.6 FL (6.5-11.5); MONOCYTE# 0.9 X10e3 (0-1.0); MONOCYTE% 7.7 % (3.0-12.0); NEUTROPHIL# 9.6 X10e3 (1.5-7.1); PLATELET COUNT 169 X10e3 (140-420); RED BLOOD COUNT 4.38 X10e (3.90-5.60); RED CELL DISTRIBUTION WIDTH 14.8 % (11.0-15.5); WHITE BLOOD COUNT 11.7 X10e3 (4.0-10.5)
[2017-02-24 22:57] LABS: DIFF IND NO
[2017-02-24 23:13] LABS: CALCIUM SERUM 8.8 mg/dL (8.4-10.2); GLOM FILT RATE Estimated 90.5 mL/min (>60); POTASSIUM 3.2 mmol/L (3.5-5.1)
[2017-02-25 00:43] LABS: ARTERIAL BLD GAS O2 SATURATION 93.9 % (90.0-100.0); ARTERIAL BLOOD GAS CARBOXY HB 3.5 %sat (0.0-9.0); ARTERIAL BLOOD GAS MET HB 0.8 %sat (0.0-2.0); ARTERIAL BLOOD GAS pH 7.298 (7.350-7.450)
[2017-02-25 00:47] LABS: ARTERIAL BLOOD GAS ALLEN TEST NORMAL; ARTERIAL BLOOD GAS ART SITE RIGHT RADIAL; ARTERIAL BLOOD GAS DELIVERY BIPAP 14/6; ARTERIAL BLOOD GAS PCO2 87.9 mmHg (35.0-45.0); ARTERIAL DRAW? YES
[2017-02-25 03:19] LABS: ARTERIAL BLD GAS O2 SATURATION 93.1 % (90.0-100.0); ARTERIAL BLOOD GAS HCO3 44.4 mmol/L; ARTERIAL BLOOD GAS MET HB 0.7 %sat (0.0-2.0); ARTERIAL BLOOD GAS PO2 81.6 mmHg (80.0-100); ARTERIAL BLOOD GAS pH 7.334 (7.350-7.450)
[2017-02-25 03:23] LABS: ARTERIAL BLOOD GAS ART SITE RIGHT BRACHIAL; ARTERIAL BLOOD GAS DELIVERY BIPAP 18/8; ARTERIAL BLOOD GAS PCO2 83.5 mmHg (35.0-45.0); ARTERIAL DRAW? YES
[2017-02-25 09:08] LABS: BASOPHIL% 0.1 % (0-2.5); EOSINOPHIL% 0.1 % (0.0-7.0); HEMOGLOBIN 12.2 gm/dL (13.0-16.0); LYMPHOCYTE# 0.3 X10e3 (1.0-3.5); MEAN CORPUSCULAR HEMOGLOBIN 29.7 PG (28-34); MEAN PLATELET VOLUME 7.6 FL (6.5-11.5); MONOCYTE# 0.1 X10e3 (0-1.0); MONOCYTE% 1.3 % (3.0-12.0); NEUTROPHIL# 7.6 X10e3 (1.5-7.1); NEUTROPHIL% 94.5 % (40-75); PLATELET COUNT 154 X10e3 (140-420); RED BLOOD COUNT 4.11 X10e (3.90-5.60); RED CELL DISTRIBUTION WIDTH 14.8 % (11.0-15.5)
[2017-02-25 09:10] LABS: DIFF IND NO
[2017-02-25 09:33] LABS: INR 0.9; PARTIAL THROMBOPLASTIN TIME 22.6 SECONDS (23.5-31.3); PROTHROMBIN TIME (PATIENT) 10.3 SECONDS (10.0-11.7)
[2017-02-25 09:53] LABS: ALBUMIN SERUM 3.4 g/dL (3.5-5.0); BILIRUBIN,TOTAL 0.7 mg/dL (0.2-2.0); BUN/CREATININE RATIO 15.55; CALCIUM SERUM 8.6 mg/dL (8.4-10.2); CREATININE SERUM 0.9 mg/dL (0.6-1.4); GLOM FILT RATE Estimated 102.8 mL/min (>60); MAGNESIUM 1.5 mg/dL (1.6-3.0); POTASSIUM 3.9 mmol/L (3.5-5.1); PROTEIN TOTAL SERUM 6.4 g/dL (6.0-8.3)
[2017-02-25 16:50] LABS: CK TOTAL 52 IU/L (36-174)
[2017-02-25 20:07] LABS: ARTERIAL BLD GAS O2 SATURATION 95.8 % (90.0-100.0); ARTERIAL BLOOD GAS CARBOXY HB 1.3 %sat (0.0-9.0); ARTERIAL BLOOD GAS HCO3 41.5 mmol/L; ARTERIAL BLOOD GAS MET HB 0.2 %sat (0.0-2.0); ARTERIAL BLOOD GAS pH 7.379 (7.350-7.450)
[2017-02-25 20:10] LABS: ARTERIAL BLOOD GAS ART SITE RIGHT BRACHIAL; ARTERIAL BLOOD GAS DELIVERY NASAL CANNULA; ARTERIAL BLOOD GAS PCO2 70.3 mmHg (35.0-45.0); ARTERIAL DRAW? YES
[2017-02-26 05:01] LABS: ARTERIAL BLD GAS O2 SATURATION 96.3 % (90.0-100.0); ARTERIAL BLOOD GAS CARBOXY HB 0.9 %sat (0.0-9.0); ARTERIAL BLOOD GAS HCO3 43.1 mmol/L; ARTERIAL BLOOD GAS MET HB 0.7 %sat (0.0-2.0); ARTERIAL BLOOD GAS PO2 87.7 mmHg (80.0-100); ARTERIAL BLOOD GAS pH 7.448 (7.350-7.450)
[2017-02-26 05:02] LABS: ARTERIAL BLOOD GAS ALLEN TEST NORMAL; ARTERIAL BLOOD GAS ART SITE RIGHT RADIAL; ARTERIAL BLOOD GAS DELIVERY BIPAP 18/8; ARTERIAL BLOOD GAS PCO2 62.4 mmHg (35.0-45.0); ARTERIAL DRAW? YES
[2017-02-26 06:17] LABS: CALCIUM SERUM 8.3 mg/dL (8.4-10.2); GLOM FILT RATE Estimated 90.5 mL/min (>60); POTASSIUM 3.5 mmol/L (3.5-5.1)
[2017-02-27 06:49] LABS: CALCIUM SERUM 8.4 mg/dL (8.4-10.2); CREATININE SERUM 0.7 mg/dL (0.6-1.4); POTASSIUM 3.9 mmol/L (3.5-5.1)
[2017-02-28 04:55] LABS: HEMATOCRIT 34.5 % (38.0-50.0); MEAN CELL VOLUME 90.7 FL (83-96); RED BLOOD COUNT 3.8 X10e (3.90-5.60); RED CELL DISTRIBUTION WIDTH 14.4 % (11.0-15.5); WHITE BLOOD COUNT 14.3 X10e3 (4.0-10.5)
[2017-02-28 07:42] LABS: CALCIUM SERUM 8.5 mg/dL (8.4-10.2); CREATININE SERUM 0.8 mg/dL (0.6-1.4); GLOM FILT RATE Estimated 107.9 mL/min (>60); MAGNESIUM 2.1 mg/dL (1.6-3.0)
[2017-03-01] MEDS ORDERED: PREDNISONE10 MG PO (15:55)
[2017-03-01] MEDS ORDERED: LASIX PO (15:58)
[2017-03-20] MEDS ORDERED: TASPRIN325 MG PO (16:53)
== END 2017-03-01 15:37 | disposition home or self-care (01) | DRG 291 ==
LOC: CED 22:08 → C3A PCU 02-25 01:50 → CEDOF 02-25 01:50 → C3A PCU 02-25 01:59 → CED 02-25 01:59 → CICCU2 02-25 03:07 → CEDOF 02-25 03:07 → CICCU2 02-25 06:00 → C3A PCU 02-25 20:59 → CICCU2 02-25 20:59 → C3A PCU 02-25 20:59
PROVIDERS: Emergency Medicine; Internal Medicine; Internal Medicine Cardiovascular Disease; Nurse Practitioner
DX: I11.0 Hypertensive heart disease with heart failure (principal); J96.22 Acute and chronic respiratory failure with hypercapnia; J96.21 Acute and chronic respiratory failure with hypoxia; Z99.81 Dependence on supplemental oxygen; J44.1 Chronic obstructive pulmonary disease with (acute) exacerbation; I50.23 Acute on chronic systolic (congestive) heart failure; E66.01 Morbid (severe) obesity due to excess calories; I25.5 Ischemic cardiomyopathy; G47.33 Obstructive sleep apnea (adult) (pediatric); Z95.810 Presence of automatic (implantable) cardiac defibrillator; Z95.1 Presence of aortocoronary bypass graft; I08.8 Other rheumatic multiple valve diseases; I70.0 Atherosclerosis of aorta; E78.5 Hyperlipidemia, unspecified; F32.9 Major depressive disorder, single episode, unspecified; I45.10 Unspecified right bundle-branch block; Z90.49 Acquired absence of other specified parts of digestive tract; E87.6 Hypokalemia; F17.210 Nicotine dependence, cigarettes, uncomplicated
CPT/HCPCS: 36415; 36600; 71010; 71020; 80048; 80053; 82308; 82550; 82553; 82803; 83735; 83880; 84484; 85025; 85027; 85610; 85730; 87070; 87205; 93005; 93970; 94640; 94660; 94760; 96374; 96375; 99285; J0692; J1250; J2920; J2930